=== PATIENT | male | born 1950 | race Caucasian/White ===

== ENCOUNTER 2020-07-22 22:24 | Inpatient (IN) | payer MEDICARE ==
[~2020-07-22] VITALS: Ht 121.9 cm; Wt 82.6 kg
[~2020-07-22 22:24] MED LIST: AMIT100TA PO; ASPI1TAB6 PO; BENA25TA4 PO; CARV25TA PO; FERR325T3 PO; HUMA100I3 SC; LANTINJ4 SC; LIPI80TA PO; LISI20TA33 PO; LYRI75CA PO; MORP30TASA PO; OXYC1SOL3 PO; TETR15DR16 OU; VANC10005 IV; [UNRECOGNIZED DRUG - SUPPLY] IV
[2020-07-23] VITALS (29 sets, daily range): BP systolic 121–170; BP diastolic 55–76; PULSE 75
[2020-07-23 02:53] LABS: BASO % 0.3 % (0.0-1.0); EOS % 0.3 % (0.0-3.0); HEMATOCRIT 28.8 % (42.0-52.0); HEMOGLOBIN 8.7 g/dl (13.5-17.5); LYMPH # 1.1 10^3/uL (1.5-5.0); LYMPH % 15.8 % (24.0-44.0); MEAN CORPUSCULAR HEMOGLOBIN 28.7 pg (27.0-33.0); MEAN CORPUSCULAR HGB CONC 30.2 g/dl (32.0-36.5); MONO # 0.9 10^3/uL (0.0-0.8); MONO % 12.5 % (2.0-8.0); NEUTROPHILS # 5.1 10^3/uL (1.5-8.5); NEUTROPHILS % 70.7 % (36.0-66.0); PLATELET COUNT, AUTOMATED 279 10^3/uL (150-450); RED BLOOD COUNT 3.03 10^6/uL (4.30-6.10); WHITE BLOOD COUNT 7.2 10^3/uL (4.0-10.0)
[2020-07-23 03:31] LABS: ALBUMIN 2.6 GM/DL (3.2-5.2); BILIRUBIN,TOTAL 0.5 MG/DL (0.2-1.0); CREATININE FOR GFR 3.45 MG/DL (0.70-1.30); MAGNESIUM LEVEL 1.8 MG/DL (1.8-2.4); TOTAL PROTEIN 6.3 GM/DL (6.4-8.2)
--- NOTE | 2020-07-23 03:56 | HPEPDOC ---
[facility] Medical History & Physical Date of Admission Jul 23, 2020 Date of Service: Jul 23, 2020 Attending Physician: GRACIELA ARELLANO MD History and Physical CHIEF COMPLAINT: shortness of breath, abdominal pain HISTORY OF PRESENT ILLNESS: 69 year old male with PMHx detailed below who initially presented to [facility] for acute onset shortness of breath and chest tightness. He states that his symptoms began on Monday morning about 10 minutes after waking up, while he was still laying comfortably in bed. He states he has never had symptoms like this before. He describes shortness of breath which is worse upon sitting up and improve while laying flat. He also notes a chest tightness in the middle of his chest. He states this is worse when he is feeling short of breath. He denies radiation of the pain. He reports lightheadedness as well during the episodes of shortness of breath. Additionally the patient has had abdominal pain which he states has been present since Monday as well. He notes he has been vomiting 4-6 times per day and unable to keep down sold food at times. He states he has had decreased appetite for the past 6 weeks as he has been in and out of the hospital. He notes he has lost about 15lbs over the past 6 weeks. He denies bloody vomitus. He states he is incontinent of stool and has not been made aware of any blood in his stool or black, tarry stools. While the patient was admitted to [facility], he was transfused with 2 units PRBCS due to Hg level of 6.7. He was also evaluated with CT of the abdomen and pelvis for his abdominal pain, discussed below. Additionally a CT chest was ordered. PAST MEDICAL HISTORY: Diabetes Mellitus PVD s/p bilateral BKA ESRD on HD Hx of PE, on Eliquis Anemia of chronic disease CHF with diastolic dysfunction Depression Seizure disorder Hypothyroidism PAST SURGICAL HISTORY: Tonsillectomy and adenoidectomy Posttraumatic rhinoplasty Carpal tunnel release Appendectomy Cholecystectomy Two surgeries for bowel obstructions including bowel resection Bilateral BKA Possible additional procedures related to trauma which the patient cannot elaborate on SOCIAL HISTORY: Never smoker. No alcohol use. No history IV drug or illicit substance use. Lives at home with family. Two dogs at home. 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 Mother from leukemia. ALLERGIES: Please see below. REVIEW OF SYSTEMS: CONSTITUTIONAL: Endorses occasional chills and 15lb weight loss. Denies fevers, night sweats, fatigue. HEENT: Denies change in vision, change in hearing. CARDIOVASCULAR: Positive per HPI RESPIRATORY: Denies cough, wheezing. GASTROINTESTINAL: Positive per HPI. Denies diarrhea, constipation, blood in stool. GENITOURINARY: Pt makes little urine, states it has been somewhat less frequent recently. SKIN: Denies rash, lesions. MUSCULOSKELETAL: Endorses chronic back pain which is currently exacerbated. NEUROLOGICAL: Denies headache, dizziness. PSYCHIATRIC: Denies change in mood. HOME MEDICATIONS: Please see below. PHYSICAL EXAMINATION: VITAL SIGNS: See below GENERAL: Alert, comfortable, in no acute distress HEENT: Normocephalic, atraumatic, sclera anicteric, moist mucous membranes NECK: Supple, trachea midline CARDIOVASCULAR: Regular rate and rhythm, normal S1 and S2. No murmurs, rubs, or gallops RESPIRATORY: Breath sounds diminished at the bases bilaterally. Clear in the upper lung gresham bilaterally. No wheezing, rhonchi, or rales. ABDOMEN: Tender to light palpation over the entire right side of the abdomen and somewhat over the LUQ as well. otherwise soft, nondistended, bowel sounds present. EXTREMITIES: No edema. Bilateral BKA. SKIN: Hematoma present over the upper right abdomen NEUROLOGIC: Alert and oriented x3 to person, place and time. No focal deficits appreciated PSYCHIATRIC: Mood and affect appropriate LABORATORY DATA: See below. IMAGING: Reports from [facility] reviewed for CT abdomen/pelvis without contrast and CT chest without contrast MICROBIOLOGY: Please see below. ASSESSMENT: 69 year old male with PMHx including --- who presented with acute onset shortness of breath and abdominal pain with vomiting was transferred from [facility] for evaluation and treatment of pericardial effusion along with further evaluation of abdominal pain PLAN: 1. Shortness of breath likely secondary to pericardial effusion and bilateral pleural effusions vs ACS vs PE - Dr. Palomo consulted of cardiothoracic surgery, appreciate his input and recommendations - CT reported "hemorrhagic pericardial effusion", but review by Dr. 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 TSH, Rh factor and KIM pending for other causes of pericardial effusion - Stat echocardiogram ordered. Trend troponin level. CTA to rule out PE 2. Abdominal pain possibly secondary to infectious duodenitis vs PUD vs cystitis - CT report from [facility] show possible duodenitis and peptic ulcer disease as well as small amount of ascites and hazy mucosal thickening around the bladder. - Lipase pending. Lactic acid pending. - Will repeat the CT abdomen/pelvis in the AM with contrast - Clear liquid diet for now, would consider advancing if tolerated 3. ESRD on hemodialysis - Nephrology consulted for management of hemodialysis while inpatient - Trend BMP daily 4. Acute on chronic anemia - s/p 2 units PRBC transfusion at [facility] on 07/21 - trend CBC daily 5. Hx pulmonary embolism - Eliquis on hold due to question of hemorrhagic effusion 6. Poor peripheral access - PICC line placement ordered 7. Hypothyroidism - continue home levothyroxine 8. Seizure disorder - continue home Keppra DVT prophylaxis: hold on medical prophylaxis due to question of hemorrhagic effusion Disposition: admitted inpatient to ICU expect greater than two midnights stay Laboratory Data Labs 24H Laboratory Tests 2 07/23/20 02:48: Immature Granulocyte % (Auto) 0.4, Neutrophils (%) (Auto) 70.7H, Lymphocytes (%) (Auto) 15.8L, Monocytes (%) (Auto) 12.5H, Eosinophils (%) (Auto) 0.3, Basophils (%) (Auto) 0.3, Neutrophils # (Auto) 5.1, Lymphocytes # (Auto) 1.1L, Monocytes # (Auto) 0.9H, Eosinophils # (Auto) 0.0, Basophils # (Auto) 0.0, Nucleated Red Blood Cells % (auto) 0.0 CBC/BMP Laboratory Tests 07/23/20 02:48 Home Medications Scheduled Apixaban (Eliquis) 5 Mg Tablet, 5 MG PO BID Atorvastatin Calcium (Atorvastatin Calcium) 80 Mg Tablet, 80 MG PO QHS Carvedilol (Carvedilol) 6.25 Mg Tablet, 6.25 MG PO BID Cholecalciferol (Vitamin D3) (Vitamin D3) 1,000 Unit Tablet, 2,000 UNITS PO DAILY Donepezil HCl (Donepezil HCl) 5 Mg Tablet, 5 MG PO QHS Folic Acid/Vit B Complex and C (Rhina-Aubree Tablet) 0.8 Mg Tablet, 1 TAB PO DAILY Furosemide (Lasix) 80 Mg Tablet, 80 MG PO BID Insulin Glargine (Lantus) 100 Unit/1 Ml Vial, 10 UNITS SC QHS Insulin Human Lispro (Humalog) 100 Unit/1 Ml Vial, 15 UNITS SC AC GIVE UP TO 5 ADDITIONAL UNITS IF GLUCOSE > 250 Levetiracetam (Keppra) 500 Mg Tablet, 500 MG PO BID Levothyroxine Sodium (Synthroid) 50 Mcg Tablet, 25 MCG PO DAILY Lidocaine (Lidocaine) 5% Adh..patch, 1 PATCH TOP 3XW APPLY TO LOWER BACK BEFORE DIALYSIS Oxycodone HCl (Oxycodone HCl) 10 Mg Tablet, 10 MG PO QHS Oxycodone HCl (Oxycodone HCl) 10 Mg Tablet, 10 MG PO 4XWK ON NON-DIALYSIS DAYS Oxycodone HCl (Oxycodone HCl) 10 Mg Tablet, 15 MG PO 3XW BEFORE DIALYSIS ON DIALYSIS DAYS ONLY Pantoprazole Sodium (Pantoprazole Sodium) 40 Mg Tablet.dr, 40 MG PO DAILY Polyethylene Glycol 3350 (Miralax) 17 Gm Powd.pack, 17 GM PO Q2D Sertraline HCl (Sertraline HCl) 50 Mg Tablet, 50 MG PO DAILY Silver Sulfadiazine (Ssd) 50 Gm Cream..g., 1 DOSE TOP ASDIRECTED APPLY TO BUTTOCKS AFTER BATHROOM Tamsulosin HCl (Flomax) 0.4 Mg Capsule, 0.4 MG PO DAILY Trazodone HCl (Trazodone HCl) 50 Mg Tablet, 50 MG PO QHS Scheduled PRN Albuterol Sulfate (Ventolin Hfa) 18 Gm Hfa.aer.ad, 2 PUFFS INH BID PRN for SHORTNESS OF BREATH Diphenhydramine HCl (Diphenhydramine HCl) 25 Mg Capsule, 25 MG PO BID PRN for ITCHING Ondansetron HCl (Zofran) 4 Mg Tablet, 4 MG PO Q8H PRN for NAUSEA Oxycodone HCl (Oxycodone HCl) 10 Mg Tablet, 10 MG PO BID PRN for PAIN 4-6 HOURS BETWEEN DOSES Allergies Coded Allergies: Penicillins (Verified Allergy, Unknown, 07/23/20) cephalexin (Verified Allergy, Unknown, 07/23/20) chocolate flavor (Verified Allergy, Unknown, 07/23/20) ketorolac (Verified Allergy, Unknown, 07/23/20) metformin (Verified Allergy, Unknown, 07/23/20) methadone (Verified Allergy, Unknown, 07/23/20) nalbuphine (Verified Allergy, Unknown, 07/23/20) tetracycline (Verified Allergy, Unknown, 07/23/20) GME ATTESTATION GME ATTESTATION My faculty preceptor for this patient encounter was physically present during the encounter and was fully available. All aspects of the patient interview, examination, medical decision making process, and medical care plan development were reviewed and approved by the faculty preceptor. The faculty preceptor is aware and concurs with the plan as stated in the body of this note and will attest to such by his/her cosignature. ATTENDING NOTE ISim, have independently examined this patient and performed my own physical exam, as well as reviewed the documentation and edited where necessary. I have discussed in detail with the resident / student the findings and plan of treatment as documented by the resident / student and edited their note. I agree with their findings and treatment plan and have edited their documentation. I will continue to follow the patient during this hospital stay. CELINA SLADE D.O. Jul 23, 2020 03:56 GRACIELA ARELLANO MD Jul 23, 2020 20:38
[2020-07-23] MEDS ORDERED: DEXTROSE 50% 50 ML SYRINGE IV PRN (04:20)
[2020-07-23] MEDS ORDERED: GLUCAGON INJ 1MG VIAL SC PRN (04:20)
[2020-07-23] MEDS ORDERED: GLUCOSE 4GM CHEW TABLET PO PRN (04:20)
[2020-07-23] MEDS ORDERED: LEVALBUTEROL 1.25 MG/0.5 ML CONCENTRATE NEB NEB PRN (04:25)
[2020-07-23] MEDS ORDERED: TRAZ-252 PO (05:08)
[2020-07-23] MEDS ORDERED: ZOFR4TAB16 PO (05:08)
[2020-07-23] MEDS ORDERED: INSULANT SC (05:08)
[2020-07-23] MEDS ORDERED: PANT40TA29 PO (05:08)
[2020-07-23] MEDS ORDERED: RENATAB5 PO (05:08)
[2020-07-23] MEDS ORDERED: SENN1TAB41 PO (05:08)
[2020-07-23] MEDS ORDERED: SYNT50TA PO (05:08)
[2020-07-23] MEDS ORDERED: ATOR40TA75 PO (05:08)
[2020-07-23] MEDS ORDERED: KEPP1TAB PO (05:08)
[2020-07-23] MEDS ORDERED: OXYC-517 PO (05:08)
[2020-07-23] MEDS ORDERED: D31000TA2 PO (05:08)
[2020-07-23] MEDS ORDERED: INSUHUMDS SC (05:08)
[2020-07-23] MEDS ORDERED: SERT50TA29 PO (05:08)
[2020-07-23] MEDS ORDERED: CARV6.25 PO (05:08)
[2020-07-23] MEDS ORDERED: MIRA1POW3 PO (05:08)
[2020-07-23] MEDS ORDERED: DIPH25CA32 PO (05:08)
[2020-07-23] MEDS ORDERED: TUMS500C PO ×2 (05:08)
[2020-07-23] MEDS ORDERED: PATIENT COMMENT (05:15)
[2020-07-23 06:48] LABS: CK-MB VALUE MASS 1.4 NG/ML (<3.6); MB/CK RELATIVE INDEX 6.09 (< OR =4); THYROID STIMULATING HORMONE 0.578 uIU/ML (0.358-3.740); TROPONIN I 0.02 NG/ML (< 0.10)
[2020-07-23] MEDS: HumaLOG INSULIN (NovoLOG) PER UNIT SC SCH ×4 (07:52→21:00)
[2020-07-23] MEDS: ONDANSETRON 4MG/2ML VIAL IV PRN ×2 (07:52→18:08)
[2020-07-23] MEDS ORDERED: LIDOCAINE 1% MDV 20ML VIAL As Ordered ONE (07:58)
[2020-07-23] MEDS ORDERED: LEVALBUTEROL 1.25 MG/0.5 ML CONCENTRATE NEB NEB SCH (08:00)
--- NOTE | 2020-07-23 08:14 | REP ---
INDICATION: pericardial effusion COMPARISON: None. TECHNIQUE: Portable AP view of the chest FINDINGS: The cardiac silhouette is significantly enlarged and somewhat bulbous. Underlying pericardial effusion is suspected. Pleural effusions and basilar atelectasis noted. No pneumothorax. Skeletal structures intact. IMPRESSION: Cardiomegaly consistent with pericardial effusion. Bilateral pleural effusions and bibasilar atelectasis. <Electronically signed by Paolo Farmer > 07/23/20 0826
--- NOTE | 2020-07-23 08:34 | ECGEPIP ---
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 Order Number: [id number] Reading MD: Aditi Blue Measurements Intervals [place] Rate: 76 P: -25 AR: 198 QRS: 21 QRSD: 80 T: 138 QT: 376 QTc: 423 Interpretive Statements Normal sinus rhythm STT wave abnormality, consider lateral ischemia NoPrior Electronically Signed on 07-23-2020 8:34:40 EST by Aditi Blue
[2020-07-23] MEDS ORDERED: OXYC10TA12 PO ×4 (08:57)
[2020-07-23] MEDS ORDERED: ATOR80TA59 PO (08:57)
[2020-07-23] MEDS ORDERED: FLOM0.4C39 PO (08:57)
[2020-07-23] MEDS ORDERED: VENTAER INH (08:57)
[2020-07-23] MEDS ORDERED: ELIQ5TAB PO (08:57)
[2020-07-23] MEDS ORDERED: SILV50CR TOP (08:57)
[2020-07-23] MEDS ORDERED: LIDO1PAD TOP (08:57)
[2020-07-23] MEDS ORDERED: DONE5TAB82 PO (08:57)
[2020-07-23] MEDS ORDERED: LASI80TA3 PO (08:57)
[2020-07-23] MEDS ORDERED: ISOVUE-370 76% 100ML VIAL As Ordered ONE (09:28)
[2020-07-23] MEDS ORDERED: LIDOCAINE 5% (LIDODERM) PATCH TD ONE (09:55)
--- NOTE | 2020-07-23 10:05 | REP ---
INDICATION: possible PE COMPARISON: None. TECHNIQUE: Axial contrast enhanced images from the thoracic inlet to the upper abdomen using pulmonary embolus technique with multiplanar re-formations. 75 ml Isovue 370 intravenous contrast material administered without complication. This CT examination was performed using the following dose reduction techniques: Automated exposure control, adjustment of mA and/or kv according to the patient's size, and use of iterative reconstruction technique. FINDINGS: Satisfactory enhancement of the pulmonary vasculature is achieved and no filling defects are identified to suggest pulmonary embolus. Thoracic aorta is normal and without aneurysm or dissection. There is a moderate to large pericardial effusion measuring roughly approximately 16 mm in average width suggesting a volume between 250-500 mL. The pericardial fluid is greater than 40 Hounsfield units suggesting complex proteinaceous or hemorrhagic fluid. No underlying cardiomegaly is appreciated. The lung gresham demonstrate poor inspiratory effort along with near complete collapse of the left lower lobe and bilateral atelectasis with small right and moderate left pleural effusions. No pneumothorax. The tracheobronchial tree is relatively patent. Surrounding musculoskeletal structures demonstrate age-related degenerative changes. Limited upper abdomen demonstrates normal bilateral adrenal glands. IMPRESSION: 1. No evidence for pulmonary embolus. Normal appearance of the thoracic aorta. 2. Moderate to large pericardial effusion. No underlying cardiomegaly. 3. Pleural effusions, bibasilar atelectasis, and partial collapse to the left lower lobe. <Electronically signed by Paolo Farmer > 07/23/20 [id number]
--- NOTE | 2020-07-23 10:09 | REP ---
INDICATION: rectus hematoma. COMPARISON: None. TECHNIQUE: Axial contrast-enhanced images of the abdomen using 100 cc Isovue 370 intravenous contrast material with coronal and sagittal reformations. . This CT examination was performed using the following dose reduction techniques: Automated exposure control, adjustment of mA and/or kv according to the patient's size, and use of iterative reconstruction technique. FINDINGS: A small amount of ascites is appreciated primarily along the right pericolic gutter along with a edematous stranding through the mesentery. Liver, spleen, and bilateral adrenal glands are grossly within normal limits. The kidneys appear symmetric lead atrophic and without acute perinephric stranding or hydronephrosis. The pancreas is atrophic and calcifications are identified through the parenchyma and primarily at the level of the pancreatic head and uncinate process measuring up to approximately 13 mm. Patient appears to be status post cholecystectomy and bowel surgery in the right upper abdomen. The visualized enteric system including stomach, and portions of the small and large bowel are without obvious acute process. No obstruction. No free air to suggest perforation. Scattered colonic diverticula noted. Atherosclerotic changes to the aorta and vasculature without aneurysm or dissection. Musculoskeletal structures demonstrate degenerative changes. IMPRESSION: 1. Small amount of ascites and mild edematous infiltration through the visualized mesentery nonspecific and without obvious cause or etiology. 2. Chronic changes including atrophic appearance to the kidneys and atrophic appearance to the pancreas with findings to suggest chronic pancreatitis. 3. Scattered colonic diverticula. <Electronically signed by Paolo Farmer > 07/23/20 1001
--- NOTE | 2020-07-23 11:04 | ECHO ---
DATE OF PROCEDURE: 07/23/2020 Age: 69 Gender: Male Height: 48 inches Weight: 171 pounds Body surface area: 1.46 m2 PATIENT LOCATION: Inpatient ICU, Room 3202. REFERRING PHYSICIAN: Og Jain MD and Felipe Palomo MD. INDICATION: Pericardial effusion. MEASUREMENTS: 2D Measurements: RV 3.0 cm LV 4.7 cm Septum 1.2 cm Posterior wall 1.2 cm Aortic Root 4.0 cm Ascending aorta 4.4 cm LA 3.8 cm LVEF 65% Doppler Measurements: AV 1.28 m/s LVOT 0.93 m/s MV-E 76, A 57, E/A ratio 1.3 Early mitral deceleration time 253 msec E prime medial 5.6, A prime medial 7.3, E prime lateral 5 Average E/E prime ratio 14.3/PCWP 19.7 mmHg PV 0.85 m/s Pulmonary artery acceleration time 98 msec PASP 37 mmHg IVC 2.6 cm COMMENTS: Normal sinus rhythm without intraventricular conduction disturbance. M-mode and two-dimensional echocardiography was performed with pulse, continuous wave, color flow, and tissue Doppler studies. Borderline concentric left ventricular hypertrophy with normal wall motion. Borderline left atrial enlargement with grade 2 LV diastolic dysfunction and mildly elevated estimated mean left atrial pressure. Normal right heart chamber sizes with no more than subtle right ventricular compression with normal right ventricular wall motion otherwise and Doppler evidence of no more than mild pulmonary hypertension. Normal right atrial size, but prominently dilated inferior vena cava with absent respiratory collapse in keeping with elevated central venous pressure. Mildly dilated aortic root and [id number] dilated ascending aorta. Three equal size aortic cusps with slightly thickened cusp edges, but adequate cusp separation and no more than trace to very mild aortic insufficiency. Subtle degenerative changes of his mitral valve apparatus with normal leaflet excursion and no more than trace insufficiency. Normal appearing tricuspid valve with very mild insufficiency. Large pericardial effusion measuring 2.8 cm anteriorly, 2.0 cm inferiorly and 0.8 cm laterally. Associated coagulum adherent to the right ventricular free wall. Pulse Doppler signals did have significant respiratory variation with respiration. This combined with his dilated IVC would be in keeping with a hemodynamically significant pericardial effusion. A preliminary report of this study was relayed to Dr. Palomo at 0810 a.m. 07/23/2020. [facility]
[2020-07-23] MEDS: oxyCODONE 5MG TAB PO PRN (11:17)
[2020-07-23] MEDS ORDERED: oxyCODONE 5MG TAB PO ONE (11:20)
[2020-07-23] MEDS ORDERED: ERTAPENEM SODIUM 1 GM in NS MINI-BAG PLUS 50 ML IV SCH (11:40)
[2020-07-23 12:54] LABS: CK-MB VALUE MASS < 1.0 NG/ML (<3.6); CPK CREATINE PHOSPHOKINASE 20 U/L (39-308); TROPONIN I 0.02 NG/ML (< 0.10)
[2020-07-23 13:20] LABS: HEMATOCRIT 27.1 % (42.0-52.0); HEMOGLOBIN 8.5 g/dl (13.5-17.5); MEAN CORPUSCULAR HEMOGLOBIN 28.9 pg (27.0-33.0); MEAN CORPUSCULAR HGB CONC 31.4 g/dl (32.0-36.5); MEAN CORPUSCULAR VOLUME 92.2 fl (80.0-96.0); PLATELET COUNT, AUTOMATED 273 10^3/uL (150-450); RED BLOOD COUNT 2.94 10^6/uL (4.30-6.10); WHITE BLOOD COUNT 6.3 10^3/uL (4.0-10.0)
[2020-07-23] MEDS ORDERED: LEVALBUTEROL HFA 45MCG/ACT 15 GM INHALER INH PRN (13:30)
[2020-07-23] MEDS: LEVALBUTEROL HFA 45MCG/ACT 15 GM INHALER INH SCH ×2 (14:05→20:08)
[2020-07-23 16:06] LABS: HEPATITIS B CORE ANTIBODY IGM NEGATIVE (NEGATIVE); HEPATITIS B SURFACE ANTIBODY NEGATIVE (POSITIVE); HEPATITIS B SURFACE ANTIGEN NEGATIVE (NEGATIVE); HEPATITIS C VIRUS ABY INDEX < 0.0 INDEX (<0.8)
--- NOTE | 2020-07-23 17:00 | REP ---
INDICATION: poor access, double lumen please. COMPARISON: None. TECHNIQUE: The procedure was performed under the direct supervision of Dr. Varghese. The risks and benefits of the procedure were explained to the patient and informed consent was obtained. The procedure was performed in the ICU at the bedside. The left basilic vein was localized using ultrasound guidance. The skin was prepped and draped in a sterile fashion. 2% lidocaine was used as a local anesthetic. Using ultrasound guidance the basilic vein was cannulated and a 0.018 guidewire was inserted. The needle was removed and a 5.5 Cameroonian dilator and peel-away sheath was inserted over the guide wire. A 5.5 Cameroonian dual lumen catheter was cut to length of 42 cm. The dilator was removed and the catheter was inserted over the guide wire. A portable chest x-ray was performed and the image demonstrates the tip of the catheter to be in the SVC. The peel-away sheath was removed and the catheter was flushed with heparinized saline as per Hospital protocol. The catheter was affixed to the skin and a sterile dressing was applied. The patient tolerated the procedure well and there were no immediate complications. FINDINGS: None IMPRESSION: PICC line insertion with Site-Rityamila. The tip of the catheter is in the SVC. <Electronically signed by Finn Lisa > 07/23/20 1555 <Electronically signed by Mario Varghese > 07/23/20 [id number]
[2020-07-23] MEDS: ERTAPENEM SODIUM 0.5 GM in NS 50 ML IV SCH (18:30)
--- NOTE | 2020-07-23 18:47 | IPNPDOC ---
Subjective Date Seen The patient was seen on 07/23/20. Subjective Chief Complaint/HPI Mr Andrade is a 69-year-old male with end-stage renal disease on dialysis MWF and diabetes mellitus who was transferred here from [facility] who presents with dyspnea and chest tightness and found to have pericardial effusion, pleural effusion, and acute anemia. This morning, is complaining of severe back and abdominal pain. He tells me that it started on Monday. Denies any trauma, but he did have his COVID vaccination on Monday. Otherwise, he was tested for COVID here in anticipation for OR tomorrow. His COVID test was positive. He had COVID pneumonia in April 2020. Symptomatic with a cough. Retested him with the antigen and it was negative. He does not actively have COVID and isolation has been removed Objective Physical Examination General Exam: Positive: Alert, Cooperative Eye Exam: Positive: EOMI; Negative: Sclera icteric ENT Exam: Positive: Atraumatic Neck Exam: Positive: Supple Chest Exam: Positive: Diminished Heart Exam: Positive: Rate Normal, Regular Rhythm Abdomen Exam: Positive: Normal bowel sounds, Soft, Tenderness (extremely tender on the right side) Neuro Exam: Positive: Normal Speech, Cranial Nerves 3-12 NL Psych Exam: Positive: Mental status NL Assessment /Plan Assessment Mr Andrade is a 69-year-old male with end-stage renal disease on dialysis MWF and diabetes mellitus who was transferred here from [facility] who presents with dyspnea and chest tightness and found to have pericardial effusion, pleural effusion, and acute anemia. He is on Eliquis for history of PE. Dr. Palomo was consulted for the pericardial effusion and pleural effusion. Plan to go to OR tomorrow. Otherwise, nephrology consulted for dialysis. Gen. surgery was consulted for right-sided abdominal tenderness. Patient was started on ertapenem for possible infectious duodenitis/colitis. Plan/VTE VTE Prophylaxis Ordered?: Yes Plan 1. Bilateral pleural effusion Dr. Palomo consulted, recommendations appreciated Possibly will be going to the OR tomorrow morning 2. Pericardial effusion Dr. Palomo consulted, recommendations appreciated Echocardiogram demonstrates large pericardial effusion measuring 2.8 cm anteriorly, 2 cm inferiorly, and 0.8 cm laterally 3. Severe right abdominal pain and tenderness CT abdomen and pelvis does not demonstrate hemoperitoneum Light pressure causes severe pain out of proportion Lactic acid 1.3 Consulted general surgery, Dr. Alba, who will see the patient 4. End-stage renal disease on dialysis Normally receives dialysis MWF Missed dialysis on Monday, receiving dialysis today Nephrology following recommendations appreciated 5. Acute on chronic anemia Received 2 units of packed RBCs at [facility] heparin on 07/21/2020 Trend CBC Hold Eliquis 6. History of pulmonary embolism Hold Eliquis 7. Hypothyroidism Continue levothyroxine 8. Seizure disorder Continue Keppra 9. DVT prophylaxis SCDs and teds VS, I&O, 24H, Fishbone Vital Signs/I&O Vital Signs Date Time Temp Pulse Resp B/P (MAP) Pulse Ox O2 Delivery O2 Flow Rate FiO2 07/23/20 18:00 72 121/59 (79) 100 Nasal Cannula 4.0 07/23/20 16:01 97.4 20 I&O- Last 24 Hours up to 6 AM 07/23/20 06:00 Intake Total 0 ml Output Total 0 ml Balance 0 ml Laboratory Data 24H LABS Laboratory Tests 2 07/23/20 02:48: Immature Granulocyte % (Auto) 0.4, Neutrophils (%) (Auto) 70.7H, Lymphocytes (%) (Auto) 15.8L, Monocytes (%) (Auto) 12.5H, Eosinophils (%) (Auto) 0.3, Basophils (%) (Auto) 0.3, Neutrophils # (Auto) 5.1, Lymphocytes # (Auto) 1.1L, Monocytes # (Auto) 0.9H, Eosinophils # (Auto) 0.0, Basophils # (Auto) 0.0, Nucleated Red Blood Cells % (auto) 0.0, Anion Gap 8, Glomerular Filtration Rate 19.0L, Calcium Level 8.0L, Magnesium Level 1.8, Total Bilirubin 0.5, Aspartate Amino Transf (AST/SGOT) 24, Alanine Aminotransferase (ALT/SGPT) 37, Alkaline Phosphatase 102, Total Protein 6.3L, Albumin 2.6L, Albumin/Globulin Ratio 0.7 07/23/20 04:07: Lactic Acid Level 1.3, Lipase 74 07/23/20 04:40: Total Creatine Kinase 23L, Creatine Kinase MB 1.4, Creatine Kinase MB Relative Index 6.09H, Troponin I 0.02, Thyroid Stimulating Hormone (TSH) 0.578, Rheuma toid Factor < 10.0 07/23/20 12:06: Nucleated Red Blood Cells % (auto) 0.0, Coronavirus (COVID-19)(PCR) POSITIVEA 07/23/20 12:23: Total Creatine Kinase 20L, Creatine Kinase MB < 1.0, Creatine Kinase MB Relative Index 5.00H, Troponin I 0.02 07/23/20 12:39: Hepatitis B Surface Antigen NEGATIVE, Hepatitis B Surface Antibody NEGATIVE, Hepatitis B Core IgM Antibody NEGATIVE, Hepatitis C Antibody Index < 0.0 CBC/BMP Laboratory Tests 07/23/20 02:48 07/23/20 12:06 Microbiology Microbiology 07/23/20 Blood Culture, Received Pending ROOPA AMBROSIO 11, 2021 18:47
[2020-07-23] MEDS: **NOTE PATIENT COMMENT** MISC XX SCH (21:00)
[2020-07-23 21:03] LABS: CK-MB VALUE MASS 1.4 NG/ML (<3.6); CPK CREATINE PHOSPHOKINASE 19 U/L (39-308); MB/CK RELATIVE INDEX 7.37 (< OR =4); TROPONIN I < 0.02 NG/ML (< 0.10)
[2020-07-23] MEDS: DONEPEZIL 5 MG TAB PO SCH (22:02)
[2020-07-23] MEDS: CARVedilol 6.25 MG TAB PO SCH (22:03)
[2020-07-23] MEDS: traZODone 50 MG TAB PO SCH (22:03)
[2020-07-23] MEDS: levETIRAcetam 250MG TABLET (KEPPRA) PO SCH (22:04)
[2020-07-23] MEDS: ATORVASTATIN 20 MG TAB PO SCH (22:05)
[2020-07-23] MEDS: oxyCODONE 5MG TAB PO SCH (22:09)
[2020-07-24] VITALS (16 sets, daily range): BP systolic 85–151; BP diastolic 50–77
[2020-07-24] MEDS: D5W/0.9% SODIUM CHLORIDE 1,000 ML IV SCH ×2 (00:12→13:20)
[2020-07-24] MEDS: LEVALBUTEROL HFA 45MCG/ACT 15 GM INHALER INH SCH ×4 (02:38→20:11)
[2020-07-24] MEDS: LEVOTHYROXINE 25MCG TABLET (0.025MG) PO SCH (05:12)
[2020-07-24] MEDS: ONDANSETRON 4MG/2ML VIAL IV PRN (05:23)
[2020-07-24] MEDS: oxyCODONE 5MG TAB PO PRN (05:24)
[2020-07-24 05:45] LABS: BASO % 0.4 % (0.0-1.0); EOS % 0.6 % (0.0-3.0); HEMATOCRIT 26.2 % (42.0-52.0); HEMOGLOBIN 7.9 g/dl (13.5-17.5); LYMPH # 0.8 10^3/uL (1.5-5.0); LYMPH % 15.2 % (24.0-44.0); MEAN CORPUSCULAR HEMOGLOBIN 28.6 pg (27.0-33.0); MEAN CORPUSCULAR HGB CONC 30.2 g/dl (32.0-36.5); MEAN CORPUSCULAR VOLUME 94.9 fl (80.0-96.0); MONO # 0.7 10^3/uL (0.0-0.8); MONO % 12.2 % (2.0-8.0); NEUTROPHILS # 3.9 10^3/uL (1.5-8.5); PLATELET COUNT, AUTOMATED 244 10^3/uL (150-450); RED BLOOD COUNT 2.76 10^6/uL (4.30-6.10); WHITE BLOOD COUNT 5.4 10^3/uL (4.0-10.0)
--- NOTE | 2020-07-24 05:52 | CR.PDOC ---
General Surgery Consultation Date of Consultation 07/23/20 History and Physical CONSULT REPORT FOR: Dr. Johnson (hospitalist service) REASON FOR CONSULTATION: abdominal pain HISTORY OF PRESENT ILLNESS: I was asked to help evaluate the patient's cause for his abdominal pain. He is currently admitted in the ICU for pericardial effusion and pleural effusion. He was transferred from [facility] where he had been admitted since last Monday for shortness of breath, nausea and vomiting. He initially presented about [facility] later transferred to [facility]. He had a prior history of Covid pneumonia. At [facility] he tested positive for Covid. He unfortunately is a poor historian. He tells me he didn't have any abdominal pain prior to last Monday. He points to the right side of the abdomen where his pain is most intense. This is accompanied nausea, retching and vomiting. He denies bloody vomitus. Review of history is from the outside hospital was documenting a chronic abdominal pain though. Also there are reports of a history of GI bleeding where he was admitted at [facility], had an EGD and clipping of the bleed. PAST MEDICAL HISTORY: 1. Diabetes 2. Peripheral vascular disease status post bilateral BKA 3. End-stage renal disease dialysis 4. History of PE on Eliquis 5. Anemia 6. CHF with diastolic dysfunction 7. Seizure disorder PAST SURGICAL HISTORY: INCLUDES: 1. Bilateral below-knee amputation 2. Appendectomy 3. Cholecystectomy 4. Exploratory laparotomy for bowel obstructions with all resection 5. Carpal tunnel release ALLERGIES: Please see below. FAMILY HISTORY: Noncontributory HOME MEDICATIONS: Please see below. REVIEW OF SYSTEMS: GENERAL: Reports fevers, nausea, vomiting, shortness of breath. NECK: Denies any neck pain CARDIOVASCULAR: Reports midsternal chest pain. MUSCULOSKELETAL: Reports chronic back pain. SKIN: Denies rash. NEUROLOGIC: Has seizure disorder. PSYCHIATRIC: Reports depression. HEMATOLOGY/ONCOLOGY: Has prior history of PE maintained on Elliquis. PULMONARY: Reports shortness of breath. GASTROINTESTINAL: Reports associated nausea, vomiting. Reports prior history of gastric ulcer or duodenal ulcer that needed clipping as he was having upper GI bleed back in April. This was done in [facility]. GENITOURINARY: Denies dysuria, frequency, hematuria and nocturia. ENDOCRINE: Denies polydipsia, polyphagia, polyuria, heat or cold intolerance. NUTRITION: Reports poor appetite. PHYSICAL EXAMINATION: VITALS SIGNS: Please see below. GENERAL APPEARANCE:Patient seen, laying in bed, awake, alert, and oriented. Patient complains of right-sided lower abdominal pain, looks moderately uncomfortable during examination SKIN: Warm and dry NECK: Supple, no thyromegaly. No obvious jugular venous distention. LUNGS: Clear to auscultation bilaterally. No wheezing appreciated. HEART: No chest wall abnormalities. Regular rate and rhythm with no murmurs appreciated. ABDOMEN: Abdomen appears mildly distended. He has a long midline incision slightly widened scar from his prior surgeries. No obvious incisional midline hernia. He is exquisitely tender just on light tactile palpation over the right lower paramedian area less so over the left side. He had moderate guarding. When palpating on the right side. EXTREMITIES: Extremities have no deformities. No edema identified ANCILLARIES: . LABORATORY DATA: Please see below. IMAGING STUDIES: He had a CT abdomen and pelvis to [facility] dated 07/22/2020. I do not have the images available. Reading of those said study shows possibility of thickening around the duodenum, possible duodenitis. He had a CT abdomen and pelvis done here dated 07/23/2020 and a small amount of fluid along the right gutter, some mesenteric thickening which is nonspecific. No free air, abscess. Both scan demonstrates some calcification around the pancreas showing possibility of chronic pancreatitis. No acute inflammation on the pancreas. No pseudocysts. IMPRESSION AND PLAN: Right-sided abdominal pain Unclear etiology though he is quite tender over the right paramedian area especially over the right lower abdominal area. His scan shows possibility of chronic pancreatitis so he might have a component of chronic abdominal pain from this. He has a history of possibly a gastric or duodenal ulcer and initial CT from [facility] shows mild thickening at that area so some sort of an ulcer but there is no evidence for any perforation. He is also more tender than I would anticipate for an ulcer type inflammation and this tenderness is mostly on the right lower abdominal wall area away from what I would expect to be for gastric or duodenal ulcer. On the CT in our Hospital there is some suggestion of some mild mesenteric thickening and small amount of fluid along the right gutter. Given that he has pleural and pericardial effusions to fluid is nonspecific and too small to sample. The mesenteric thickening could be some sort of mesenteric panniculitis or just general anasarca for him. Also given history of retching and vomiting could be just abdominal wall straining. He s eems to have some small ecchymosis on the left side so possibility of rectal sheath hematoma given that he is also on anticoagulation is a possibility of there is no big collection that I could see on CT. As of now, no indication for any surgical intervention. Would follow his course for now. Treat the main problem to start with and consider doing endoscopy later on if they source of the pain isn't clear. Continue with PPI treatment for possibility of an ulcer. Vital Signs Vital Signs Date Time Temp Pulse Resp B/P (MAP) Pulse Ox O2 Delivery O2 Flow Rate FiO2 07/24/20 04:00 4.0 07/24/20 04:00 97.6 65 16 112/55 (74) 100 Nasal Cannula I&Os I&O- Last 24 Hours up to 6 AM 07/24/20 06:00 Intake Total 580 ml Output Total 3000 ml Balance -2420 ml Laboratory Data Labs 24H Laboratory Tests 2 07/23/20 12:06: Nucleated Red Blood Cells % (auto) 0.0, Coronavirus (COVID-19)(PCR) POSITIVEA 07/23/20 12:23: Total Creatine Kinase 20L, Creatine Kinase MB < 1.0, Creatine Kinase MB Relative Index 5.00H, Troponin I 0.02 07/23/20 12:39: Hepatitis B Surface Antigen NEGATIVE, Hepatitis B Surface Antibody NEGATIVE, Hepatitis B Core IgM Antibody NEGATIVE, Hepatitis C Antibody Index < 0.0 07/23/20 20:00: Total Creatine Kinase 19L, Creatine Kinase MB 1.4, Creatine Kinase MB Relative Index 7.37H, Troponin I < 0.02 07/23/20 22:15: CBC/BMP Laboratory Tests 07/23/20 12:06 Microbiology Microbiology 07/23/20 Blood Culture, Received Pending Home Medications Scheduled Atorvastatin Calcium (Atorvastatin Calcium) 80 Mg Tablet, 80 MG PO QHS, (Reported) Carvedilol (Carvedilol) 6.25 Mg Tablet, 3.125 MG PO BID Cholecalciferol (Vitamin D3) (Vitamin D3) 1,000 Unit Tablet, 2,000 UNITS PO DAILY, (Reported) Donepezil HCl (Donepezil HCl) 5 Mg Tablet, 5 MG PO QHS, (Reported) Folic Acid/Vit B Complex and C (Rhina-Aubree Tablet) 0.8 Mg Tablet, 1 TAB PO DAILY, (Reported) Furosemide (Lasix) 80 Mg Tablet, 80 MG PO BID, (Reported) Insulin Glargine (Lantus) 100 Unit/1 Ml Vial, 10 UNITS SC QHS, (Reported) Insulin Human Lispro (Humalog) 100 Unit/1 Ml Vial, 15 UNITS SC AC, (Reported) GIVE UP TO 5 ADDITIONAL UNITS IF GLUCOSE > 250 Levetiracetam (Keppra) 500 Mg Tablet, 500 MG PO BID, (Reported) Levofloxacin (Levofloxacin) 250 Mg Tablet, 250 MG PO Q48H Levothyroxine Sodium (Synthroid) 50 Mcg Tablet, 25 MCG PO DAILY, (Reported) Lidocaine (Lidocaine) 5% Adh..patch, 1 PATCH TOP 3XW, (Reported) APPLY TO LOWER BACK BEFORE DIALYSIS Olanzapine (Olanzapine) 5 Mg Tablet, 5 MG PO BID Oxycodone HCl (Oxycodone HCl) 10 Mg Tablet, 10 MG PO QHS, (Reported) Oxycodone HCl (Oxycodone HCl) 10 Mg Tablet, 10 MG PO 4XWK, (Reported) ON NON-DIALYSIS DAYS Oxycodone HCl (Oxycodone HCl) 10 Mg Tablet, 15 MG PO 3XW, (Reported) BEFORE DIALYSIS ON DIALYSIS DAYS ONLY Pantoprazole Sodium (Pantoprazole Sodium) 40 Mg Tablet.dr, 40 MG PO DAILY, (Reported) Polyethylene Glycol 3350 (Miralax) 17 Gm Powd.pack, 17 GM PO Q2D, (Reported) Sertraline HCl (Sertraline HCl) 50 Mg Tablet, 50 MG PO DAILY, (Reported) Silver Sulfadiazine (Ssd) 50 Gm Cream..g., 1 DOSE TOP ASDIRECTED, (Reported) APPLY TO BUTTOCKS AFTER BATHROOM Sucralfate (Sucralfate) 1 Gm Tablet, 1 GM PO ACHS Tamsulosin HCl (Flomax) 0.4 Mg Capsule, 0.4 MG PO DAILY, (Reported) Trazodone HCl (Trazodone HCl) 50 Mg Tablet, 50 MG PO QHS, (Reported) Scheduled PRN Albuterol Sulfate (Ventolin Hfa) 18 Gm Hfa.aer.ad, 2 PUFFS INH BID PRN for SHORTNESS OF BREATH, (Reported) Diphenhydramine HCl (Diphenhydramine HCl) 25 Mg Capsule, 25 MG PO BID PRN for ITCHING, (Reported) Ondansetron HCl (Zofran) 4 Mg Tablet, 4 MG PO Q8H PRN for NAUSEA, (Reported) Oxycodone HCl (Oxycodone HCl) 10 Mg Tablet, 10 MG PO BID PRN for PAIN, (Reported) 4-6 HOURS BETWEEN DOSES Allergies Coded Allergies: Penicillins (Verified Allergy, Unknown, 07/23/20) cephalexin (Verified Allergy, Unknown, 07/23/20) chocolate flavor (Verified Allergy, Unknown, 07/23/20) ketorolac (Verified Allergy, Unknown, 07/23/20) metformin (Verified Allergy, Unknown, 07/23/20) methadone (Verified Allergy, Unknown, 07/23/20) nalbuphine (Verified Allergy, Unknown, 07/23/20) tetracycline (Verified Allergy, Unknown, 07/23/20) MILA CROFT MD Jul 24, 2020 05:52
[2020-07-24 05:55] LABS: INR 1.35
[2020-07-24 05:56] LABS: PARTIAL THROMBOPLASTIN TIME 34.3 SECONDS (24.2-38.5)
[2020-07-24 06:06] LABS: CALCIUM LEVEL 8.1 MG/DL (8.8-10.2); CREATININE FOR GFR 2.78 MG/DL (0.70-1.30); GLOMERULAR FILTRATION RATE 24.4 (>49)
[2020-07-24 06:15] LABS: ABG BASE EXCESS -2.1 (-2.0-2.0); ABG HCO3 23.2 MEQ/L (22.0-26.0); ABG O2 SATURATION 98.9 % (95.0-99.0); ABG PARTIAL PRESSURE O2 174.9 mmHg (75.0-100.0); ABG STANDARD HCO3 22.8 MEQ/L (22.0-26.0); ABG TOTAL CO2 24.5 MEQ/L (23.0-31.0); ABG pH (ARTERIAL) 7.361 UNITS (7.350-7.450)
[2020-07-24] MEDS: HumaLOG INSULIN (NovoLOG) PER UNIT SC SCH ×4 (07:30→20:25)
--- NOTE | 2020-07-24 07:58 | REP ---
INDICATION: pericardial effusion COMPARISON: 07/23/2020 TECHNIQUE: Portable AP view of the chest FINDINGS: Left PICC line with tip in the SVC. Small left axillary arterial stent graft. Cardiac silhouette is again enlarged and consistent with the known pericardial effusion. Lung gresham are essentially unchanged and again suggest pleural effusions and left lower lobe opacity. No pneumothorax. Skeletal structures stable. IMPRESSION: No significant change from prior examination. <Electronically signed by Paolo Farmer > 07/24/20 [id number]
[2020-07-24] MEDS: NEPHRO-VIT TAB (NEPHROCAPS) PO SCH (07:59)
[2020-07-24] MEDS: CARVedilol 6.25 MG TAB PO SCH ×2 (08:00→20:24)
[2020-07-24] MEDS: SERTRALINE HCL 50 MG TAB PO SCH (08:00)
[2020-07-24] MEDS: oxyCODONE 5MG TAB PO SCH ×3 (08:01→20:54)
[2020-07-24] MEDS: TAMSULOSIN 0.4 MG CAP PO SCH (08:01)
[2020-07-24] MEDS: MIRALAX *UNIT DOSE* 17GM PACKET PO SCH (08:01)
[2020-07-24] MEDS: PANTOPRAZOLE 40MG TAB (PROTONIX) PO SCH (08:01)
[2020-07-24] MEDS: levETIRAcetam 250MG TABLET (KEPPRA) PO SCH ×3 (08:01→20:53)
--- NOTE | 2020-07-24 08:10 | CR ---
CONSULTATION DATE: 07/23/2020 REASON FOR CONSULTATION: The patient is seen at the request of the hospitalist service, Dr. Jain, as well as an outside irrigation supervisor at [facility] for a pericardial effusion. HISTORY OF PRESENT ILLNESS: The patient is a 69-year-old white male whose acute story starts this past Monday, when he states he woke up short of breath. Along with the shortness of breath, he had a cough for which he was brining up yellow sputum. He also complains of chills, but not rigor. He denies having a fever. Accompanying this shortness of breath and cough was also chest tightness in the middle of his chest and abdominal pain on his right side. In the last 48 hours, he has had nausea and vomiting and has not been able to eat. He was definitely admitted to [facility] or [facility] where a chest CT was undertaken, which showed a pericardial effusion. The shortness of breath has continued since Monday along with the nausea. The patient has a significant past medical history of diabetes, hypertension, end-stage renal failure requiring dialysis, and is status post bilateral amputations. PAST MEDICAL HISTORY: See HPI. 1. Diabetes. 2. Hypertension. 3. Renal failure requiring dialysis. 4. Positive COVID in April requiring an 11 day hospital stay without the need for mechanical ventilation. 5. Pulmonary embolism on Eliquis. PAST SURGICAL HISTORY: 1. Numerous orthopedic procedures for fractured bones including his knees, elbows, and femur all secondary to trauma and accidents. 2. Two exploratory laparotomies and lysis of adhesions. 3. Four back surgeries. HOME MEDICATIONS: 1. Amitriptyline 100 mg q. h.s. 2. Aspirin 325 mg q. day 3. Lipitor 80 mg q. h.s. 4. Benadryl 50 mg q. h.s. 5. Ferrous sulfate 325 mg b.i.d. 6. Lantus glargine 40 units subcutaneous q. h.s. 7. Lispro 15 units a.c. 8. Lisinopril 20 mg q. day. 9. Morphine sulfate 120 mg p.o. b.i.d. 10. Oxycodone 5 mg p.o. p.r.n. pain. 11. Pregabalin 75 mg b.i.d. 12. Vancomycin 1 gram IV q. day from the [facility]. 13. Eliquis. HABITS: Does not smoke. Does not drink. No illicit drug exposures. He has two dogs a miniature Doxin and a white Labrador mix. No cats or birds. No exposure to tuberculosis. TRAVEL HISTORY: He has been in the [place]. [place]. [place] been to [place]. No travel to the [facility]. 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 There is no asbestos exposure. There is no overt tuberculosis exposure. During his job, which was working for the [employer], his TB tests were all negative. REVIEW OF SYSTEMS: Eyes: Wears glasses without diplopia and without transient monocular blindness. Without prior jaundice. Nose with very occasional nosebleeds. Mouth is edentulous. Respiratory: See HPI. Cardiac: See HPI. No shortness of breath lying down. No paroxysmal nocturnal dyspnea per se. GI: See HPI. With nausea, vomiting, and constipation. Without diarrhea. Without melena, hematochezia, or hematemesis. He does complain of abdominal pain since Monday. : In complete renal failure. Urinates every four days. No blood in his urine. Endocrine: With diabetes. Without thyroid disease. Neurologic: Without paresthesias or paralysis. In the medical record, there is a question of having prior seizures. Psychiatric: Denies anxieties, depressions, or psychoses. FAMILY HISTORY: Not pertinent to the acute situation. PHYSICAL EXAMINATION: GENERAL APPEARANCE: Obese white male with bilateral lower leg amputations complaining of shortness of breath and abdominal pain. VITAL SIGNS: Temperature is 97.2. Heart rate of 76 in a sinus rhythm. Respiratory rate of 16 without the use of accessory muscles who is 100% saturated on 6 liters nasal cannula and whose blood pressure is 154/71. HEENT: Head is normocephalic. Eyes with pupils equal, round, and reactive to light. Extraocular muscles intact. Sclerae nonicteric. Nose without deformity. Mouth shows the mucous membranes to be pink and moist. Lips and commisures without lesions. There is no thrush. He is completely edentulous. NECK: Supple. There is no jugular venous distention, although he is obese and I really do not see veins at all. There are no carotid bruits. He has 2+ carotid upstrokes. No thyromegaly. No lymphadenopathy. Trachea is midline. There is no subcutaneous emphysema. LUNGS: Show bronchophony in the right and left lower hemithoraces with E:A egophony pronounced in the left hemithorax and some E:A egophony in the right lower hemithorax. He said he has difficulty sitting up and I could not percuss him. CARDIAC: Shows a regular rate and rhythm. I hear no murmurs, clicks, gallops, or rubs. I could hear his heart sounds clearly. I cannot feel his PMI. ABDOMEN: Very tender in the right upper quadrant and mid abdomen. It is quite firm. The left side is nontender and soft. There are no peritoneal signs. Bowel sounds are positive. He has ecchymosis on the right side from the midline to about the midclavicular line. I suspect this is a rectus hematoma. EXTREMITIES: Show bilateral amputations. NEUROLOGIC: Shows II through XII grossly intact. Gross motor and sensation intact. PSYCHIATRIC: Shows him to be awake and alert, oriented x3 with appropriate mood and affect and conversational with appropriate anxiety from shortness of breath. INVESTIGATIONS: His white count is 7.2 with hemoglobin and hematocrit of 8.7 and 28.8 respectively. He was found to be anemic in late June and received two transfusions. Platelet count is 279,000 and his differential shows 7% neutrophils, 15% lymphocytes, and 12% monocytes. There are no immature forms and no toxic granulations. His chemistries show normal electrolytes with BUN and creatinine of 46 and 3.45 after dialysis the day before. Glucose is 156 with calcium 8.0 with an albumin of 2.6 and total protein of 6.3. AST and ALT are normal. His total bilirubin is 0.5. His chest CT done at [facility] and viewed on the only disc we were able to find in the emergency room shows a concentric pericardial effusion of about 2 cm. There are no sagittal reconstructions. He has bilateral effusions. I did not look for a rectus hematoma on the CT scan at that time, as I had not examined him at that point in time. I will reexamine the outside CT and also obtain yet another CT. There is no chest x-ray available. Echocardiogram shows again a concentric pericardial effusion, but I do not see any diastolic collapse of the right ventricle or atrium. He does have a vena cava that measures 2.6 cm and does not collapse. There is some respiratory variation in the aortic outflow. IMPRESSION: 1. Concentric pericardial effusion minimally compressive. 2. End-stage renal disease. 3. 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 4. Abdominal pain of unknown origin; possible rectus hematoma. 5. Hypertension. 6. Diabetes. 7. Narcotic dependence for chronic back pain. PLAN AND DISCUSSION: I do not think I need to drain him tonight. I will follow him carefully over the next few days. He evidently tolerated dialysis well yesterday and I do not think that he is in pericardial tamponade. I think continued dialysis would be in order. This may come to elective drainage at some point in time in the near future. I am not at all convinced that I can do this percutaneously. Because of his obesity, subcostally there is an approximate 7-8 cm distance between the skin and the pericardium. I think we need to ferret out his abdominal pain. Because of waking suddenly short of breath on Monday and a history of pulmonary embolism, I think we need to repeat his CT scan with angiographic protocol. Because he is in complete renal failure, that should not be contraindicated. Also, obtain thyroid studies.
--- NOTE | 2020-07-24 08:11 | IPN ---
PROGRESS NOTE DATE: 07/23/2020 Since I last saw him early this morning, Mr. Andrade is status quo. He is still somewhat short of breath, but more significantly his abdominal pain has increased. He is not coughing. I have just been told by the nursing staff that he has tested COVID positive. He had a bout of COVID in April, where he was in the hospital for 11 days, and I suspect this was just residual antigen. His vital signs show a maximum temperature of 97.4 with a heart rate that ranges between 74-79 in sinus rhythm, respiratory rate of 14-20 without the use of accessory muscles, who is 98%-100% saturated on 4 liters nasal cannula, and whose blood pressure is ranging between 170/76 to 141/67. He is more comfortable lying down at about a 15-degree angle. His intake and output since admission has only been 30 in and nothing out. He was last dialyzed 2 days ago. His weight is 78.7 kg. PHYSICAL EXAMINATION: He has decreased breath sounds at each base with E-to-A egophony at the right base. As he cannot sit up, I cannot percussion. Cardiac exam is without murmurs, clicks, gallops, or rubs. I cannot feel his point of maximal impulse (PMI). S1 and S2 are normal. Abdomen is tender, particularly on the right side from the right lower quadrant to the right upper quadrant. Right lower quadrant seems more tender today. There is some guarding now. Left side of his abdomen is soft. Bowel sounds are positive but hypoactive. I cannot appreciate hepatomegaly, as he is tender in the right upper quadrant. There is no edema on his below-knee amputations just below the knee. There is no edema on his thighs. There is no differential swelling of the upper extremities. Skin is warm, dry, and perfused without cyanosis or mottling, including that of the nailbeds and knees. Neck is supple. I do not appreciate jugular venous distention. Trachea is midline. There is no subcutaneous emphysema. Mouth shows the mucous membranes to be pink and moist. Lips and commissures without lesions. There is no thrush. Eyes show his pupils to be equal and reactive. Extraocular motion intact. Sclerae anicteric. Neurologic shows II-XII intact. Normal gross motor, gross sensation intact. Gait is not tested. Psychiatric shows him to be awake, alert, and conversational and able to understand and answer questions. His white count today is 6.3 with a hemoglobin and hematocrit of 8.5 and 27.1, essentially unchanged from earlier this morning with a platelet count of 273. There is no differential. Chemistries today show his troponin to be less than 0.02. His electrolytes were normal early this morning with a BUN and creatinine of 46 and 3.45. His TSH is 578. His rheumatoid factor is less than 10. His KIM is pending. Chest x-ray shows a very large cardiac silhouette. It is done portably. Costophrenic angles are sharp. He has cephalization of vessels. Film was slightly rotated and done portably. Because of his clinical presentation and shortness of breath this past Monday, I did ask for a CT angiogram of his chest. There are no pulmonary emboli noted. I do note that his pericardial effusion looks to be slightly larger than yesterday's CT at [facility]. He has small bilateral pleural effusions with bilateral lower lobe lung compression, greater on the left than the right. Pericardial effusion is concentric. Adrenals have a normal configuration. Kidneys are not visualized on the CT. His abdominal CT does not show a rectus hematoma. IMPRESSION: 1. Pericardial effusion. 2. Renal failure requiring dialysis. 3. Hypertension. 4. Abdominal pain, increasing. 5. Peripheral vascular disease, status post bilateral below-knee amputations. 6. Diabetes. 7. History of pulmonary embolism, formerly on Eliquis, now discontinued. PLAN AND DISCUSSION: His echocardiogram to my reading did not show any chamber compression, although did show a dilated noncompressive inferior vena cava, which I noted last night. His pericardial effusion looks to have gotten larger since the CT scan at [facility] yesterday. I think that my hand is going to be forced to drain this effusion, and whether I will do it by percutaneous techniques or by an open pericardial window, I have still not made up my mind. I will wait until tomorrow until the Jillian goes away, as he is not in clinical tamponade, and obtain an echo tomorrow morning, at which time I will make a decision upon the availability of target to place a pericardiostomy tube. If note, I will take him to the operating room. He has a normal TSH, and I do not think that his pericardial effusion to be a sign to hypothyroidism. I would still maintain that I think that this is going to be uremic pericarditis and not hemorrhagic, although Dr. Macias thinks that he sees a coagulum in the pericardium. Given his physiognomy, neither the percutaneous approach nor an open approach is going to be easy. I have asked the hospitalist service to get general surgery involved because of his abdominal pain. While there is a history of lysis of adhesions for bowel obstructions in the past, I see no history of an appendectomy. I am seriously wondering whether this is appendicitis with right lower quadrant pain increasing to the right upper quadrant with his nausea and vomiting. His white count is not elevated, but that is often the case in appendicitis. I highly doubt that the abdominal pain is secondary to his pericardial effusion and referred. The abdominal pain wound not extend down the right lower quadrant from the pericardium, although I could imagine that the right upper quadrant could be affected. He does not look to be infected, and this does not look to be a bacterial pericarditis. PARUL
--- NOTE | 2020-07-24 08:12 | CR ---
NEPHROLOGY CONSULTATION DATE: 07/23/2020 REQUESTING PHYSICIAN: Og Jain M.D. REASON FOR CONSULTATION: To assist in the management of end-stage renal disease in this gentleman with a large pericardial effusion. HISTORY OF PRESENT ILLNESS: Mr. Andrade is a 69-year-old male with a known history of longstanding diabetes mellitus, hypertension, peripheral vascular disease with prior bilateral below the knee amputations, history of diastolic congestive heart failure, seizure disorder and hypothyroidism. He presented to [facility] for acute shortness of breath and chest tightness. He was found to have a large pericardial effusion due to which he was transferred to [facility] for cardiothoracic surgery intervention. The patient is admitted to the Intensive Care Unit and a Nephrology consultation was requested. He did have a drop in his hemoglobin at the other hospital and hemoglobin was down to 6.7 due to which 2 units of packed RBCs were transfused prior to transfer. There was a suspicion for a hemorrhagic pericarditis. He has been seen by Dr. Palomo and had a repeat CAT scan of his chest done this morning. The patient reports that he was last dialyzed on Monday and his regular dialysis days have been Monday, Monday and Monday as an outpatient. PAST MEDICAL HISTORY: The patient's past medical history is significant for: 1. Longstanding type 2 diabetes. 2. Hypertension. 3. Peripheral vascular disease, status post bilateral below the knee amputations. 4. History of end-stage renal disease requiring maintenance hemodialysis. 5. Prior history of pulmonary embolus, on anticoagulation. 6. Anemia of chronic kidney disease. 7. History of diastolic congestive heart failure. 8. History of seizure disorder. 9. Depression. 10. Hypothyroidism. PAST SURGICAL HISTORY: The patient's past surgical history is significant for: 1. Tonsillectomy and adenoidectomy. 2. Post traumatic rhinoplasty. 3. Carpal tunnel release. 4. Appendectomy. 5. Cholecystectomy. 6. Two surgeries for bowel obstruction. 7. Bilateral below the knee amputations. 8. Right arm AV graft placement. FAMILY HISTORY: The patient's family history is negative for end-stage renal disease. Father with lung cancer and heavy smoking. Mother from leukemia. PERSONAL AND SOCIAL HISTORY: The patient denies any history of smoking, tobacco or alcohol use. MEDICATIONS: The patient's home medications include: 1. Atorvastatin 40 mg daily. 2. Calcium Carbonate 500 mg in a.m. and 1,000 mg at bedtime. 3. Carvedilol 6.25 mg twice daily. 4. Vitamin D 1,000 units 2 tablets daily. 5. Multivitamin one tablet daily. 6. Lantus insulin 10 units daily. 7. Humalog insulin per sliding scale. 8. Keppra 500 mg twice daily. 9. Levothyroxine 50 mcg daily. 10. Pantoprazole 40 mg daily. 11. Miralax as needed for constipation. 12. Senokot one tablet twice daily. 13. Zoloft 50 mg at bedtime. 14. Trazodone 50 mg at bedtime. 15. He also takes Zofran as needed for nausea. 16. Oxycodone as needed for pain. ALLERGIES: The patient has multiple drug allergies includin. Penicillin. 2. Cephalosporins. 3. Metformin. 4. Methadone. 5. Tetracycline 6. Ketorolac. 7. Nalbuphine. REVIEW OF SYSTEMS: The patient continues to have tightness and pain in his chest particularly when he sits up. He feels better when he lays down. He denies any fever or chills. Ears, nose and throat are unremarkable. Respiratory system is negative for hemoptysis or pleuritic type of chest pain. Cardiovascular system is significant for a large pericardial effusion by CAT scan and echocardiogram. GI system is negative for vomiting or diarrhea. Genitourinary system is negative for dysuria or hematuria. Musculoskeletal system is significant for bilateral below the knee amputations. Skin is negative for rash or ulcers. Neurological system is significant for a history of seizure disorder. Hematological system is significant for severe anemia and anticoagulation. He was transfused just 2 units yesterday. Psychosocial system is significant for depression and insomnia. PHYSICAL EXAMINATION: GENERAL APPEARANCE: Elderly male who looks older than his stated age, laying in the bed without any acute distress. VITAL SIGNS: Temperature is 98 degrees Fahrenheit, heart rate 72 per minute, respiratory rate 18 per minute, blood pressure 125/72 mm of mercury and oxygen saturation is 100% on 4 liters oxygen. HEENT: His head is atraumatic. Pupils are equal and reactive to light and sclerae anicteric. NECK: Veins are moderately distended. HEART: Regular, and I do not hear a pericardiac friction rub. LUNGS: Slightly diminished breath sounds bilaterally. ABDOMEN: Soft and significantly tender in the right lower quadrant. Bowel sounds are hypoactive. EXTREMITIES: Without any cyanosis or clubbing. Right upper arm AV graft is patent and without any signs of infection. He has prior bilateral below the knee amputations. LABORATORY DATA: BUN is 46 and creatinine 3.45, glucose 156. Sodium 140, potassium 4.0, CO2 31, calcium 8.0, and lactic 1.3. Total protein 6.3 and albumin 2.6. White blood cell count 7.2, hemoglobin 8.7 and hematocrit 28.8. Troponin is 0.02. PROBLEMS: 1. End-stage renal disease - The patient is regularly dialyzed on a Monday, Monday and Monday schedule as an outpatient, however in the hospital he was last dialyzed on Monday. We will dialyze him today without any Heparin in view of large pericardial effusion and try frequent dialysis to see if that would help. 2. Large pericardial effusion there was a concern about the possibility of hemorrhagic pericardial effusion. The patient has been seen by Dr. Palomo, who did not feel that an urgent surgical intervention was needed. We are going to dialyze him today and would try to dialyze frequently to see if his pericardial effusion would improve. 3. Anemia the patient probably had [id number] anemia. He has end-stage renal disease and may have acute blood loss as he has been anticoagulated. He has already received 2 units of packed RBCs prior to transfer to [facility]. At this point we will monitor closely and transfuse as needed. All other issues are being addressed by Cardiothoracic Surgery, Critical Care and Primary Care Team. Thank you for involving me in the care of Mr. Andrade. Nephrology Service will follow him along with you.
[2020-07-24] MEDS ORDERED: BUPIVACAINE LIPOSOME/PF 1.3% 20ML VIAL (13.3MG/ML)(EXPAREL)(C9290 PER1MG) As Ordered ONE (09:58)
[2020-07-24] MEDS ORDERED: BUPIVACAINE HCL 0.5% 10ML VIAL As Ordered ONE (09:58)
[2020-07-24] MEDS ORDERED: SUGAMMADEX SODIUM 500 MG/5 ML VIAL (BRIDION) As Ordered ONE (10:23)
[2020-07-24] MEDS ORDERED: LIDOCAINE 2% 100MG/5ML SDV (FOR ANES.) As Ordered ONE (10:23)
[2020-07-24] MEDS ORDERED: ROCURONIUM BROMIDE 50 MG/5 ML VIAL As Ordered ONE (10:23)
[2020-07-24] MEDS ORDERED: propofoL 200 MG/20 ML VIAL As Ordered ONE (10:23)
[2020-07-24] MEDS ORDERED: dexameTHASONE 4 MG/ML 1ML VIAL (J1100 PER 1MG) As Ordered ONE (10:24)
[2020-07-24] MEDS ORDERED: KETOROLAC 60MG 2ML VIAL As Ordered ONE (10:24)
[2020-07-24] MEDS ORDERED: ACETAMINOPHEN 1000MG 100ML IV BTL (OFIRMEV) (J0131 PER 10MG) As Ordered ONE (10:24)
[2020-07-24] MEDS ORDERED: ONDANSETRON 4MG/2ML VIAL As Ordered ONE (10:24)
[2020-07-24] MEDS ORDERED: fentaNYL 100 MCG/2 ML INJECTION (J3010) As Ordered ONE (10:24)
[2020-07-24] MEDS ORDERED: MIDAZOLAM INJ 2MG/2ML VIAL (J2250 PER 1MG) As Ordered ONE ×5 (10:24→12:25)
[2020-07-24] MEDS ORDERED: LIDOCAINE 1% MDV 20ML VIAL As Ordered ONE ×2 (11:10→12:25)
[2020-07-24] MEDS ORDERED: LIDOCAINE 1% MDV 20ML VIAL SC ONE (12:00)
[2020-07-24] MEDS ORDERED: MIDAZOLAM INJ 2MG/2ML VIAL (J2250 PER 1MG) IV ONE (12:00)
--- NOTE | 2020-07-24 12:25 | REP ---
INDICATION: check pericardial catheter placement COMPARISON: 07/23/2020 TECHNIQUE: Axial noncontrast images from the thoracic inlet to the upper abdomen with coronal and sagittal reformations. This CT examination was performed using the following dose reduction techniques: Automated exposure control, adjustment of mA and/or kv according to the patient's size, and use of iterative reconstruction technique. FINDINGS: The pericardial drainage catheter via anterior approach appears to be below the level of diaphragm and a small amount of associated pneumoperitoneum is appreciated likely secondary to placement and much less likely related to bowel injury. Mediastinum again demonstrates a moderate pericardial effusion with density suggesting complex proteinaceous material or hemorrhage. The heart itself is without cardiomegaly and moderate atherosclerotic changes to the coronary arteries are identified. Thoracic aorta is relatively normal in appearance. Pulmonary vasculature is relatively normal. Lung gresham demonstrate small to moderate pleural effusions (left greater than right) along with primarily lower lobe atelectasis and left lower lobe consolidation essentially unchanged from prior examination. No pneumothorax. Tracheobronchial tree is relatively patent. Skeletal structures intact. IMPRESSION: 1. Pericardial drainage catheter below the diaphragm with presumed iatrogenic pneumoperitoneum less likely related to bowel injury. 2. Mediastinal and pleuroparenchymal findings including moderate pericardial effusion, bilateral pleural effusions, and lower lobe atelectasis/consolidations essentially unchanged compared to 07/23/2020. <Electronically signed by Paolo Farmer > 07/24/20 [id number]
[2020-07-24] MEDS ORDERED: VANCOMYCIN 1000MG/20ML VIAL As Ordered ONE (12:32)
[2020-07-24] MEDS ORDERED: MUPIROCIN 2% OINT 22 GM TUBE TOP ONE (13:00)
[2020-07-24] MEDS ORDERED: VANCOMYCIN HCL 1,000 MG, VIAL MATE ADAPTER 1 EACH in NS 250 ML IV ONE (13:00)
[2020-07-24] MEDS ORDERED: LIDOCAINE 1% SDV 5ML VIAL SQ ONE (13:10)
--- NOTE | 2020-07-24 13:10 | IPNPDOC ---
Subjective Date Seen The patient was seen on 07/24/20. Subjective Chief Complaint/HPI Mr Andrade is a 69-year-old male with end-stage renal disease on dialysis MWF and diabetes mellitus who was transferred here from [facility] who presents with dyspnea and chest tightness and found to have pericardial effusion, pleural effusion, and acute anemia. He was seen this morning prior to going down to the OR. This morning, he was still having dyspnea and abdominal pain. Pain is still operator. Patient tells me he has been coughing since his COVID diagnosis in April, but worse in the past week. Objective Physical Examination General Exam: Positive: Alert, Cooperative Eye Exam: Positive: EOMI; Negative: Sclera icteric ENT Exam: Positive: Atraumatic Neck Exam: Positive: Supple Chest Exam: Positive: Diminished Heart Exam: Positive: Rate Normal, Regular Rhythm Abdomen Exam: Positive: Normal bowel sounds, Soft, Tenderness (extremely tender on the right side) Neuro Exam: Positive: Normal Speech, Cranial Nerves 3-12 NL Psych Exam: Positive: Mental status NL Assessment /Plan Assessment Mr Andrade is a 69-year-old male with end-stage renal disease on dialysis MWF and diabetes mellitus who was transferred here from [facility] who presents with dyspnea and chest tightness and found to have pericardial effusion, pleural effusion, and acute anemia. He is on Eliquis for history of PE. Dr. Palomo was consulted for the pericardial effusion and pleural effusion. Plan to go to the OR today. Otherwise, spoke with general surgery about right lower abdominal pain and tenderness. Unclear etiology. With his coughing and retching, he may have strained his abdominal wall. He does have ecchymosis along rectal sheath. Imaging did not demonstrate any large collection of fluid, but he may have a small bleed into rectal sheath as he is on blood thinner. Continue with current management. Nephrology also following. Continue with dialysis to see if it would help with the effusions. Plan/VTE VTE Prophylaxis Ordered?: Yes Plan 1. Bilateral pleural effusion Dr. Palomo consulted, recommendations appreciated Possibly will be going to the OR tomorrow morning -Continue dialysis 2. Pericardial effusion Dr. Palomo consulted, recommendations appreciated Echocardiogram demonstrates large pericardial effusion measuring 2.8 cm anteriorly, 2 cm inferiorly, and 0.8 cm laterally -Continue dialysis 3. Severe right abdominal pain and tenderness CT abdomen and pelvis does not demonstrate hemoperitoneum Light pressure causes severe pain out of proportion Lactic acid 1.3 Consulted general surgery, Dr. Alba -Unclear etiology -Maybe small bleed into rectal sheath since there is ecchymosis -Maybe strain abdominal wall muscle 4. End-stage renal disease on dialysis Normally receives dialysis MWF Missed dialysis on Monday, receiving dialysis today Nephrology following recommendations appreciated -May need frequent dialysis to help with the effusions 5. Acute on chronic anemia Received 2 units of packed RBCs at [place] heparin on 07/21/2020 -Additional 3 units of blood ordered here Trend CBC Hold Eliquis 6. History of pulmonary embolism Hold Eliquis 7. Hypothyroidism Continue levothyroxine 8. Seizure disorder Continue Keppra 9. DVT prophylaxis SCDs and teds Disposition: Pending clinical improvement and stabilization of H&H VS, I&O, 24H, Fishbone Vital Signs/I&O Vital Signs Date Time Temp Pulse Resp B/P (MAP) Pulse Ox O2 Delivery O2 Flow Rate FiO2 07/24/20 11:15 97.7 58 112/58 Nasal Cannula 4.0 100 07/24/20 11:00 14 07/24/20 08:00 98 I&O- Last 24 Hours up to 6 AM 07/24/20 06:00 Intake Total 730 ml Output Total 3000 ml Balance -2270 ml Laboratory Data 24H LABS Laboratory Tests 2 07/23/20 20:00: Total Creatine Kinase 19L, Creatine Kinase MB 1.4, Creatine Kinase MB Relative Index 7.37H, Troponin I < 0.02 07/23/20 22:15: 07/24/20 05:00: Immature Granulocyte % (Auto) 0.6, Neutrophils (%) (Auto) 71.0H, Lymphocytes (%) (Auto) 15.2L, Monocytes (%) (Auto) 12.2H, Eosinophils (%) (Auto) 0.6, Basophils (%) (Auto) 0.4, Neutrophils # (Auto) 3.9, Lymphocytes # (Auto) 0.8L, Monocytes # (Auto) 0.7, Eosinophils # (Auto) 0.0, Basophils # (Auto) 0.0, Nucleated Red Blood Cells % (auto) 0.0, Prothrombin Time 17.0H, Prothromb Time International Ratio 1.35, Activated Partial Thromboplast Time 34.3, Anion Gap 7L, Glomerular Filtration Rate 24.4L, Calcium Level 8.1L 07/24/20 06:02: Blood Gas Bicarbonate Standard 22.8, Arterial Blood pH 7.361, Arterial Blood Partial Pressure CO2 42.0, Arterial Blood Partial Pressure O2 174.9H, Arterial Blood Total CO2 24.5, Arterial Blood HCO3 23.2, Arterial Blood Base Excess - 2.1L, Arterial Blood Oxygen Saturation 98.9 07/24/20 07:56: Bedside Glucose (Misc Panel) 150H CBC/BMP Laboratory Tests 07/24/20 05:00 Microbiology Microbiology 07/23/20 Blood Culture, Received Pending ROOPA AMBROSIO 12, 2021 13:10
--- NOTE | 2020-07-24 13:55 | IPN ---
PROGRESS NOTE DATE: 07/24/2020 SUBJECTIVE: Mr. Andrade is seen this morning on his bedside. We decided to dialyze him again today due to pericardial effusion and the possibility that frequent dialysis will help with creating the effusion. Dr. Palomo has seen him and there is likelihood that patient will be going for pericardial window later today. He also has right lower quadrant abdominal pain and reports no changes since yesterday. PHYSICAL EXAMINATION: VITALS: Temperature 97.7 degrees Fahrenheit, heart rate 60 per minute, respiratory rate 17 per minute, blood pressure 106/52 mmHg, oxygen saturation 100% on 4 liter oxygen. GENERAL: Patient is pale looking, but not in any acute distress. He is lying in his bed flat. HEENT: Head atraumatic. Neck supple and JVD not abnormally elevated. He has no oral thrush or ulcers. LUNGS: Slightly diminished breaths sounds at dependent parts. HEART: Sounds are regular and without a pericardial friction rub audible. ABDOMEN: Mildly tender on the right side. Bowel sounds are hyperactive. EXTREMITIES: Without any cyanosis or clubbing. Right arm AV graft is currently being used for dialysis. He has bilateral below the knee amputation. LABORATORY DATA: Today's labs show WBC 5.4, hemoglobin 7.9, hematocrit 26.2, platelets 244,000. Sodium 138, potassium 4.0, CO2 28, BUN 31, creatinine 2.78, glucose 145 and calcium 8.1. PROBLEMS: 1. End-stage renal disease: Patient was dialyzed yesterday and we are dialyzing him again today due to large pericardial effusion. He is tolerating dialysis well. 2. Congestive heart failure: His volume status seems clinically well compensated. We are trying to remove about 2 liters of fluid as tolerated. 3. Anemia: Patient does have significant anemia, though he was transfused prior to transfer from outside hospital. We are going to transfuse him 1 unit of packed RBC's during dialysis. I have explained to patient and he consented for transfusion. 4. Large pericardial effusion: Patient is likely to have pericardial window done today by Dr. Palomo. No Heparin was used during dialysis and patient is being given 1 unit of packed RBC's in order to optimize his condition for possible surgical procedure.
[2020-07-24] MEDS ORDERED: BISACODYL 10 MG SUPP PR PRN (15:00)
[2020-07-24] MEDS ORDERED: PERCOCET 5MG/325MG TAB PO PRN ×2 (15:00)
[2020-07-24] MEDS ORDERED: D5W/0.9% SODIUM CHLORIDE 1,000 ML IV SCH (15:00)
[2020-07-24] MEDS ORDERED: HYDROmorphone HCL 2 MG/ML 1ML VIAL (J1170) As Ordered ONE (15:05)
[2020-07-24] MEDS ORDERED: NS 1,000 ML IV SCH (15:15)
[2020-07-24] MEDS ORDERED: ONDANSETRON 4MG/2ML VIAL IV PRN (15:15)
[2020-07-24] MEDS ORDERED: fentaNYL 100 MCG/2 ML INJECTION (J3010) IV PRN (15:15)
[2020-07-24] MEDS ORDERED: oxyCODONE 5MG TAB PO PRN (15:15)
[2020-07-24] MEDS ORDERED: METOCLOPRAMIDE INJ 10MG/2ML VIAL (J2765 PER 1) IV PRN (15:15)
[2020-07-24] MEDS ORDERED: HYDROMORPHONE HCL 0.5 MG/ 0.5 ML SYRINGE (J1170 PER 1) IV PRN (15:15)
--- NOTE | 2020-07-24 15:30 | REP ---
INDICATION: pericardial effusion COMPARISON: 07/25/2019 at 7 a.m. TECHNIQUE: Portable AP view of the chest FINDINGS: Left PICC line in stable position. New right chest tube overlies the mid lung zone. Pericardial drainage catheter overlies T10-11 disc space. Cardiomegaly is again appreciated. Lung gresham demonstrate chronic changes including left lower lobe consolidation and bibasilar airspace disease along suspected left pleural effusion. Right hemithorax small right apical pneumothorax. IMPRESSION: 1. Enlarged cardiac silhouette similar to prior examination with pericardial drainage catheter. 2. Left lower lobe consolidation and diffuse left-sided airspace disease along with suspected left pleural effusion. Small right apical pneumothorax. <Electronically signed by Paolo Farmer > 07/24/20 [id number]
[2020-07-24 15:38] LABS: SPEC. GRAVITY BODY FLUIDS 1.039 (NOT ESTABLISHED)
[2020-07-24 15:40] LABS: PH BODY FLUID 7.365 UNITS (NOT ESTABLISHED); SOURCE, BODY FLUID pH PERICARDIAL
[2020-07-24 15:43] LABS: SOURCE, BODY FLUID PERICARDIAL
[2020-07-24 15:44] LABS: APPEARANCE, BODY FLUID CLOUDY (CLEAR)
[2020-07-24 16:02] LABS: SOURCE, BODY FLUID ALBUMIN PERICARDIAL
[2020-07-24 16:07] LABS: ANTINUCLEAR ANTIBODIES DIRECT Negative (Negative)
[2020-07-24 16:18] LABS: LDH, BODY FLUID 3444 U/L (NOT ESTABLISHED); SOURCE, BODY FLUID GLUCOSE PERICARDIAL; SOURCE, BODY FLUID LDH PERICARDIAL; SOURCE, BODY FLUID TOT PROTEIN PERICARDIAL; TOTAL PROTEIN, BODY FLUID 6.4 G/DL (NOT ESTABLISHED)
[2020-07-24 16:22] LABS: BASO % 0.2 % (0.0-1.0); EOS % 0.2 % (0.0-3.0); HEMATOCRIT 28.7 % (42.0-52.0); HEMOGLOBIN 8.7 g/dl (13.5-17.5); LYMPH # 0.4 10^3/uL (1.5-5.0); LYMPH % 5.9 % (24.0-44.0); MEAN CORPUSCULAR HEMOGLOBIN 28.6 pg (27.0-33.0); MEAN CORPUSCULAR HGB CONC 30.3 g/dl (32.0-36.5); MEAN CORPUSCULAR VOLUME 94.4 fl (80.0-96.0); MONO # 0.3 10^3/uL (0.0-0.8); MONO % 4.8 % (2.0-8.0); NEUTROPHILS # 5.4 10^3/uL (1.5-8.5); NEUTROPHILS % 88.4 % (36.0-66.0); PLATELET COUNT, AUTOMATED 204 10^3/uL (150-450); RED BLOOD COUNT 3.04 10^6/uL (4.30-6.10); WHITE BLOOD COUNT 6.1 10^3/uL (4.0-10.0)
[2020-07-24 16:50] LABS: CREATININE FOR GFR 1.79 MG/DL (0.70-1.30); GLOMERULAR FILTRATION RATE 40.5 (>49)
[2020-07-24] MEDS: MOM 30ML SUSPENSION UDC PO SCH (17:33)
[2020-07-24] MEDS: ERTAPENEM SODIUM 0.5 GM in NS 50 ML IV SCH (17:34)
[2020-07-24] MEDS: DONEPEZIL 5 MG TAB PO SCH ×2 (20:36→20:53)
[2020-07-24] MEDS: DOCUSATE SODIUM 100MG CAPSULE PO SCH ×2 (20:36→20:53)
[2020-07-24] MEDS: traZODone 50 MG TAB PO SCH ×2 (20:37→20:53)
[2020-07-24] MEDS: ATORVASTATIN 20 MG TAB PO SCH ×2 (20:37→20:53)
[2020-07-24] MEDS: **NOTE PATIENT COMMENT** MISC XX SCH (20:38)
[2020-07-24] MEDS: HEPARIN SOD (PORCINE) 5000UNITS/ML 1ML VIAL/SYRINGE SC SCH (20:39)
[2020-07-25] VITALS (28 sets, daily range): BP systolic 103–148; BP diastolic 49–67
[2020-07-25] MEDS: LEVALBUTEROL HFA 45MCG/ACT 15 GM INHALER INH SCH ×4 (01:18→20:12)
[2020-07-25] MEDS: oxyCODONE 5MG TAB PO PRN ×2 (03:45→16:01)
[2020-07-25] MEDS: LEVOTHYROXINE 25MCG TABLET (0.025MG) PO SCH (05:17)
[2020-07-25 05:39] LABS: HEMATOCRIT 25.2 % (42.0-52.0); HEMOGLOBIN 7.6 g/dl (13.5-17.5); LYMPH # 0.7 10^3/uL (1.5-5.0); LYMPH % 9.4 % (24.0-44.0); MEAN CORPUSCULAR HEMOGLOBIN 28.6 pg (27.0-33.0); MEAN CORPUSCULAR HGB CONC 30.2 g/dl (32.0-36.5); MEAN CORPUSCULAR VOLUME 94.7 fl (80.0-96.0); MONO # 0.8 10^3/uL (0.0-0.8); MONO % 12.1 % (2.0-8.0); NEUTROPHILS # 5.4 10^3/uL (1.5-8.5); NEUTROPHILS % 78.2 % (36.0-66.0); PLATELET COUNT, AUTOMATED 219 10^3/uL (150-450); RED BLOOD COUNT 2.66 10^6/uL (4.30-6.10); WHITE BLOOD COUNT 6.9 10^3/uL (4.0-10.0)
[2020-07-25 05:58] LABS: CALCIUM LEVEL 7.2 MG/DL (8.8-10.2); CREATININE FOR GFR 2.45 MG/DL (0.70-1.30); GLOMERULAR FILTRATION RATE 28.2 (>49); POTASSIUM SERUM 4.2 MEQ/L (3.5-5.1)
[2020-07-25] MEDS ORDERED: VANCOMYCIN HCL 1,000 MG, VIAL MATE ADAPTER 1 EACH in NS 250 ML IV ONE (06:00)
[2020-07-25] MEDS: HumaLOG INSULIN (NovoLOG) PER UNIT SC SCH ×4 (07:30→20:27)
--- NOTE | 2020-07-25 08:49 | REP ---
INDICATION: pericardial effusion COMPARISON: 07/24/2020 TECHNIQUE: AP and lateral. FINDINGS: Evaluation is significantly limited by technique, underpenetration and poor inspiratory effort as well as positioning. Mediastinum again demonstrates enlarged cardiac silhouette with pericardial drainage catheter identified overlying the lower thoracic spine. Left-sided PICC line in stable position with tip in the SVC. Right chest tube is again identified and a very small residual right apical pneumothorax cannot be excluded. Left hemithorax demonstrates lower lobe opacities suggesting areas of consolidation/atelectasis and pleural effusion. IMPRESSION: 1. Lines and tubes in relatively stable satisfactory position. 2. Continued left lower lobe opacities similar to prior examination. <Electronically signed by Paolo Farmer > 07/25/20 0824
[2020-07-25] MEDS: DOCUSATE SODIUM 100MG CAPSULE PO SCH ×2 (09:00→20:28)
[2020-07-25] MEDS: MOM 30ML SUSPENSION UDC PO SCH (09:04)
[2020-07-25] MEDS: oxyCODONE 5MG TAB PO SCH ×2 (09:05→20:31)
[2020-07-25] MEDS: TAMSULOSIN 0.4 MG CAP PO SCH (09:06)
[2020-07-25] MEDS: PANTOPRAZOLE 40MG TAB (PROTONIX) PO SCH (09:06)
[2020-07-25] MEDS: SERTRALINE HCL 50 MG TAB PO SCH (09:06)
[2020-07-25] MEDS: NEPHRO-VIT TAB (NEPHROCAPS) PO SCH (09:06)
[2020-07-25] MEDS: levETIRAcetam 250MG TABLET (KEPPRA) PO SCH ×2 (09:06→20:29)
[2020-07-25] MEDS: HEPARIN SOD (PORCINE) 5000UNITS/ML 1ML VIAL/SYRINGE SC SCH ×2 (09:07→20:30)
[2020-07-25] MEDS: CARVedilol 6.25 MG TAB PO SCH ×2 (09:11→20:29)
--- NOTE | 2020-07-25 12:40 | IPNPDOC ---
Subjective Date Seen The patient was seen on 07/25/20. Subjective Chief Complaint/HPI Mr Andrade is a 69-year-old male with end-stage renal disease on dialysis MWF and diabetes mellitus who was transferred here from [facility] who presents with dyspnea and chest tightness and found to have pericardial effusion, pleural effusion, and acute anemia. Yesterday afternoon, he went to the OR. He had a pericardial window placed and chest tube placed. This morning, his chest tube had serosanguineous fluid and the pericardial drain had dark maroon fluid. Otherwise, he still reports abdominal pain. I spoke with Neph rology about blood transfusion for hemoglobin declining. Will give 1u pRBC today Objective Physical Examination General Exam: Positive: Alert, Cooperative Eye Exam: Positive: EOMI; Negative: Sclera icteric ENT Exam: Positive: Atraumatic Neck Exam: Positive: Supple Chest Exam: Positive: Diminished Heart Exam: Positive: Rate Normal, Regular Rhythm Abdomen Exam: Positive: Normal bowel sounds, Soft, Tenderness (extremely tender on the right side) Neuro Exam: Positive: Normal Speech, Cranial Nerves 3-12 NL Psych Exam: Positive: Mental status NL Assessment /Plan Assessment Mr Andrade is a 69-year-old male with end-stage renal disease on dialysis MWF and diabetes mellitus who was transferred here from [facility] who presents with dyspnea and chest tightness and found to have pericardial effusion, pleural effusion, and acute anemia. He is on Eliquis for history of PE. Dr. Palomo was consulted for the pericardial effusion and pleural effusion. Patient went to the OR on 07/25/2020 and had a pericardial window placed and chest tube placed. Otherwise, spoke with general surgery about right lower abdominal pain and tenderness. Unclear etiology. With his coughing and retching, he may have strained his abdominal wall. He does have ecchymosis along rectal sheath. Imaging did not demonstrate any large collection of fluid, but he may have a small bleed into rectal sheath as he is on blood thinner. Continue with current management. Nephrology also following. Continue with dialysis for ESRD. Plan/VTE VTE Prophylaxis Ordered?: Yes Plan 1. Bilateral pleural effusion Dr. Palomo consulted, recommendations appreciated Went to the OR on 07/24/2020 for chest tube -Continue dialysis 2. Pericardial effusion Dr. Palomo consulted, recommendations appreciated Echocardiogram demonstrates large pericardial effusion measuring 2.8 cm anteriorly, 2 cm inferiorly, and 0.8 cm laterally -Continue dialysis Went to the OR on 07/24/2020 for pericardial window 3. Severe right abdominal pain and tenderness CT abdomen and pelvis does not demonstrate hemoperitoneum Light pressure causes severe pain out of proportion Lactic acid 1.3 Consulted general surgery, Dr. Alba -Unclear etiology -Maybe small bleed into rectal sheath since there is ecchymosis -Maybe strain abdominal wall muscle 4. End-stage renal disease on dialysis Normally receives dialysis MWF Nephrology following recommendations appreciated -May need frequent dialysis to help with the effusions 5. Acute on chronic anemia Received 2 units of packed RBCs at [facility] on 07/21/2020 -A total of 2 units have been given here Trend CBC Hold Eliquis 6. History of pulmonary embolism Hold Eliquis 7. Hypothyroidism Continue levothyroxine 8. Seizure disorder Continue Keppra 9. DVT prophylaxis SCDs and teds Disposition: Pending clinical improvement and stabilization of H&H. Will be transfused with 1 unit of blood today for a total of 2 units during hospitalization at [facility]. He had 2 units prior at [facility], so 4 units in total. VS, I&O, 24H, Fishbone Vital Signs/I&O Vital Signs Date Time Temp Pulse Resp B/P (MAP) Pulse Ox O2 Delivery O2 Flow Rate FiO2 07/25/20 11:21 97.8 69 20 118/54 98 Nasal Cannula 2.0 07/24/20 11:15 100 I&O- Last 24 Hours up to 6 AM 07/25/20 06:00 Intake Total 970 ml Output Total 2740 ml Balance -1770 ml Laboratory Data 24H LABS Laboratory Tests 2 07/24/20 15:04: Bedside Glucose (Misc Panel) 103 07/24/20 15:30: Body Fluid Specific [place] 1.039, Body Fluid pH 7.365, Body Fluid pH Source PERICARDIAL, Body Fluid WBC (Auto) 1353H, Body Fluid RBC (Auto) 2428, Body Fluid Mononuclear Cells % Auto 53.6H, Fluid Polymorphonuclear Cell % Auto 46.4H, Body Fluid Glucose Source PERICARDIAL, Body Fluid Glucose 71, Body Fluid Protein Source PERICARDIAL, Body Fluid Total Protein 6.4, Body Fluid Albumin Source PERICARDIAL, Body Fluid Albumin 1.8, Body Fluid LDH Source PERICARDIAL, Body Fluid Lactate Dehydrogenase 3444, Pericardial Fluid Source PERICARDIAL, Pericardial Fluid Color RED, Pericardial Fluid Appearance CLOUDY 07/24/20 16:09: Immature Granulocyte % (Auto) 0.5, Neutrophils (%) (Auto) 88.4H, Lymphocytes (%) (Auto) 5.9L, Monocytes (%) (Auto) 4.8, Eosinophils (%) (Auto) 0.2, Basophils (%) (Auto) 0.2, Neutrophils # (Auto) 5.4, Lymphocytes # (Auto) 0.4L, Monocytes # (Auto) 0.3, Eosinophils # (Auto) 0.0, Basophils # (Auto) 0.0, Nucleated Red Blood Cells % (auto) 0.0, Anion Gap 8, Glomerular Filtration Rate 40.5L, Calcium Level 8.0L 07/24/20 17:22: Bedside Glucose (Misc Panel) 123H 07/24/20 20:22: Bedside Glucose (Misc Panel) 236H 07/25/20 05:20: Immature Granulocyte % (Auto) 0.3, Neutrophils (%) (Auto) 78.2H, Lymphocytes (%) (Auto) 9.4L, Monocytes (%) (Auto) 12.1H, Eosinophils (%) (Auto) 0.0, Basophils (%) (Auto) 0.0, Neutrophils # (Auto) 5.4, Lymphocytes # (Auto) 0.7L, Monocytes # (Auto) 0.8, Eosinophils # (Auto) 0.0, Basophils # (Auto) 0.0, Nucleated Red Blood Cells % (auto) 0.0, Anion Gap 7L, Glomerular Filtration Rate 28.2L, Calcium Level 7.2L 07/25/20 07:47: Bedside Glucose (Misc Panel) 113 07/25/20 12:13: Bedside Glucose (Misc Panel) 221H CBC/BMP Laboratory Tests 07/24/20 16:09 07/25/20 05:20 Microbiology Microbiology 07/24/20 Acid Fast Stain, Received Pending 07/24/20 Mycobacterial Culture, Received Pending 07/24/20 Fungal Smear, Received Pending 07/24/20 Fungal Culture, Received Pending 07/24/20 Gram Stain - Final, Resulted 07/24/20 Body Fluid Culture, Resulted Pending 07/24/20 Anaerobic Culture, Resulted Pending 07/23/20 Blood Culture - Preliminary, Resulted No growth after 24 hours . All specim... ROOPA AMBROSIO DO Jul 25, 2020 12:40
[2020-07-25] MEDS: ERTAPENEM SODIUM 0.5 GM in NS 50 ML IV SCH (16:01)
[2020-07-25 16:24] LABS: HEMATOCRIT 26.9 % (42.0-52.0); HEMOGLOBIN 8.4 g/dl (13.5-17.5); MEAN CORPUSCULAR HGB CONC 31.2 g/dl (32.0-36.5); MEAN CORPUSCULAR VOLUME 92.8 fl (80.0-96.0); PLATELET COUNT, AUTOMATED 197 10^3/uL (150-450); WHITE BLOOD COUNT 6.7 10^3/uL (4.0-10.0)
[2020-07-25] MEDS: SODIUM CHLORIDE 0.9% INJ 10 ML SYR IV SCH (17:18)
[2020-07-25] MEDS: ATORVASTATIN 20 MG TAB PO SCH (20:28)
[2020-07-25] MEDS: traZODone 50 MG TAB PO SCH (20:28)
[2020-07-25] MEDS: DONEPEZIL 5 MG TAB PO SCH (20:29)
[2020-07-25] MEDS ORDERED: CEPACOL LOZENGE PO PRN (20:35)
[2020-07-25] MEDS: **NOTE PATIENT COMMENT** MISC XX SCH (20:37)
[2020-07-26] VITALS (26 sets, daily range): BP systolic 104–177; BP diastolic 51–80
[2020-07-26] MEDS: LEVALBUTEROL HFA 45MCG/ACT 15 GM INHALER INH SCH ×4 (00:26→20:12)
[2020-07-26] MEDS: LEVOTHYROXINE 25MCG TABLET (0.025MG) PO SCH (05:34)
[2020-07-26] MEDS: SODIUM CHLORIDE 0.9% INJ 10 ML SYR IV SCH ×2 (05:34→17:06)
[2020-07-26 06:11] LABS: EOS % 0.3 % (0.0-3.0); HEMATOCRIT 27.1 % (42.0-52.0); HEMOGLOBIN 8.2 g/dl (13.5-17.5); LYMPH % 15.5 % (24.0-44.0); MEAN CORPUSCULAR HEMOGLOBIN 28.1 pg (27.0-33.0); MEAN CORPUSCULAR HGB CONC 30.3 g/dl (32.0-36.5); MEAN CORPUSCULAR VOLUME 92.8 fl (80.0-96.0); MONO # 0.7 10^3/uL (0.0-0.8); NEUTROPHILS # 4.6 10^3/uL (1.5-8.5); NEUTROPHILS % 72.7 % (36.0-66.0); PLATELET COUNT, AUTOMATED 192 10^3/uL (150-450); RED BLOOD COUNT 2.92 10^6/uL (4.30-6.10); WHITE BLOOD COUNT 6.3 10^3/uL (4.0-10.0)
[2020-07-26 06:23] LABS: CALCIUM LEVEL 7.1 MG/DL (8.8-10.2); CREATININE FOR GFR 3.64 MG/DL (0.70-1.30); GLOMERULAR FILTRATION RATE 17.9 (>49); POTASSIUM SERUM 4.3 MEQ/L (3.5-5.1)
[2020-07-26] MEDS: HumaLOG INSULIN (NovoLOG) PER UNIT SC SCH ×5 (07:30→20:36)
[2020-07-26] MEDS: MIRALAX *UNIT DOSE* 17GM PACKET PO SCH (08:24)
[2020-07-26] MEDS: DOCUSATE SODIUM 100MG CAPSULE PO SCH ×2 (08:24→20:32)
[2020-07-26] MEDS: MOM 30ML SUSPENSION UDC PO SCH (08:24)
[2020-07-26] MEDS: NEPHRO-VIT TAB (NEPHROCAPS) PO SCH (08:25)
[2020-07-26] MEDS: oxyCODONE 5MG TAB PO SCH ×2 (08:25→20:32)
[2020-07-26] MEDS: SERTRALINE HCL 50 MG TAB PO SCH (08:26)
[2020-07-26] MEDS: CARVedilol 6.25 MG TAB PO SCH ×2 (08:26→20:32)
[2020-07-26] MEDS: levETIRAcetam 250MG TABLET (KEPPRA) PO SCH ×2 (08:26→20:32)
[2020-07-26] MEDS: PANTOPRAZOLE 40MG TAB (PROTONIX) PO SCH (08:26)
[2020-07-26] MEDS: TAMSULOSIN 0.4 MG CAP PO SCH (08:26)
--- NOTE | 2020-07-26 08:44 | REP ---
INDICATION: pericardial effusion COMPARISON: 07/25/2020 TECHNIQUE: PA and lateral. FINDINGS: Right-sided chest tube is in stable position. Pericardial drainage catheter in stable position. No obvious right pneumothorax. Left lower lobe/retrocardiac opacity appears more dense than prior examination and suggestive of increasing consolidation/left lower lobe collapse with adjacent airspace disease and possible left pleural fluid. Free air below the right hemidiaphragm is identified on current examination and may be continued as noted on prior CT dated 07/24/2020. However, correlation with physical examination is recommended to exclude possibility of new pneumoperitoneum. IMPRESSION: 1. Right chest tube and pericardial drainage catheter in stable position. 2. Increasing left lower lobe consolidation. 3. Free air below the right hemidiaphragm as described above may be consistent with prior air identified on chest CT dated 07/24/2020 although physical examination correlation is recommended to exclude the possibility of new cause. <Electronically signed by Paolo Farmer > 07/26/20 [id number]
--- NOTE | 2020-07-26 09:10 | IPN ---
PROGRESS NOTE DATE: 07/25/2020 SUBJECTIVE: The patient was seen and examined at the bedside today morning in the ICU. Last 24 hour events were noted. The patient was dialyzed yesterday. He tolerated the hemodialysis procedure well. He was taken to the OR yesterday. He has pleural and pericardial tubes now. He is having hemorrhagic output from both the tubes. He is also complaining of pain in the abdomen at this time. OBJECTIVE: Vital signs: Temperature is 99.1 degrees Fahrenheit, blood pressure 121/57, pulse is 66, respiratory rate of 18, saturating 98% on nasal cannula at 2 liters. Intake and output: There is no urine output recorded. Chest tube drainage is 325 ml so far total, which includes the mediastinal drainage and the right pleural drainage. Ultrafiltration with hemodialysis was 1 liter yesterday. Weight in the bed scale is 76.4 kg. PHYSICAL EXAMINATION: General: The patient is awake, alert and oriented x3, mild painful discharge lying in bed. Head and neck examination: Extraocular muscles intact. Pupils equally round and reactive to light. Mucous membranes are moist. Neck is supple. There is no significant jugular venous distention (JVD). Cardiovascular: S1, S2. He has a pericardial drain. Respiratory: Mildly decreased breath sounds at the bases. Right pleural chest tube was also noted. Abdomen: Soft, nontender. Old surgical scar in the midline was noted, which is healing. Right lower quadrant tenderness was also noted. Musculoskeletal: Bilateral below-knee amputation. No significant edema of the stumps. CONCRETE BLOCK LAYER: No focal deficit. Power is 5/5 in bilateral upper extremities. LABORATORY REVIEW: Complete blood count (CBC) showed a WBC 6.7, hemoglobin was 7.6, platelets are 219. Basic metabolic panel (BMP) today morning showed sodium 139, potassium 4.2, chloride 106, bicarbonate 26, BUN 26, creatinine is 2.4, it was 1.7 yesterday. Microbiology: All the cultures are pending so far. IMAGING: A chest x-ray was done today morning, which showed lines and tubes in stable satisfactory position. Left lower lobe opacity was noted. CURRENT INPATIENT MEDICATIONS: The patient's medications were all reviewed by myself. She continues to be on IV ertapenem and vancomycin. I am going to stop the subcutaneous heparin since the patient has bilateral lower extremity amputations and he is having hemorrhagic drainage from the chest tubes. No other significant change in the medications. ASSESSMENT AND PLAN: 1. End-stage renal disease. The patient is dialysis dependent. He was dialyzed yesterday. He tolerated the hemodialysis procedure well. Next hemodialysis will be on Monday. 2. Pleural and pericardial effusion. The patient had pericardial drain and right pleural drainage placed yesterday, it is hemorrhagic. The patient is getting 1 unit of packed red blood cell transfusion. Heparin subcutaneous has been stopped. 3. Congestive heart failure. Volume status is being optimized with dialysis. He is also having drainage through the chest tube. 4. Anemia secondary to renal failure and blood loss. The patient got one more unit of packed red blood cell (PRBC) transfusion today. He is also being started on Aranesp with dialysis. 5. Right lower quadrant abdominal pain and tenderness. Surgical services on board. CAT scan did not show any intraabdominal pathology.
[2020-07-26] MEDS: ONDANSETRON 4MG/2ML VIAL IV PRN (10:58)
[2020-07-26] MEDS: LIDOCAINE 5% (LIDODERM) PATCH TD SCH (10:58)
[2020-07-26] MEDS: SODIUM CHLORIDE 0.9% INJ 10 ML SYR IV PRN (10:58)
--- NOTE | 2020-07-26 11:33 | IPNPDOC ---
Subjective Date Seen The patient was seen on 07/26/20. Subjective Chief Complaint/HPI Mr Andrade is a 69-year-old male with end-stage renal disease on dialysis MWF and diabetes mellitus who was transferred here from [facility] who presents with dyspnea and chest tightness and found to have pericardial effusion, pleural effusion, and acute anemia. He went to the OR on 07/24/2020 for chest tube and pericardial tube. Pericardial tube removed on 07/26/2020. This morning, he denies any chest pain or dyspnea. Still has abdominal pain. 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 This may be from waking up too early. Otherwise, he has not been sleeping well at all. Objective Physical Examination General Exam: Positive: Alert, Cooperative Eye Exam: Positive: EOMI; Negative: Sclera icteric ENT Exam: Positive: Atraumatic Neck Exam: Positive: Supple Chest Exam: Positive: Diminished Heart Exam: Positive: Rate Normal, Regular Rhythm Abdomen Exam: Positive: Normal bowel sounds, Soft, Tenderness (extremely tender on the right side) Neuro Exam: Positive: Normal Speech, Cranial Nerves 3-12 NL Psych Exam: Positive: Mental status NL, Oriented x 3 Assessment /Plan Assessment Mr Andrade is a 69-year-old male with end-stage renal disease on dialysis MWF and diabetes mellitus who was transferred here from [facility] who presents with dyspnea and chest tightness and found to have pericardial ef fusion, pleural effusion, and acute anemia. He is on Eliquis for history of PE. Dr. Palomo was consulted for the pericardial effusion and pleural effusion. Patient went to the OR on 07/24/2020 and had a pericardial window placed and chest tube placed. The pericardial tube was removed 07/26/2020. Otherwise, spoke with general surgery about right lower abdominal pain and tenderness. Unclear etiology. With his coughing and retching, he may have strained his abdominal wall. He does have ecchymosis along rectal sheath. Imaging did not demonstrate any large collection of fluid, but he may have a sma ll bleed into rectal sheath as he is on blood thinner. Will add on lidocaine patch to see if it would help with the pain. Nephrology also following. Continue with dialysis for ESRD. Plan/VTE VTE Prophylaxis Ordered?: Yes Plan 1. Bilateral pleural effusion Dr. Palomo consulted, recommendations appreciated Went to the OR on 07/24/2020 for chest tube -Continue dialysis 2. Pericardial effusion Dr. Palomo consulted, recommendations appreciated Echocardiogram demonstrates large pericardial effusion measuring 2.8 cm anteriorly, 2 cm inferiorly, and 0.8 cm laterally -Continue dialysis Went to the OR on 07/24/2020 for pericardial window. Pericardia tube removed on 07/26/2020 3. Severe right abdominal pain and tenderness CT abdomen and pelvis does not demonstrate hemoperitoneum Light pressure causes severe pain out of proportion Lactic acid 1.3 Consulted general surgery, Dr. Alba -Unclear etiology -Maybe small bleed into rectal sheath since there is ecchymosis -Maybe strain abdominal wall muscle -Added lidocaine patch to help with the pain 4. End-stage renal disease on dialysis Normally receives dialysis F Nephrology following recommendations appreciated -May need frequent dialysis to help with the effusions 5. Acute on chronic anemia Received 2 units of packed RBCs at [facility] on 07/21/2020 -A total of 2 units have been given here Trend CBC Hold Eliquis 6. History of pulmonary embolism Hold Eliquis 7. Hypothyroidism Continue levothyroxine 8. Seizure disorder Continue Keppra 9. 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 DVT prophylaxis SCDs and teds Disposition: Pending clinical improvement and stabilization of H&H. He has had 2 units of pRBC here and 2 units prior at [facility]. 4 units of blood given in total VS, I&O, 24H, Fishbone Vital Signs/I&O Vital Signs Date Time Temp Pulse Resp B/P (MAP) Pulse Ox O2 Delivery O2 Flow Rate FiO2 07/26/20 09:10 71 173/71 (105) 95 Nasal Cannula 2.0 07/26/20 08:55 22 07/26/20 08:00 98.4 07/24/20 11:15 100 I&O- Last 24 Hours up to 6 AM 07/26/20 06:00 Intake Total 1006 ml Output Total 240 ml Balance 766 ml Laboratory Data 24H LABS Laboratory Tests 2 07/25/20 12:13: Bedside Glucose (Misc Panel) 221H 07/25/20 14:45: Bedside Glucose (Misc Panel) 208H 07/25/20 16:07: Nucleated Red Blood Cells % (auto) 0.0 07/25/20 17:23: Bedside Glucose (Misc Panel) 199H 07/25/20 20:16: Bedside Glucose (Misc Panel) 165H 07/26/20 05:40: Immature Granulocyte % (Auto) 0.5, Neutrophils (%) (Auto) 72.7H, Lymphocytes (%) (Auto) 15.5L, Monocytes (%) (Auto) 11.0H, Eosinophils (%) (Auto) 0.3, Basophils (%) (Auto) 0.0, Neutrophils # (Auto) 4.6, Lymphocytes # (Auto) 1.0L, Monocytes # (Auto) 0.7, Eosinophils # (Auto) 0.0, Basophils # (Auto) 0.0, Nucleated Red Blood Cells % (auto) 0.0, Anion Gap 8, Glomerular Filtration Rate 17.9L, Calcium Level 7.1L CBC/BMP Laboratory Tests 07/25/20 16:07 07/26/20 05:40 Microbiology Microbiology 07/24/20 Acid Fast Stain, Received Pending 07/24/20 Mycobacterial Culture, Received Pending 07/24/20 Fungal Smear, Received Pending 07/24/20 Fungal Culture, Received Pending 07/24/20 Gram Stain - Final, Complete 07/24/20 Body Fluid Culture - Final, Complete 07/24/20 Anaerobic Culture - Final, Complete 07/23/20 Blood Culture - Preliminary, Resulted No Growth after 48 hours. All Specime... ROOPA AMBROSIO 14, 2021 11:33
--- NOTE | 2020-07-26 13:40 | RO ---
OPERATIVE NOTE DATE OF OPERATION: 07/24/2020 PREPROCEDURE DIAGNOSIS: Pericardial effusion. POSTPROCEDURE DIAGNOSIS: Pericardial effusion. SURGEON: Felipe Palomo M.D. PROCEDURE: Percutaneous tube pericardiostomy under echocardiographic control. ANESTHESIA: 4 mg Versed. FINDINGS: The needle of the wire could clearly be seen from the pericardium. I initially got out about 50 mL. Placement of the actual of the actual pericardiostomy tube went without difficulty; however, I was expecting to get more fluid and there was no fluid that was emanating from the pericardial tube. The patient was then therefore taken to CT scan, where the pericardial tube was found to traverse the pericardium into the abdomen below the diaphragm. The patient was then taken to the operating room for pericardial window. DESCRIPTION OF PROCEDURE: Under satisfactory moderate sedation achieved with 4 mg of Versed, the patient was prepped and draped in the usual sterile fashion. The pericardial fluid was located in the subxiphoid. Needle was placed and under echocardiographic control the wire was placed. The tract was dilated and a pericardiostomy tube was then placed after successful dilations. The above findings were noted. One more attempt was made in order to again find the pericardium under echocardiographic control and again passed the tube and resulted in the same result of nothing coming from the tube. The tube was sutured to the skin with 2-0 silk sutures, and the patient was then sent for the CT scan.
--- NOTE | 2020-07-26 14:00 | IPN ---
PROGRESS NOTE DATE: 07/24/2020 SUBJECTIVE: Mr. Andrade states he is not feeling all that well today. My plan is to take him to the operating room today for a pericardial window; however, I will attempt a tube pericardiostomy under echo control. OBJECTIVE: VITAL SIGNS: Show a T-max of 97.8 with a heart rate that ranges between 54 and 70 in sinus rhythm. Respiratory rate of 18 to 26 without the use of accessory muscles who was 98% to 100% saturated on 4 liters nasal cannula and whose blood pressure is ranging between 158/70 to 85/50. He is presently on dialysis. INTAKE AND OUTPUT: Over the past 24 hours has been recorded as 280 in and 3000 out. The 3000 out coming from hemodialysis. His weight today is 77.7 kg compared to 78.7 kg yesterday. RESPIRATORY: His lungs show equal breath sounds on either side. Because of his abdominal pain, I cannot sit him up to percuss him or listen to him. CARDIAC: Without murmurs, clicks, gallops, or rubs. I cannot feel his PMI. S1 and S2 are normal. ABDOMEN: Soft and nontender on the left side, but on the right side he is exquisitely tender on the right side down to the right lower quadrant and the right upper quadrant. Bowel sounds are positive, but hypoactive. EXTREMITIES: He has bilateral ankle amputations, but there is no edema in the thighs. There is no differential swelling of the upper extremities. SKIN: Warm, dry, and perfused without cyanosis or mottling, including that of the nail beds and knees. NECK: Supple. There is no jugular venous distention. No subcutaneous emphysema. Trachea is midline that I can detect through his obesity. MOUTH: Shows the mucous membranes to be pink and moist. Lips and commisures are without lesions and no thrush. EYES: Show his pupils equal and reactive. Extraocular movements are intact. Sclerae nonicteric. NEUROLOGIC: Shows II through XII intact. Normal gross motor, gross sensation intact. Gait is not tested. PSYCHIATRIC: Shows him to be awake, alert, and oriented x3 with appropriate mood and affect and conversational. LABORATORY DATA: His white count today is 5.4 with hemoglobin and hematocrit of 7.9 and 26.2 respectively. He is getting one unit of blood on dialysis. Platelet count is 244,000 and differential shows 71% neutrophils, 15% lymphocytes, and 12% monocytes. There are no immature forms and no toxic granulations. His electrolytes are normal with a BUN and creatinine of 31 and 2.78 with a glucose of 145 and a calcium of 8.1. IMAGING DATA: His chest x-ray shows an enlarged cardiac silhouette. IMPRESSION: 1. Pericardial effusion. 2. Possible uremic pericarditis versus hemorrhagic pericarditis. 3. Renal failure requiring dialysis. 4. Hypertension. 5. Abdominal pain increasing. 6. Peripheral vascular disease status post bilateral below-knee amputations. 7. Diabetes. 8. History of pulmonary embolism formerly on Eliquis now discontinued. PLAN AND DISCUSSION: I am going to attempt to do a percutaneous tube pericardiostomy under echo control. If that is no successful, we will take him to the operating room to undertake a pericardial window. The patient understands the risks and benefits and is willing to proceed.
[2020-07-26] MEDS: OLANZapine 5 MG TAB PO SCH ×2 (14:01→20:32)
[2020-07-26] MEDS: ERTAPENEM SODIUM 0.5 GM in NS 50 ML IV SCH (17:06)
--- NOTE | 2020-07-26 17:14 | IPN ---
PROGRESS NOTE DATE: 07/25/2020 SUBJECTIVE: This is now the first postoperative day for Mr. Andrade. His pain is being fairly well-controlled at the incision site. He is still complaining of right lower abdominal pain. I am having great difficulty interpreting the Is and Os. There are four entries for two chest tubes and I do not know what refers to what, it is entirely confusing. OBJECTIVE: VITAL SIGNS: Show a T-max of 98.2 with a heart rate that ranges between 64 and 81 in sinus rhythm. Respiratory rate of 16 to 22 without the use of accessory muscles who is 97% to 100% saturated on 2 liters nasal cannula and whose blood pressure is ranging between 132/53 to 111/55. INTAKE AND OUTPUT: Shows 1420 in and 2560 out. The chest tubes are uninterpretable. RESPIRATORY: I cannot sit him up because of his abdominal pain. He has coarse rhonchi throughout both lungs, however, supine. CARDIAC: Shows more distant heart sounds without murmurs, clicks, gallops, or rubs. I cannot feel his PMI. S1 and S2 are normal. ABDOMEN: Tender in the right upper and lower quadrants, but particularly in the right lower quadrant. His left side is soft and bowel sounds are positive, but hypoactive. There is no differential swelling of his upper extremities. NECK: Supple. There is no jugular venous distention. No subcutaneous emphysema. His trachea is midline. His obesity may be hiding jugular venous distention. MOUTH: Shows his mucous membranes to be pink and moist. Lips and commisures without lesions. No thrush. EYES: Show his pupils equal and reactive. Extraocular movements are intact. Sclerae nonicteric. NEUROLOGIC: Shows II through XII intact. Normal gross motor, gross sensation intact. Gait is not tested. PSYCHIATRIC: Shows him to be awake and alert. LABORATORY DATA: His white count is 6.9 with hemoglobin and hematocrit of 7.6 and 25.2 respectively with a platelet count of 219,000. Differential shows 78% neutrophils, 9% lymphocytes, and 12% monocytes. There are no immature forms and no toxic granulations. Electrolytes are normal with a BUN and creatinine of 26 and 2.45. He was dialyzed yesterday. Glucose is 139 with a calcium of 7.2. Medical service is going to transfuse him one unit for his hemoglobin of 7.6. I have milked his chest tube and I think that his pericardial tube is now clotted off. IMPRESSION: 1. Pericardial effusion hemorrhagic. 2. Renal failure requiring dialysis. 3. Hypertension. 4. Abdominal pain status quo. 5. Peripheral vascular disease status post bilateral below-knee amputations. 6. Diabetes. 7. History of pulmonary embolism formerly on Eliquis now discontinued. PLAN AND DISCUSSION: I will obtain an echocardiogram on Monday to look at his pericardium once again. I am absolutely in the dark about how much has come out of his pericardial tube over the past 24 hours. He now has a pericardial window and so he theoretically should not reaccumulate pericardial fluid. General surgery is involved in his abdominal management.
--- NOTE | 2020-07-26 17:45 | IPN ---
PROGRESS NOTE DATE: 07/26/2020 SUBJECTIVE: Mr. Andrade is still complaining of lower abdominal pain particularly on the right side. This is his main complaint. Echo done yesterday showed no pericardial effusion present and looks as though the pericardial tube is clotted off and I will therefore remove it. OBJECTIVE: VITAL SIGNS: Show a T-max of 98.7 with a heart rate that ranges between 66 and 71 in sinus rhythm. Respiratory rate of 16 to 22 without the use of accessory muscles who is 94 % to 97% saturated on 2 liters nasal cannula and whose blood pressure is ranging between 177/80 to 123/59. INTAKE AND OUTPUT: Over the past 24 hours has been recorded as 1006 in and 390 out for a positivity of 600 mL. He has put out 375 mL from the pleural tube and 15 from the pericardial tube. There is no air leak. RESPIRATORY: I still cannot sit him up as he hurts so much in his abdomen. His lungs show equal breath sounds on either side with some coarse rhonchi on either side posterolaterally. CARDIAC: Shows a pericardial friction rub without murmurs, clicks, or gallops. I cannot feel his PMI. S1 and S2 are normal. ABDOMEN: bull ladle tender in the right lower and right upper quadrant, more on the right lower quadrant. His left side is soft and nontender and has active bowel sounds. EXTREMITIES: His thighs show no edema, although the stumps of his below-knee amputations are slightly edematous. There is no differential swelling of the upper extremities. SKIN: Warm, dry, and perfused without cyanosis or mottling, including that of the nail beds and knees. NECK: Supple. There is no jugular venous distention. No subcutaneous emphysema. Trachea is midline. MOUTH: Shows the mucous membranes to be pink and moist. Lips and commisures are without lesions and no thrush. EYES: Show his pupils equal and reactive. Extraocular movements are intact. Sclerae nonicteric. NEUROLOGIC: Shows II through XII intact. Normal gross motor, gross sensation intact. Gait is not tested. PSYCHIATRIC: Shows him to be awake and alert with appropriate mood and affect and conversational. LABORATORY DATA: His white count today is 6.3 with a hemoglobin and hematocrit of 8.2 and 27.1. He was transfused two units of packed cells today and yesterday. His platelet count is 192,000 and stable and differential shows 72% neutrophils, 15% lymphocytes, and 11% monocytes. There are no immature forms and no toxic granulations. Electrolytes are normal with a BUN and creatinine of 40 and 3.64. Glucose is 161 with a calcium of 7.1. His KIM screen is negative as is his rheumatoid factor. Pathology is pending on the pericardium. IMAGING DATA: His chest x-ray done AP shows his lungs fully expand to the chest wall with an enlarged heart silhouette. It is AP, however. There looks to be some air under the right diaphragm and I suspect that is secondary to my initial pericardial tube, which went below the diaphragm. There is no pattern of obstruction in that part of the bowel that is seen on chest x-ray. IMPRESSION: 1. Pericardial effusion resolved with a pericardial window and tube pericardiostomy. 2. Renal failure requiring dialysis. 3. Hypertension. 4. Abdominal pain status quo. 5. Peripheral vascular disease status post bilateral below-knee amputations. 6. Diabetes. 7. History of pulmonary embolism formerly on Eliquis now discontinued. PLAN AND DISCUSSION: I will remove his pericardial tube today. His echo done yesterday did not show any pericardial effusion and he has a good ejection fraction. The origin of his abdominal pain is still obscure. It does not, however, look life threatening. I am not totally convinced that this is a muscle strain, although it could be a rectus hematoma, which we just cannot see on the CT.
--- NOTE | 2020-07-26 17:55 | RO ---
OPERATIVE NOTE DATE OF OPERATION: 07/24/2020 PREPROCEDURE DIAGNOSIS: Pericardial effusion. POSTPROCEDURE DIAGNOSIS: Pericardial effusion with fluid seen to be hemorrhagic. PROCEDURES: 1. Tube pericardiostomy. 2. Pericardial window. 3. Xiphoidectomy. 4. Distal sternectomy. SURGEON: Felipe Palomo M.D. CAFETERIA TEAM LEADER: None. ANESTHESIA: General. FINDINGS: The fluid within the pericardial sac was hemorrhagic. There was an exudate over the heart consistent with old clotted blood. Initially, 300 mL was obtained from the pericardium. There were numerous adhesions and I suspect there is going to be more over the next few hours after loculations coalesce. Pericardial window was then undertaken by removing a portion of the pericardium and pleura. DESCRIPTION OF PROCEDURE: Under satisfactory general anesthesia, the patient was prepped and draped in usual sterile fashion and a xiphoid and subxiphoid incision was made in the upper abdomen. The incision was carried down to the linea alba, which was divided. The xiphoid and distal sternum had to be removed as the patient is quite obese. Copious amounts of pericardial fat had to be removed from the pericardium until I could see the pericardium. The sternum was elevated by use of a Rultract retractor. The sternum was incised with a #15 blade and the specimens were collected for the requisite studies, including chemistries, cytologies, hematologies, and bacteriologies. Gently, the loculations were broken up. My finger could be swept down to the well of the pericardium and over the anterior surface of the heart and the right ventricle. After removing the fluid, a portion of the pericardium was removed, as was pleura, to create a pericardial window. A pleural tube was placed through a separate stab wound incision in the anterior chest and a #24 curved pericardial tube was placed into the pericardial well. After achieving adequate hemostasis, the linea alba was closed with running 0-Vicryl suture. The subcutaneous tissue was closed with 3-0 Vicryl suture. The skin was closed with running 3-0 Monocryl subcuticular suture. The patient tolerated the procedure well and left the operating room in satisfactory condition to the recovery room.
[2020-07-26] MEDS: ATORVASTATIN 20 MG TAB PO SCH (20:32)
[2020-07-26] MEDS: traZODone 50 MG TAB PO SCH (20:32)
[2020-07-26] MEDS: DONEPEZIL 5 MG TAB PO SCH (20:32)
[2020-07-26] MEDS: **NOTE PATIENT COMMENT** MISC XX SCH (20:45)
[2020-07-26] MEDS ORDERED: QUEtiapine FUMARATE 25 MG TAB PO SCH (21:00)
[2020-07-26] MEDS ORDERED: DARBEPOETIN 200MCG/0.4ML *DIALYSIS* SYRINGE (J0882 PER 1MCG) IV SCH (22:15)
--- NOTE | 2020-07-26 22:49 | IPN ---
PROGRESS NOTE DATE: 07/26/2020 SUBJECTIVE: Patient was seen and examined at the bedside today morning in the intensive care unit (ICU). He continues to have right-sided chest tube. He is still complaining of right lower quadrant abdominal pain. He otherwise denies any other active complaints. OBJECTIVE: Vital signs: Temperature is 98.2 degrees Fahrenheit, blood pressure 104/51, pulse is 62, respiratory rate of 16, saturating 98% on nasal cannula at 2 liters. Intake and output: There is no urine output recorded, chest tube drainage is 260 mL since overnight. Weight in the bed scale is 77.9 kg. PHYSICAL EXAMINATION: General: Patient is awake, alert, oriented times three, laying in bed, mild painful distress. Head and neck exam: Extraocular muscles intact. Pupils equally round and reactive to light. Mucous membranes are moist. Neck is supple. No significant jugular venous distension (JVD). Cardiovascular: S1, S2, regular rate. No edema of the bilateral lower extremities. Respiratory: Mildly decreased breath sounds at the bases. He has a right-sided pleural drain. Abdomen: Severely tender to deep palpation in the right lower quadrant. He has a healing midline abdominal surgical scar. Musculoskeletal: He has bilateral below-knee amputations. 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 Power is 5/5 in bilateral upper extremities. LABORATORY REVIEW: CBC showed a WBC of 6.3, hemoglobin 8.2, platelets are 192. BMP showed sodium 137, potassium 4.3, chloride 104, bicarbonate 25, BUN 40, creatinine is 3.6. Microbiology: All the cultures are negative so far. CURRENT INPATIENT MEDICATIONS: Patient's medications were all reviewed by myself. He is currently on IV ertapenem. No other significant change in the medications today. ASSESSMENT AND PLAN: 1. End-stage renal disease. Patient will be dialyzed tomorrow morning at the bedside. 2. Pleural and pericardial effusion. Patient's pericardial drain has been removed by cardiothoracic (CT) surgery. He still has right-sided chest tube. 3. Persistent right lower quadrant abdominal pain. Patient has air under the right diaphragm as well. Surgical service is on board. We have to make sure that patient does not have any viscus perforation. 4. Anemia in end-stage renal disease. Hemoglobin level is 8.2. Patient is status post 2 units of packed red blood cells (PRBC) transfusion. He is also being started on Aranesp with dialysis.
[2020-07-27] VITALS (17 sets, daily range): BP systolic 132–165; BP diastolic 62–98
[2020-07-27] MEDS: LEVALBUTEROL HFA 45MCG/ACT 15 GM INHALER INH SCH ×4 (01:07→19:56)
[2020-07-27] MEDS: LEVOTHYROXINE 25MCG TABLET (0.025MG) PO SCH (05:49)
[2020-07-27] MEDS: SODIUM CHLORIDE 0.9% INJ 10 ML SYR IV SCH ×2 (05:50→17:27)
[2020-07-27] MEDS: TAMSULOSIN 0.4 MG CAP PO SCH (05:51)
[2020-07-27] MEDS: DOCUSATE SODIUM 100MG CAPSULE PO SCH ×2 (05:51→21:00)
[2020-07-27] MEDS: NEPHRO-VIT TAB (NEPHROCAPS) PO SCH (05:52)
[2020-07-27] MEDS: levETIRAcetam 250MG TABLET (KEPPRA) PO SCH ×2 (05:52→21:00)
[2020-07-27] MEDS: MOM 30ML SUSPENSION UDC PO SCH (05:52)
[2020-07-27] MEDS: PANTOPRAZOLE 40MG TAB (PROTONIX) PO SCH (05:53)
[2020-07-27] MEDS: SERTRALINE HCL 50 MG TAB PO SCH (05:53)
[2020-07-27 06:24] LABS: BASO % 0.2 % (0.0-1.0); EOS # 0.1 10^3/uL (0.0-0.5); EOS % 1.9 % (0.0-3.0); HEMATOCRIT 27.8 % (42.0-52.0); HEMOGLOBIN 8.5 g/dl (13.5-17.5); LYMPH % 17.2 % (24.0-44.0); MEAN CORPUSCULAR HEMOGLOBIN 28.6 pg (27.0-33.0); MEAN CORPUSCULAR HGB CONC 30.6 g/dl (32.0-36.5); MEAN CORPUSCULAR VOLUME 93.6 fl (80.0-96.0); MONO # 0.6 10^3/uL (0.0-0.8); MONO % 10.1 % (2.0-8.0); NEUTROPHILS % 70.1 % (36.0-66.0); PLATELET COUNT, AUTOMATED 201 10^3/uL (150-450); RED BLOOD COUNT 2.97 10^6/uL (4.30-6.10); WHITE BLOOD COUNT 5.8 10^3/uL (4.0-10.0)
[2020-07-27 06:46] LABS: CREATININE FOR GFR 3.71 MG/DL (0.70-1.30); GLOMERULAR FILTRATION RATE 17.5 (>49); POTASSIUM SERUM 3.9 MEQ/L (3.5-5.1)
[2020-07-27] MEDS ORDERED: LIDOCAINE 1% SDV 5ML VIAL SC PRN (07:20)
[2020-07-27] MEDS: HumaLOG INSULIN (NovoLOG) PER UNIT SC SCH ×4 (07:28→21:00)
[2020-07-27] MEDS: LIDOCAINE 5% (LIDODERM) PATCH TD SCH (07:52)
[2020-07-27] MEDS: CARVedilol 6.25 MG TAB PO SCH ×2 (07:52→21:00)
--- NOTE | 2020-07-27 08:12 | REP ---
INDICATION: pericardial effusion COMPARISON: 07/26/2020 TECHNIQUE: Portable AP view of the chest FINDINGS: Examination is significantly limited by portable technique. Left PICC line with tip in the SVC. Right chest tube in stable position without significant change to the appearance of the right hemithorax. Cardiac silhouette remains prominent and the previously noted pericardial drain is not visible and may have been removed. Increasing generalized opacity involving the left hemithorax suggesting airspace disease and pleural effusion. IMPRESSION: Increased generalized opacity to the left hemithorax concerning for increasing airspace disease and pleural fluid. Previously noted pericardial catheter appears to have been removed. <Electronically signed by Paolo Farmer > 07/27/20 0809
[2020-07-27] MEDS: oxyCODONE 5MG TAB PO SCH ×2 (09:00→21:00)
[2020-07-27] MEDS: OLANZapine 5 MG TAB PO SCH ×2 (09:00→21:00)
--- NOTE | 2020-07-27 09:06 | REP ---
INDICATION: ? left pleural effusion. COMPARISON: None. Chest CT dated 07/24/2020. TECHNIQUE: The study is performed without IV contrast. FINDINGS: The previous pericardial catheter has been removed. The volume of iatrogenic intraperitoneal air has significantly decreased. The volume of pericardial fluid has significantly decreased. There has been interval placement of a right thoracotomy tube. The right pleural effusion has decreased in size a and is almost entirely resolved. There is a small volume of atelectasis in the superior segment of the right lower lobe and posteriorly in the right upper lobe.. There is a moderate left pleural effusion, not significantly changed. With the patient supine on the scanning table this pleural effusion tracks posteriorly in the pleural space to the apex of the left hemithorax. Cardiac size is enlarged. This is unchanged. There is a left upper extremity PICC line with tip in the superior vena cava in satisfactory location. There is no pneumothorax. The unenhanced thoracic aorta is unremarkable. The unenhanced pulmonary arteries are unremarkable. There is no pneumomediastinum. IMPRESSION: The pericardial catheter has been removed. The volume of pericardial effusion has decreased. The volume of iatrogenic intraperitoneal air has significantly decreased. Interval placement of a right thoracotomy tube. The right pleural effusion is decreased in size. There is a moderate left pleural effusion as described, not significantly changed. Right lower lobe atelectasis. Cardiomegaly, unchanged. . <Electronically signed by Mario Nazario > 07/27/20 0902
[2020-07-27] MEDS ORDERED: LIDOCAINE 1% MDV 20ML VIAL IM ONE (09:50)
[2020-07-27] MEDS ORDERED: BUPIVACAINE HCL 0.25% 10ML VIAL SC ONE (10:00)
--- NOTE | 2020-07-27 11:24 | IPNPDOC ---
Text Note Date of Service The patient was seen on 07/27/20. NOTE I followed up on the patient today. Still complaining of right-sided abdominal pain, some mild nausea though he was able to tolerate some food intake yesterday. He reported he threw up his breakfast today. He has been afebrile. He had a pericardial window done last Monday. He still has his right side chest tube. Still reports some chest heaviness, shortness breath but reports this is better. He reports he has moved his bowels twice over the weekend. Vital signs Stable, afebrile Tmax 90 91D current 97.9 BP 132/62 pulse rate 66 respiratory rate 18 pulse oximetry reading 96% at 2 L nasal cannula Exam Patient was sleeping looks comfortable in the room when I entered. On waking up he was complaining that his abdominal pain is just the same as it was when I saw him last Monday morning. Skin is warm and dry, pale in appearance He has a right-sided chest tube His abdomen looks less distended. He has a dry dressing from the pericardiostomy tube that was removed at the epigastric area. He has a long midline incision likewise a transverse right lower quadrant scar from his appendectomy. He is tender over the right side of the abdomen more at the paramedian area at the right lower quadrant. Nontender on the left side of the midline. There is some faint bruising on the abdominal wall and both sites no gross swelling that I could see. Tenderness seems to be even with light tactile palpation and percussion. Bilateral BKA Impression and plan Right-sided abdominal pain Still not clear etiology to seems to be more abdominal wall related than peritonitis. He claims that all of this is new and he does not have any chronic abdominal pain. Some evidence of pancreatic calcification which may point to chronic pancreatitis but his pain pattern is nor near the epigastric area, not really at the midline. He had a new CT of the chest was done early this morning. He has a small amount of pneumoperitoneum on that CT which was from the pericardiostomy last Monday. This is actually improved from the CT of the chest last Monday. He has a history of an upper GI bleed in April so possibly duodenal ulcer though the pain pattern is certainly not typical of duodenal ulcer. I performed an ultrasound-guided transverses abdominis pain block using a combination of 1/4% Marcaine and 1% lidocaine for diagnostic purposes. I was actually able to block at the level of the umbilicus. He had relief of his discomfort. He still has some discomfort around what looks like the i liohypogastric distribution so below the level of the tap block. Plan to perform an upper GI endoscopy on Monday and if there is consistent relief of the pain lasts anesthesia to do another tap block this time using Exparel for longer pain relief. If this is abdominal wall related most likely re lated to straining versus extension of nerve involvement from the back. VS,Fishbone, I+O VS, Fishbone, I+O Laboratory Tests 07/27/20 05:55 Vital Signs Date Time Temp Pulse Resp B/P (MAP) Pulse Ox O2 Delivery O2 Flow Rate FiO2 07/27/20 11:00 66 132/62 (85) 96 Nasal Cannula 2.0 07/27/20 08:00 97.9 18 07/24/20 11:15 100 I&O- Last 24 Hours up to 6 AM 07/27/20 05:59 Intake Total 440 ml Output Total 275 ml Balance 165 ml MILA CROFT MD Jul 27, 2020 11:24
--- NOTE | 2020-07-27 11:33 | ROOPDOC ---
[facility] Report Of Operation Report of Operation DATE OF PROCEDURE: 07/27/20 PREPROCEDURE DIAGNOSES: Right-sided abdominal wall pain. POSTPROCEDURE DIAGNOSES: Right-sided abdominal pain. PROCEDURE: Ultrasound guided transversus abdominis plane block using 1% lidocaine and 1/4% Marcaine. SURGEON: Kin Alba MD HOTEL CONTROLLER: ANESTHESIA: 1/4% Marcaine, 1% lidocaine. ESTIMATED BLOOD LOSS: Approximately 2 mL. COMPLICATIONS: none REMARKS: Patient reports relief of discomfort at the level of the umbilicus but less so below this area. PROCEDURE NOTE: Patient is admitted for her cardiovascular infusion HAS been noted to be nauseated and having right-sided abdominal pain though not showing signs of generalized peritonitis nor severe inflammatory response associated with the pain. Imaging does not elucidate the cause of the pain. DESCRIPTION OF PROCEDURE: Patient remained in the room. He was positioned slightly left tilt to expose the right side of the abdominal wall. I used the SonoSite ultrasound to visualize the layers of the abdominal wall. The area was prepped with chlorhexidine. A sterile drape placed on the ultrasound probe. I used a Stimuplex needle connected to a syringe with a mixture of 1% lidocaine and 1/4% Marcaine totaling 40 mLs. Using the ultrasound, the needle was advanced in between the internal oblique and transversus abdominis muscle. A 2 mL test dose was placed to make sure we are in the adequate space. After locating the right space of the whole of the mixture was infiltrated. After doing the block, the abdomen was examined. He has good relief of the discomfort along the level of the umbilicus and above it but below the level of the umbilicus at about the level of the iliohypogastric nerve distribution patient continues to have discomfort Patient tolerated procedure well.. KIN ALBA MD Jul 27, 2020 11:33
--- NOTE | 2020-07-27 13:09 | ECHO ---
DATE OF PROCEDURE: 07/25/2020 Age: 69 Gender: Male Height: 120 cm Weight: 73 kg REFERRING PHYSICIAN: Felipe Palomo M.D. INDICATION: Pericardial effusion. MEASUREMENTS: IVS 1.4 cm LV 4.2 cm LVPW 1.5 cm LA 4.1 cm Aorta 4.3 cm Mitral E wave velocity 104 Mitral A wave 54 E prime septal 4.7 E prime lateral 5.8 FINDINGS: This study is of good technical quality. The patient is in sinus rhythm. Left ventricle is normal size. There is moderate left ventricular hypertrophy and overall preserved LV systolic function with estimated LVEF 60% to 65%. I do not appreciate any segmental wall motion abnormality. The right-sided heart chambers were poorly visualized, but both appear grossly normal. Left atrium also appears normal size or possibly minimally enlarged. The aortic, mitral, and pulmonic valves appear normal. Tricuspid valve was poorly visualized. No pericardial effusion is present. Inferior vena cava was not seen. The aortic root is mildly dilated at 4.3 cm. The aortic arch and abdominal aorta were not visualized. Doppler interrogation reveals competent aortic, mitral, and pulmonic valves. Evaluation of tricuspid valve was limited. Mitral inflow pattern and tissue Doppler imaging of the mitral annulus revealed grade 2 diastolic dysfunction indicative of elevated left ventricle end- diastolic pressure. CONCLUSIONS: 1. Study is of acceptable technical quality, but for absence of subcostal views. The patient is in sinus rhythm. 2. Normal LV size with moderate LVH and preserved LV systolic function. Grade 2 diastolic dysfunction. 3. No significant valvular disease. 4. No pericardial effusion. 5. Left pleural effusion. 6. Unable to estimate central venous pressure and pulmonary artery pressure. 7. Dilated aortic root (4.3 cm). MTDD
[2020-07-27] MEDS ORDERED: DARBEPOETIN 100 MCG/0.5 ML *DIALYSIS* SYRINGE (J0882) IV SCH ×2 (15:05→15:15)
[2020-07-27] MEDS: ONDANSETRON 4MG/2ML VIAL IV PRN (17:17)
[2020-07-27] MEDS: ERTAPENEM SODIUM 0.5 GM in NS 50 ML IV SCH (17:17)
[2020-07-27] MEDS: oxyCODONE 5MG TAB PO PRN (17:28)
--- NOTE | 2020-07-27 17:33 | IPNPDOC ---
Subjective Date Seen The patient was seen on 07/27/20. Subjective Chief Complaint/HPI Mr Andrade is a 69-year-old male with end-stage renal disease on dialysis MWF and diabetes mellitus who was transferred here from [facility] who presents with dyspnea and chest tightness and found to have pericardial effusion, pleural effusion, and acute anemia. He went to the OR on 07/24/2020 for chest tube and pericardial tube. Pericardial tube removed on 07/26/2020. He was seen in bed this morning. He still has abdominal pain. General surgery following and is aware of the pneumoperitoneum. Planning for EGD on Monday. Otherwise, patient has dialysis today. Objective Physical Examination General Exam: Positive: Alert, Cooperative Eye Exam: Positive: EOMI; Negative: Sclera icteric ENT Exam: Positive: Atraumatic Neck Exam: Positive: Supple Chest Exam: Positive: Diminished Heart Exam: Positive: Rate Normal, Regular Rhythm Abdomen Exam: Positive: Normal bowel sounds, Soft, Tenderness (extremely tender on the right side) Neuro Exam: Positive: Normal Speech, Cranial Nerves 3-12 NL Psych Exam: Positive: Mental status NL, Oriented x 3 Assessment /Plan Assessment Mr Andrade is a 69-year-old male with end-stage renal disease on dialysis MWF and diabetes mellitus who was transferred here from [facility] who presents with dyspnea and chest tightness and found to have pericardial effusion, pleural effusion, and acute anemia. He is on Eliquis for history of PE. Dr. Palomo was consulted for the pericardial effusion and pleural effusion. Patient went to the OR on 07/24/2020 and had a pericardial window placed and chest tube placed. The pericardial tube was removed 07/26/2020. Otherwise, consulted general surgery about right lower abdominal pain and tenderness. Unclear etiology. With his coughing and retching, he may have strained his abdominal wall. He does have ecchymosis along rectal sheath. Imaging did not demonstrate any large collection of fluid, but he may have a small bleed into rectal sheath as he is on blood thinner. Will add on lidocaine patch to see if it would help with the pain. General surgery saw patient again on 07/27/2020. Aware of pneumoperitoneum and plan for EGD on Monday. Otherwise, general surgery performed a nerve block and was successful in providing relief. On Monday, anesthesia may be able to do another block as well. Nephrology also following. Continue with dialysis for ESRD. Plan/VTE VTE Prophylaxis Ordered?: Yes Plan 1. Bilateral pleural effusion Dr. Palomo consulted, recommendations appreciated Went to the OR on 07/24/2020 for chest tube -Continue dialysis 2. Pericardial effusion Dr. Palomo consulted, recommendations appreciated Echocardiogram demonstrates large pericardial effusion measuring 2.8 cm anteriorly, 2 cm inferiorly, and 0.8 cm laterally -Continue dialysis Went to the OR on 07/24/2020 for pericardial window. Pericardia tube removed on 07/26/2020 3. Severe right abdominal pain and tenderness CT abdomen and pelvis on admission does not demonstrate hemoperitoneum Consulted general surgery, Dr. Alba -Unclear etiology -Maybe small bleed into rectal sheath since there is ecchymosis -Maybe strain abdominal wall muscle -Added lidocaine patch to help with the pain -Dr. Alba did nerve block which did help 4. Pneumoperitoneum -CT chest after placement of pericardial catheter did demonstrate p neumoperitoneum, thought to be secondary to procedure -General surgery following. Planning for EGD on Monday 5. End-stage renal disease on dialysis Normally receives dialysis [facility] Nephrology following recommendations appreciated -May need frequent dialysis to help with the effusions 6. Acute on chronic anemia Received 2 units of packed RBCs at [facility] on 07/21/2020 -A total of 2 units have been given here Trend CBC Hold Eliquis 7. History of pulmonary embolism Hold Eliquis 8. Hypothyroidism Continue levothyroxine 9. Seizure disorder Continue Keppra 10. 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 DVT prophylaxis SCDs and teds Disposition: General surgery planning for EGD on Monday VS, I&O, 24H, Fishbone Vital Signs/I&O Vital Signs Date Time Temp Pulse Resp B/P (MAP) Pulse Ox O2 Delivery O2 Flow Rate FiO2 07/27/20 11:00 66 132/62 (85) 96 Nasal Cannula 2.0 07/27/20 09:00 18 07/27/20 08:00 97.9 07/24/20 11:15 100 I&O- Last 24 Hours up to 6 AM0 07/27/20 06:00 Intake Total 440 ml Output Total 370 ml Balance 70 ml Laboratory Data 24H LABS Laboratory Tests 2 07/26/20 20:35: Bedside Glucose (Misc Panel) 152H 07/27/20 05:55: Immature Granulocyte % (Auto) 0.5, Neutrophils (%) (Auto) 70.1H, Lymphocytes (%) (Auto) 17.2L, Monocytes (%) (Auto) 10.1H, Eosinophils (%) (Auto) 1.9, Basophils (%) (Auto) 0.2, Neutrophils # (Auto) 4.0, Lymphocytes # (Auto) 1.0L, Monocytes # (Auto) 0.6, Eosinophils # (Auto) 0.1, Basophils # (Auto) 0.0, Nucleated Red Bloo d Cells % (auto) 0.0, Anion Gap 9, Glomerular Filtration Rate 17.5L, Calcium Level 6.0#L 07/27/20 12:15: Bedside Glucose (Misc Panel) 198H 07/27/20 16:59: Bedside Glucose (Misc Panel) 145H CBC/BMP Laboratory Tests 07/27/20 05:55 Microbiology Microbiology 07/24/20 Acid Fast Stain, Received Pending 07/24/20 Mycobacterial Culture, Received Pending 07/24/20 Fungal Smear, Received Pending 07/24/20 Fungal Culture, Received Pending 07/24/20 Gram Stain - Final, Complete 07/24/20 Body Fluid Culture - Final, Complete 07/24/20 Anaerobic Culture - Final, Complete 07/23/20 Blood Culture - Preliminary, Resulted No Growth after 72 hours. All specime... ROOPA AMBROSIO 15, 2021 17:33
[2020-07-27] MEDS: ATORVASTATIN 20 MG TAB PO SCH (21:00)
[2020-07-27] MEDS: traZODone 50 MG TAB PO SCH (21:00)
[2020-07-27] MEDS: DONEPEZIL 5 MG TAB PO SCH (21:00)
[2020-07-27] MEDS: **NOTE PATIENT COMMENT** MISC XX SCH (21:41)
--- NOTE | 2020-07-27 23:40 | IPN ---
NEPHROLOGY PROGRESS NOTE DATE: 07/27/2020 SUBJECTIVE: Patient was seen and examined today morning at the bedside in the ICU. Patient constantly complains of pain in the right lower quadrant of the abdomen. Today is patient's regular day of dialysis. He still has a right-sided chest tube. OBJECTIVE: VITAL SIGNS: Temperature 97.9 degrees Fahrenheit, blood pressure 160/72, pulse 63, respiratory rate 20, sating 97% on nasal cannula at 2 liters. INTAKE/OUTPUT: There is no urine output recorded. Right-sided chest tube drainage is 285 mL so far. Weight in the bed scale is 76.6 kg. PHYSICAL EXAMINATION: GENERAL: Patient is awake, alert and oriented x3, lying in bed, in moderate painful distress. HEAD AND NECK: Extraocular muscles intact. Pupils equally round and reactive to light. Mucous membranes are moist. Neck is supple. No significant JVD. RESPIRATORY: Chest is clear to auscultation bilaterally. Bilateral equal air entry. No rales or rhonchi. CARDIOVASCULAR: S1, S2, regular rate. No edema of the bilateral lower extremities. ABDOMEN: Tender to mild palpation in the right lower quadrant, healing midline abdominal surgical scar. GENITOURINARY: Bladder is not palpable. MUSCULOSKELETAL: Bilateral below knee amputation sites were noted. CLINICAL TRAINER: No focal deficit. Power is 5/5 in bilateral upper extremities. LAB REVIEW: CBC showed WBC 5.8, hemoglobin 8.5, platelets 201,000. BMP showed sodium 143, potassium 3.9, chloride 112, bicarb 22, BUN 39, creatinine 3.7. IMAGING: A CT of the chest was done today, it showed pericardial catheter has been removed, pericardial effusion has decreased. Intraperitoneal air has significantly decreased. There is a right thoracotomy tube. Right pleural effusion is decreased in size, moderate sized left-sided pleural effusion is not significantly changed. CURRENT INPATIENT MEDICATIONS: Patient's medications were all reviewed by myself. Patient continues to be on Aranesp 200 mcg with hemodialysis. He continues to be on I.V. Ertapenem. No other significant change in the medications today as compared with last time. ASSESSMENT AND PLAN: 1. End-stage renal disease: Patient will be dialyzed today. Ultrafiltration goal will be around 1.5 to 2 liters as tolerated by blood pressure. 2. Pleural and pericardial effusions; status post removal of the pericardial drain: CT scan of the chest shows significant improvement in the right-sided pleural effusion. 3. Persistent right lower quadrant abdominal pain: Surgical service is on board. 4. Anemia and end-stage renal disease: Patient is status post 2 units of blood. He is also on Aranesp. Hemoglobin level is stable. If it stays low, he will be given 1 more unit of PRBC transfusion.
[2020-07-28] VITALS (40 sets, daily range): BP systolic 85–192; BP diastolic 47–80
[2020-07-28] MEDS: traZODone 50 MG TAB PO SCH (00:07)
[2020-07-28] MEDS: oxyCODONE 5MG TAB PO PRN (00:08)
[2020-07-28] MEDS: DOCUSATE SODIUM 100MG CAPSULE PO SCH ×3 (00:14→21:27)
[2020-07-28] MEDS: CARVedilol 6.25 MG TAB PO SCH ×3 (00:14→21:26)
[2020-07-28] MEDS: DONEPEZIL 5 MG TAB PO SCH ×2 (00:14→21:28)
[2020-07-28] MEDS: ATORVASTATIN 20 MG TAB PO SCH ×2 (00:15→21:28)
[2020-07-28] MEDS: levETIRAcetam 250MG TABLET (KEPPRA) PO SCH ×3 (00:15→21:27)
[2020-07-28] MEDS: LEVALBUTEROL HFA 45MCG/ACT 15 GM INHALER INH SCH ×4 (01:09→19:52)
[2020-07-28 05:14] LABS: BASO % 0.4 % (0.0-1.0); EOS # 0.1 10^3/uL (0.0-0.5); EOS % 2.8 % (0.0-3.0); HEMATOCRIT 28.1 % (42.0-52.0); HEMOGLOBIN 8.5 g/dl (13.5-17.5); LYMPH # 0.9 10^3/uL (1.5-5.0); LYMPH % 17.7 % (24.0-44.0); MEAN CORPUSCULAR HEMOGLOBIN 28.2 pg (27.0-33.0); MEAN CORPUSCULAR HGB CONC 30.2 g/dl (32.0-36.5); MEAN CORPUSCULAR VOLUME 93.4 fl (80.0-96.0); MONO # 0.6 10^3/uL (0.0-0.8); MONO % 11.6 % (2.0-8.0); NEUTROPHILS # 3.4 10^3/uL (1.5-8.5); NEUTROPHILS % 67.1 % (36.0-66.0); PLATELET COUNT, AUTOMATED 189 10^3/uL (150-450); RED BLOOD COUNT 3.01 10^6/uL (4.30-6.10); WHITE BLOOD COUNT 5.1 10^3/uL (4.0-10.0)
[2020-07-28 05:36] LABS: CALCIUM LEVEL 7.3 MG/DL (8.8-10.2); CREATININE FOR GFR 3.28 MG/DL (0.70-1.30); GLOMERULAR FILTRATION RATE 20.1 (>49); POTASSIUM SERUM 4.2 MEQ/L (3.5-5.1)
[2020-07-28] MEDS: SODIUM CHLORIDE 0.9% INJ 10 ML SYR IV SCH ×2 (06:16→17:26)
[2020-07-28] MEDS: LEVOTHYROXINE 25MCG TABLET (0.025MG) PO SCH (06:16)
[2020-07-28] MEDS: ACETAMINOPHEN TAB 650MG DOSE (2X325MG) PO PRN ×2 (06:24→21:39)
[2020-07-28] MEDS: ONDANSETRON 4MG/2ML VIAL IV PRN (06:24)
--- NOTE | 2020-07-28 07:21 | IPNPDOC ---
Date Seen The patient was seen on 07/28/20. Progress Note HOSPITALIST PROGRESS NOTE DICTATED If note is needed urgently, pls have equal employment opportunity officer call hypertype to stat transcribe progress note by Dr. Finley 07/28/20 job # [id number] VS, I&O, 24H, Fishbone Vital Signs/I&O Vital Signs Date Time Temp Pulse Resp B/P (MAP) Pulse Ox O2 Delivery O2 Flow Rate FiO2 07/28/20 06:00 67 22 125/58 97 Nasal Cannula 2.0 07/28/20 04:00 97.5 07/24/20 11:15 100 I&O- Last 24 Hours up to 6 AM 07/28/20 05:59 Intake Total 760 ml Output Total 2435 ml Balance -1675 ml Laboratory Data 24H LABS Laboratory Tests 2 07/27/20 12:15: Bedside Glucose (Misc Panel) 198H 07/27/20 16:59: Bedside Glucose (Misc Panel) 145H 07/27/20 21:27: Bedside Glucose (Misc Panel) 187H 07/28/20 05:04: Immature Granulocyte % (Auto) 0.4, Neutrophils (%) (Auto) 67.1H, Lymphocytes (%) (Auto) 17.7L, Monocytes (%) (Auto) 11.6H, Eosinophils (%) (Auto) 2.8, Basophils (%) (Auto) 0.4, Neutrophils # (Auto) 3.4, Lymphocytes # (Auto) 0.9L, Monocytes # (Auto) 0.6, Eosinophils # (Auto) 0.1, Basophils # (Auto) 0.0, Nucleated Red Blood Cells % (auto) 0.0, Anion Gap 6L, Glomerular Filtration Rate 20.1L, Calcium Level 7.3#L CBC/BMP Laboratory Tests 07/28/20 05:04 Microbiology Microbiology 07/24/20 Acid Fast Stain, Received Pending 07/24/20 Mycobacterial Culture, Received Pending 07/24/20 Fungal Smear, Received Pending 07/24/20 Fungal Culture, Received Pending 07/24/20 Gram Stain - Final, Complete 07/24/20 Body Fluid Culture - Final, Complete 07/24/20 Anaerobic Culture - Final, Complete 07/23/20 Blood Culture - Preliminary, Resulted No Growth after 72 hours. All specime... JEFF FINLEY MD Jul 28, 2020 07:20
[2020-07-28] MEDS: HumaLOG INSULIN (NovoLOG) PER UNIT SC SCH ×4 (07:30→20:43)
--- NOTE | 2020-07-28 08:12 | REP ---
INDICATION: pericardial effusion. COMPARISON: Portable chest dated 07/27/2020 at 6:56. TECHNIQUE: Portable AP view of the chest with the patient semi. FINDINGS: There is diffuse increased density throughout the left hemithorax, unchanged, compatible pleural effusion a and/or airspace disease. There is widening of the left pleural stripe compatible with pleural effusion, also unchanged. The right thoracotomy tube is unchanged. Left subclavian central venous catheter is unchanged. Cardiac size is enlarged, unchanged. IMPRESSION: There is no significant interval change. <Electronically signed by Mario Nazario > 07/28/20 0808
--- NOTE | 2020-07-28 08:26 | IPNPDOC ---
Text Note Date of Service The patient was seen on 07/28/20. NOTE Patient reports a mildly better but still there. She reports vomiting though was not able to confirm this with his nurse. Not recorded in EMR. Reports poor appetite. VS reviewed afebrile On exam Looks comfortable when I entered the room doesn't seem to be grimacing as much a nymore though still reports the same amount/intensity of abdominal pain Abdomen is nondistended, hypoactive bowel sounds. Tenderness to palpation over the right side of the abdomen most prominent on the lower abdomen even with light tactile palpation not present on the left side or epigastric area Impression and plan Abdominal pain unclear etiology I suspect abdominal wall related given degree a nd intensity. Initial relief from the transversus abdominis plane block no longer present. Plan to do an EGD tomorrow. Would ask anesthesia to do a tap block with Exparel. VS,Stuart, I+O VS, Stuart, I+O Laboratory Tests 07/28/20 05:04 Vital Signs Date Time Temp Pulse Resp B/P (MAP) Pulse Ox O2 Delivery O2 Flow Rate FiO2 07/28/20 08:00 96.7 66 18 138/62 (87) 97 Nasal Cannula 2.0 07/24/20 11:15 100 I&O- Last 24 Hours up to 6 AM 07/28/20 06:00 Intake Total 800 ml Output Total 2360 ml Balance -1560 ml MILA CROFT MD Jul 28, 2020 08:26
[2020-07-28] MEDS: SERTRALINE HCL 50 MG TAB PO SCH (08:57)
[2020-07-28] MEDS: TAMSULOSIN 0.4 MG CAP PO SCH (08:57)
[2020-07-28] MEDS: OLANZapine 5 MG TAB PO SCH ×2 (08:57→21:28)
[2020-07-28] MEDS: NEPHRO-VIT TAB (NEPHROCAPS) PO SCH (08:57)
[2020-07-28] MEDS: oxyCODONE 5MG TAB PO SCH ×2 (08:58→21:00)
[2020-07-28] MEDS: LIDOCAINE 5% (LIDODERM) PATCH TD SCH (08:58)
[2020-07-28] MEDS: PANTOPRAZOLE 40MG TAB (PROTONIX) PO SCH (08:58)
[2020-07-28] MEDS: MIRALAX *UNIT DOSE* 17GM PACKET PO SCH (09:00)
[2020-07-28] MEDS: MOM 30ML SUSPENSION UDC PO SCH (09:00)
--- NOTE | 2020-07-28 09:43 | IPN ---
PROGRESS NOTE DATE: 07/28/2020 SUBJECTIVE: The patient is seen and examined at the bedside. Chart has been reviewed. Patient complains of fatigue this morning and pleuritic chest pain when he takes a deep breath. No fever or chills overnight. No other issues per nursing. OBJECTIVE: VITAL SIGNS: Temperature is 97.5, pulse is 67 and regular, sinus rhythm respiratory rate 18 to 22. Blood pressure 100/59 to 149/65, pulse oximetry 97% 2 liters nasal cannula. GENERAL: The patient is awake, alert and oriented x3, answering questions appropriately, slight pallor, no icterus or jaundice. Patient has no respiratory distress. He is able to answer questions appropriately. He has no use of accessory respiratory muscles. He currently has 2 liters nasal cannula. HEAD AND NECK: No JVD. No thyromegaly. No cervical lymphadenopathy. Moist mucous membranes. LUNGS: Clear to auscultation. No wheezes, rales or rhonchi. Air entry is equal bilaterally. No accessory respiratory muscle use. HEART: S1 and S2, sinus rhythm. No murmurs, rubs or gallops. EXTREMITIES: No cyanosis, clubbing or pitting edema. ABDOMEN: Soft, slightly tender in the right lower quadrant with midline abdominal surgical scar. Bladder is not distended. EXTREMITIES: Bilateral BKA. LABORATORY DATA: White count 5.1, hemoglobin is 8.5, previous hemoglobin 8.5, hematocrit 28.1, previous hematocrit 27.8, platelet count of 189,000, sodium of 140, potassium 4.2, chloride 104, bicarbonate 30, BUN 30, creatinine 3.28, previous creatinine 3.71, glucose of 148. Pericardial fluid, acid fast and mycobacterium and fungal are all pending. Pericardial fluid: No growth aerobically, no growth anaerobically. Chest CT on 07/27/2020: Previous pericardial catheter has been removed, volume of iatrogenic intraperitoneal air has significantly decreased, volume of pericardial fluid has decreased. Right thoracotomy tube. Right pleural effusion has decreased in size, almost entirely resolved. There is a small volume of atelectasis of superior segment of right lower lobe, posterior in the right upper lobe. Moderate left sided pleural effusion not changed. Patient supine on scanning table with pleural effusion tracking posteriorly into the pleural space to the apex of the left hemithorax. Cardiac size is enlarged. This is unchanged. Left upper extremity PICC line with tip in the superior vena cava, no pneumothorax. No pneumomediastinum. ASSESSMENT AND PLAN: This is a 69-year-old with bilateral BKA, endstage renal disease on dialysis admitted on 07/23/2020 with complaint of shortness of breath and abdominal pain, was transferred from [facility] where he was found to be anemic with a hemoglobin of 6.7, given 2 units of RBC transfusion, CT of abdomen and pelvis showed a pericardial effusion, bilateral pleural effusions. Patient was transferred to [facility] for further management. An echocardiogram on 07/25/20 showed no pericardial effusion. CURRENT ISSUES: 1. Pericardial effusion, large effusion found 2.8 cm anteriorly x 2 cm inferiorly, 0.8 laterally. Went to the OR on 07/24 for a pericardial window with pericardial tube removed on 07/26/2020. Repeat echo showed resolution of pericardial effusion. 2. Pneumoperitoneum status post pericardial catheter felt to be secondary to the procedure. EGD planned for Monday by General Surgery. 3. Persistent right sided abdominal pain and tenderness, unclear etiology, possible rectal sheath bleed due to some ecchymosis or strain from abdominal wall muscle, currently with Lidocaine Patch for pain control status post nerve block. 4. Endstage renal disease on maintenance dialysis on Monday, Monday and Monday per Nephrology. 5. Anemia of chronic disease status post 2 units of RBC transfusion, holding patient's Eliquis. History of pulmonary embolism. Eliquis has been held due to severe anemia and recent pericardial window. 6. History of seizure disorder on chronic Keppra. 7. Hypothyroidism on Synthroid. 8. Acute delirium. Avoid sedative and hypnotics. 9. DVT prophylaxis with SCDs and ASHOK stockings. 10.Disposition: Awaiting EGD on Monday. MTDD
--- NOTE | 2020-07-28 09:55 | IPN ---
PROGRESS NOTE DATE: 07/27/2020 SUBJECTIVE: Mr. Andrade has a little bit less abdominal pain today. He underwent a transversus abdominis block by Dr. Alba today. He still, however, is tender in the right lower quadrant. He does not perceive any difficulty breathing although he is just laying sessile in bed. He is undergoing dialysis at the time of my examination. His vital signs show a T-max of 99.1 with a heart rate that ranged between 63 and 71 in sinus rhythm. Respiratory rate 16 to 18 without the use of accessory muscles. He is 98-99% saturated on 2 liters nasal cannula. His blood pressure is ranging between 165/70 to 132/62. His intake and output for the past 24 hours has been recorded as 440 in and 275 out for a positivity of 165 mL. He is undergoing dialysis now with a goal of removing between 1 and 2 liters. He has put out 275 mL from his right pleural chest tube. OBJECTIVE: His lungs show decreased breath sounds on the left side. Right side shows normal vesicular sounds as far as I can tell with him being supine. Cardiac exam today does show a pericardial friction rub. I cannot feel his PMI. S1, S2 are normal. There are no murmurs. Abdomen shows slight tenderness in the right upper quadrant and more acute tenderness in the right lower quadrant. Left side is nontender and his bowel sounds are positive. His thighs show 1+ edema. There is no differential swelling of the upper extremities. Skin is warm and dry and perfused without cyanosis or mottling including that of nailbeds and knees. Neck is supple. There is no jugular venous distention, no subcutaneous emphysema. Trachea is midline. Mouth shows the mucous membranes to be pink and moist. Lips and gums show no lesions, no thrush. Eyes show the pupils to be equal and reactive. Extraocular movements are intact. Sclerae are nonicteric. Neuro shows II-XII intact with normal gross motor, gross sensation intact. Gait is not tested. Psychiatric shows him to be a bit somnolent but arousable and can answer questions. His white count today is 5.8 with a hemoglobin and hematocrit of 8.5 and 27.8 respectively. Platelet count is 201. Differential shows 70% neutrophils, 17% lymphocytes, 10% monocytes. There were no immature forms or toxic granulations. His electrolytes are normal with a BUN and creatinine of 39 and 17.71 prior to his dialysis today. Glucose is 110 with a calcium of 6.0. His chest x-ray today shows a diffuse haze over the left side. This is done portably. The cardiac silhouette is still fairly enlarged. He is rotated, however. I did obtain a chest CT of him today to investigate the diffuse haze which I suspect was going to be accumulated fluid. CT confirms that he has a large pleural effusion. The pericardial effusion is all but gone with a little bit of pericardial thickening. There was compression in the left lower lobe secondary to the pleural effusion. ASSESSMENT: 1. Pericardial effusion, resolved with pericardial window and two pericardiostomies. 2. Renal failure requiring dialysis. 3. Hypertension. 4. Abdominal pain, slightly better his transversus block. 5. Peripheral vascular disease status post bilateral below knee amputations. 6. Diabetes. 7. Pulmonary embolism, formerly on Eliquis, now discontinued. 8. Hemorrhagic pericarditis secondary to Eliquis. 9. New left pleural effusion. PLAN/DISCUSSION: I am hoping that continued dialysis will address the pleural effusion on the left side. He may need to come to a chest tube. I have spoken with the dialysis nurse and have asked her to take off 2 liters of fluid rather than the planned 1.5 liters. He has plenty of blood pressure to do so.
[2020-07-28] MEDS ORDERED: NALOXONE INJ 0.4MG/1ML VIAL (J2310 PER 1MG) IV STA (12:00)
--- NOTE | 2020-07-28 12:03 | IPNPDOC ---
Date Seen The patient was seen on 07/28/20. Progress Note RN called re: somnolent s/p pain meds. A/P: Opioid-induced acute encephalopathy/delirium -holding parameters for ams, rr<12 for pain meds -narcan x 1 -check abg to rule out respiratory acidosis -check ammonia level -dc trazodone qhs. VS, I&O, 24H, Fishbone Vital Signs/I&O Vital Signs Date Time Temp Pulse Resp B/P (MAP) Pulse Ox O2 Delivery O2 Flow Rate FiO2 07/28/20 09:28 18 Nasal Cannula 2.0 07/28/20 08:59 64 138/62 07/28/20 08:00 96.7 97 07/24/20 11:15 100 I&O- Last 24 Hours up to 6 AM 07/28/20 06:00 Intake Total 800 ml Output Total 2360 ml Balance -1560 ml Laboratory Data 24H LABS Laboratory Tests 2 07/27/20 12:15: Bedside Glucose (Misc Panel) 198H 07/27/20 16:59: Bedside Glucose (Misc Panel) 145H 07/27/20 21:27: Bedside Glucose (Misc Panel) 187H 07/28/20 05:04: Immature Granulocyte % (Auto) 0.4, Neutrophils (%) (Auto) 67.1H, Lymphocytes (%) (Auto) 17.7L, Monocytes (%) (Auto) 11.6H, Eosinophils (%) (Auto) 2.8, Basophils (%) (Auto) 0.4, Neutrophils # (Auto) 3.4, Lymphocytes # (Auto) 0.9L, Monocytes # (Auto) 0.6, Eosinophils # (Auto) 0.1, Basophils # (Auto) 0.0, Nucleated Red Blood Cells % (auto) 0.0, Anion Gap 6L, Glomerular Filtration Rate 20.1L, Calcium Level 7.3#L 07/28/20 11:24: Bedside Glucose (Misc Panel) 135H CBC/BMP Laboratory Tests 07/28/20 05:04 Microbiology Microbiology 07/24/20 Acid Fast Stain, Received Pending 07/24/20 Mycobacterial Culture, Received Pending 07/24/20 Fungal Smear, Received Pending 07/24/20 Fungal Culture, Received Pending 07/24/20 Gram Stain - Final, Complete 07/24/20 Body Fluid Culture - Final, Complete 07/24/20 Anaerobic Culture - Final, Complete 07/23/20 Blood Culture - Preliminary, Resulted No Growth after 72 hours. All specime... JEFF RENTERIA MD Jul 28, 2020 12:03
[2020-07-28] MEDS ORDERED: NALOXONE INJ 0.4MG/1ML VIAL (J2310 PER 1MG) IV PRN (12:10)
[2020-07-28 12:22] LABS: ABG BASE EXCESS 0.3 (-2.0-2.0); ABG O2 SATURATION 97.3 % (95.0-99.0); ABG PARTIAL PRESSURE CO2 54.4 mmHg (35.0-45.0); ABG PARTIAL PRESSURE O2 102.5 mmHg (75.0-100.0); ABG STANDARD HCO3 24.8 MEQ/L (22.0-26.0); ABG TOTAL CO2 28.6 MEQ/L (23.0-31.0); ABG pH (ARTERIAL) 7.313 UNITS (7.350-7.450)
[2020-07-28] MEDS ORDERED: flumazeniL 0.5 MG/5 ML VIAL As Ordered ONE (12:26)
[2020-07-28] MEDS ORDERED: LIDOCAINE 1% MDV 20ML VIAL As Ordered ONE (12:26)
[2020-07-28] MEDS ORDERED: MIDAZOLAM INJ 2MG/2ML VIAL (J2250 PER 1MG) As Ordered ONE (12:26)
--- NOTE | 2020-07-28 14:02 | REP ---
INDICATION: Chest tube insertion COMPARISON: 07/28/2020 TECHNIQUE: Portable AP view of the chest FINDINGS: Right-sided chest tube in stable position and the right hemithorax appears relatively clear and without obvious focal consolidation, definite effusion or pneumothorax. New left chest tube overlies the lower lung zone and the left hemithorax demonstrates improved aeration with suspected decreased layering effusion. Continued left lower lobe/retrocardiac atelectasis/partial collapse appears improved as well. Mediastinum and cardiac silhouette stable with cardiomegaly and possible continued pericardial effusion again suggested. Left-sided PICC line with tip in the SVC unchanged. Skeletal structures unchanged. IMPRESSION: 1. New left-sided chest tube with improved aeration to the left hemithorax. 2. Right hemithorax relatively stable and without new process. 3. Cardiac silhouette remains enlarged. <Electronically signed by Paolo Farmer > 07/28/20 1586
[2020-07-28] MEDS ORDERED: MIDAZOLAM INJ 2MG/2ML VIAL (J2250 PER 1MG) IV STA (14:12)
[2020-07-28] MEDS ORDERED: LIDOCAINE 1% MDV 20ML VIAL SC ONE (14:15)
--- NOTE | 2020-07-28 14:26 | RO ---
OPERATIVE NOTE DATE OF OPERATION: 07/28/2020 PREPROCEDURE DIAGNOSIS: Left pleural effusion. POSTPROCEDURE DIAGNOSIS: Left pleural effusion. PROCEDURE: Insertion of a left lateral chest tube. SURGEON: Felipe Palomo M.D. STEEL MOLDER: None. ANESTHESIA: Moderate sedation with 2 mg of Versed. FINDINGS: The chest tube eluded 1500 mL of serosanguineous fluid, more serous than sanguineous. This was sent for all the requisite studies to include chemistries, hematologies, cytologies, and bacteriologies. DESCRIPTION OF PROCEDURE: Under satisfactory moderate sedation achieved with 2 mg of Versed, the patient was prepped and draped in the usual sterile fashion. The skin, subcutaneous tissue, and pleura over the approximate 7th rib was infiltrated with 1% Lidocaine. An incision was made and a tunnel was created into the chest via the approximate 6th intercostal space. A #24 chest tube was placed without difficulty. The above findings were noted. This was secured to the chest wall with a #2 Tevdek suture and connected to the Pleur-Evac. The patient tolerated the procedure well and a chest x-ray is pending.
--- NOTE | 2020-07-28 14:32 | IPN ---
PROGRESS NOTE DATE: 07/28/2020 Mr. Andrade is complaining of increasing shortness of breath. He does not feel very well today. His vital signs show a maximum temperature of 97.5 with a heart rate that ranges between 74-58 in a sinus rhythm, respiratory rate of 16-22 without the use of accessory muscles, who is 86%-98% saturated on 3 liters nasal cannula and whose blood pressure is ranging between 192/80 to 100/49. His intake and output for the past 24 hours has been recorded as 760 in and 2350 out, for a negativity of 1600 mL. He has put out 350 mL from the right chest tube, and 2000 mL were taken off yesterday with hemodialysis. His weight today is 65 kg compared to 76.6 kg yesterday. I suspect the 65 kg is spurious. PHYSICAL EXAMINATION: I will cannot sit him up because of his abdominal pain. Nonetheless, breath sounds are markedly decreased on the left side. He has scattered rhonchi on the right side posterolaterally. Cardiac exam is without murmurs, clicks, gallops, or rubs. I cannot feel his point of maximal impulse (PMI). S1 and S2 are normal. Abdomen is soft and nontender on the left, very tender on the right. Nonetheless, there is no rebound, and he has active bowel sounds. I cannot appreciate hepatomegaly because of his underlying pain. Extremities show 1+ thigh edema. There is no differential swelling of the upper extremities. Skin is warm, dry, and perfused without cyanosis or mottling, including that of the nailbeds and knees. Neck is supple. There is no jugular venous distention. No subcutaneous emphysema. Trachea is midline. Mouth shows the mucous membranes to be pink and moist. Lips and commissures without lesions. There is no thrush. Eyes show his pupils to be equal and reactive. Extraocular motion intact. Sclerae anicteric. Neurologic shows II-XII intact. Normal gross motor, gross sensation intact. Gait is not tested. Psychiatric shows him to be somewhat somnolent but awake and answers questions. His white count is 5.1 with a hemoglobin and hematocrit of 8.5 and 28.1, respectively, unchanged from yesterday, with a platelet count of 189 and stable. Differential shows 67% neutrophils, 17% lymphocytes, 11% monocytes. There are no immature forms or toxic granulations. His chemistries today show normal electrolytes with a BUN and creatinine of 30 and 3.28, a glucose of 148, and a calcium of 7.3. His chest x-ray today shows diffuse haze on the left side, which looks to be worse than it was yesterday. This no doubt represents a pleural effusion, as noted on a CT scan yesterday additionally. IMPRESSION: 1. Pericardial effusion, resolved with pericardial window and tube pericardiostomy. 2. Renal failure requiring dialysis. 3. Hypertension. 4. Abdominal pain, slightly better after his transversus block. 5. Peripheral vascular disease, status post bilateral below-knee amputations. 6. Diabetes. 7. Pulmonary embolism, on Eliquis. That is continued. 8. Hemorrhagic pericarditis secondary to Eliquis. 9. Left pleural effusion. PLAN AND DISCUSSION: He is getting more symptomatic and short of breath, and I will therefore place a left chest tube. We will continue the right chest tube, as he has put too much out to remove it. He is continued on renal dialysis.
[2020-07-28 15:08] LABS: SOURCE, BODY FLUID pH PLEURAL
[2020-07-28 15:11] LABS: APPEARANCE, BODY FLUID TURBID (CLEAR); PLEURAL FL COLOR RED (COLORLESS); SOURCE, BODY FLUID PLEURAL
[2020-07-28 15:31] LABS: AMYLASE, BODY FLUID 19 U/L (NOT ESTABLISHED); CHOLESTEROL, BODY FLUID < 50 MG/DL (NOT ESTABLISHED); LDH, BODY FLUID 173 U/L (NOT ESTABLISHED); SOURCE, BODY FLUID ALBUMIN PLEURAL; SOURCE, BODY FLUID AMYLASE PLEURAL; SOURCE, BODY FLUID CHOL PLEURAL; SOURCE, BODY FLUID GLUCOSE PLEURAL; SOURCE, BODY FLUID LDH PLEURAL; SOURCE, BODY FLUID TOT PROTEIN PLEURAL; SOURCE, BODY FLUID TRIG PLEURAL; TOTAL PROTEIN, BODY FLUID 3.3 G/DL (NOT ESTABLISHED); TRIGLYCERIDE, BODY FLUID 35 MG/DL (NOT ESTABLISHED)
[2020-07-28] MEDS: ERTAPENEM SODIUM 0.5 GM in NS 50 ML IV SCH (16:10)
[2020-07-28] MEDS: **NOTE PATIENT COMMENT** MISC XX SCH (21:30)
[2020-07-29] VITALS (10 sets, daily range): BP systolic 96–159; BP diastolic 48–68
--- NOTE | 2020-07-29 00:01 | IPN ---
NEPHROLOGY PROGRESS NOTE DATE: 07/28/2020 SUBJECTIVE: Patient was seen and examined today morning at the bedside in the ICU. Patient was sleeping in the ICU when I saw him in the morning. He still has a chest tube on the right side. I was told by the nursing staff that patient still complained of pain in the right lower quadrant. OBJECTIVE: VITAL SIGNS: Temperature 97.3 degrees Fahrenheit, blood pressure 167/65, pulse 65, respiratory rate 18, sating 94% on nasal cannula at 3 liters. INTAKE/OUTPUT: Urine output is not recorded. Right-sided chest tube drainage is 235 mL. Weight in the bed scale is 65 kg. PHYSICAL EXAMINATION: GENERAL: Patient is lying in bed sleeping. HEAD AND NECK: Eyes are closed. Mucous membranes are moist. Neck is supple. Mildly elevated JVD. RESPIRATORY: Decreased breath sounds at the bases bilaterally. Right-sided chest tube is noted. CARDIOVASCULAR: S1, S2. 2+ edema of the bilateral lower extremities. ABDOMEN: Soft, midline healing surgical scar. Patient is sleeping, so abdomen was not deeply palpated. MUSCULOSKELETAL: Bilateral below knee amputations. DIRECTOR OF INCOME TAX: Patient is sleeping at this time. LAB REVIEW: CBC showed WBC 5.1, hemoglobin 8.5, platelets 189,000. BMP showed sodium 140, potassium 4.2, chloride 104, bicarb 30, BUN 30, creatinine 3.2. CURRENT INPATIENT MEDICATIONS: Patient's medications were all reviewed by myself. He continues to be on I.V. Ertapenem. ASSESSMENT AND PLAN: 1. End-stage renal disease: Patient was dialyzed yesterday. Next hemodialysis will be done tomorrow morning at the bedside. Ultrafiltration goal will be at least 3 to 4 kg as tolerated by his blood pressure. 2. Pleural and pericardial effusions: Patient's pericardial drainage has been removed. He still has a chest tube on the right side. Left-sided chest tube will be placed by CT surgery today. 3. Anemia and end-stage renal disease: Continue current dose of Aranesp. Transfuse p.r.n. for hemoglobin below 8.
[2020-07-29] MEDS: LEVALBUTEROL HFA 45MCG/ACT 15 GM INHALER INH SCH ×4 (02:36→19:37)
[2020-07-29] MEDS: SODIUM CHLORIDE 0.9% INJ 10 ML SYR IV SCH ×2 (05:11→20:48)
[2020-07-29] MEDS: LEVOTHYROXINE 25MCG TABLET (0.025MG) PO SCH (05:11)
[2020-07-29 05:23] LABS: BASO % 0.2 % (0.0-1.0); EOS # 0.1 10^3/uL (0.0-0.5); EOS % 1.4 % (0.0-3.0); HEMATOCRIT 30.9 % (42.0-52.0); HEMOGLOBIN 9.2 g/dl (13.5-17.5); LYMPH # 1.1 10^3/uL (1.5-5.0); LYMPH % 18.5 % (24.0-44.0); MEAN CORPUSCULAR HEMOGLOBIN 28.2 pg (27.0-33.0); MEAN CORPUSCULAR HGB CONC 29.8 g/dl (32.0-36.5); MEAN CORPUSCULAR VOLUME 94.8 fl (80.0-96.0); MONO # 0.6 10^3/uL (0.0-0.8); MONO % 10.2 % (2.0-8.0); NEUTROPHILS % 69.3 % (36.0-66.0); PLATELET COUNT, AUTOMATED 206 10^3/uL (150-450); RED BLOOD COUNT 3.26 10^6/uL (4.30-6.10); WHITE BLOOD COUNT 5.7 10^3/uL (4.0-10.0)
[2020-07-29 05:53] LABS: CALCIUM LEVEL 7.5 MG/DL (8.8-10.2); CREATININE FOR GFR 4.03 MG/DL (0.70-1.30); GLOMERULAR FILTRATION RATE 15.9 (>49); POTASSIUM SERUM 4.8 MEQ/L (3.5-5.1)
[2020-07-29] MEDS: HumaLOG INSULIN (NovoLOG) PER UNIT SC SCH ×4 (07:15→21:00)
[2020-07-29] MEDS ORDERED: LIDOCAINE 1% SDV 5ML VIAL SC PRN (07:25)
--- NOTE | 2020-07-29 07:40 | REP ---
INDICATION: pericardial effusion. COMPARISON: The [id number] TECHNIQUE: Portable AP chest, patient semi upright, two views. FINDINGS: There are bilateral thoracotomy tubes, unchanged. There is no pneumothorax. The increased density noted previously inferiorly in the left hemithorax resolved. Left lung now appears clear. Right lung is clear. Cardiac size appears enlarged, unchanged. There is a left upper extremity PICC line with the tip the superior cava in satisfactory location, unchanged. Is an artifact projected over the visible portion the left upper extremity. IMPRESSION: Lung gresham are clear. There are bilateral thoracotomy tubes, unchanged. Left upper extremity PICC line is unchanged. <Electronically signed by Mario Nazario > 07/29/20 0712
[2020-07-29] MEDS: oxyCODONE 5MG TAB PO SCH ×2 (08:34→20:48)
[2020-07-29] MEDS: MOM 30ML SUSPENSION UDC PO SCH (08:34)
--- NOTE | 2020-07-29 08:45 | IPNPDOC ---
Date Seen The patient was seen on 07/29/20. Progress Note Hospitalist progress note dictated. If urgently needed, pls call hypertype to stat transcribe progress note dictated by Dr. Finley . VS, I&O, 24H, Fishbone Vital Signs/I&O Vital Signs Date Time Temp Pulse Resp B/P (MAP) Pulse Ox O2 Delivery O2 Flow Rate FiO2 07/29/20 08:00 96.7 65 18 139/65 (89) 99 Nasal Cannula 3.0 07/24/20 11:15 100 I&O- Last 24 Hours up to 6 AM 07/29/20 06:00 Intake Total 150 ml Output Total 2190 ml Balance -2040 ml Laboratory Data 24H LABS Laboratory Tests 2 07/28/20 11:24: Bedside Glucose (Misc Panel) 135H 07/28/20 12:04: Blood Gas Bicarbonate Standard 24.8, Arterial Blood pH 7.313L, Arterial Blood Partial Pressure CO2 54.4H, Arterial Blood Partial Pressure O2 102.5H, Arterial Blood Total CO2 28.6, Arterial Blood HCO3 27.0H, Arterial Blood Base Excess 0.3, Arterial Blood Oxygen Saturation 97.3 07/28/20 12:16: Ammonia 25, Prolactin 26.9H 07/28/20 12:52: Coronavirus (COVID-19)(PCR) NEGATIVE 07/28/20 13:58: Body Fluid pH 7.500, Body Fluid pH Source PLEURAL, Body Fluid WBC (Auto) 465H, Body Fluid RBC (Auto) 230, Body Fluid Mononuclear Cells % Auto 89.0H, Fluid Polymorphonuclear Cell % Auto 11.0H, Body Fluid Glucose Source PLEURAL, Body Fluid Glucose 159, Body Fluid Protein Source PLEURAL, Body Fluid Total Protein 3.3, Body Fluid Albumin Source PLEURAL, Body Fluid Albumin 1.6, Body Fluid LDH Source PLEURAL, Body Fluid Lactate Dehydrogenase 173, Body Fluid Amylase Source PLEURAL, Body Fluid Amylase 19, Body Fluid Cholesterol < 50, Body Fluid Cholesterol Source PLEURAL, Body Fluid Triglyceride Source PLEURAL, Body Fluid Triglycerides 35, Pleural Fluid Source PLEURAL, Pleural Fluid Color RED, Pleural Fluid Appearance TURBID 07/28/20 16:51: Bedside Glucose (Misc Panel) 125H 07/28/20 20:27: Bedside Glucose (Misc Panel) 107 07/29/20 05:05: Immature Granulocyte % (Auto) 0.4, Neutrophils (%) (Auto) 69.3H, Lymphocytes (%) (Auto) 18.5L, Monocytes (%) (Auto) 10.2H, Eosinophils (%) (Auto) 1.4, Basophils (%) (Auto) 0.2, Neutrophils # (Auto) 4.0, Lymphocytes # (Auto) 1.1L, Monocytes # (Auto) 0.6, Eosinophils # (Auto) 0.1, Basophils # (Auto) 0.0, Nucleated Red Blood Cells % (auto) 0.0, Anion Gap 6L, Glomerular Filtration Rate 15.9L, Calcium Level 7.5L CBC/BMP Laboratory Tests 07/29/20 05:05 Microbiology Microbiology 07/28/20 Acid Fast Stain, Received Pending 07/28/20 Mycobacterial Culture, Received Pending 07/28/20 Fungal Smear, Received Pending 07/28/20 Fungal Culture, Received Pending 07/28/20 Gram Stain - Final, Resulted 07/28/20 Anaerobic Culture, Resulted Pending 07/28/20 Body Fluid Culture, Received Pending 07/24/20 Acid Fast Stain, Received Pending 07/24/20 Mycobacterial Culture, Received Pending 07/24/20 Fungal Smear, Received Pending 07/24/20 Fungal Culture, Received Pending 07/24/20 Gram Stain - Final, Complete 07/24/20 Body Fluid Culture - Final, Complete 07/24/20 Anaerobic Culture - Final, Complete 07/23/20 Blood Culture - Final, Complete NO GROWTH AFTER 5 DAYS JEFF FINLEY MD Jul 29, 2020 08:45
[2020-07-29] MEDS: NEPHRO-VIT TAB (NEPHROCAPS) PO SCH (09:00)
--- NOTE | 2020-07-29 11:07 | IPN ---
PROGRESS NOTE DATE: 07/29/2020 SUBJECTIVE: Patient seen and examined at bedside. Chart has been reviewed. Yesterday afternoon patient developed acute delirium with increased sedation and lethargy after receiving his pain medications. His trazodone has been discontinued. Patient was placed on Narcan as needed. This morning he complains of pain at the chest tube site, some shortness of breath, a slight cough which is non-productive. No fever or chills overnight. OBJECTIVE: Vital signs: Temperature 96.7, pulse 65, respiratory rate 18, blood pressure 139/65, 99% on 3 liters nasal cannula. General: Patient is easy to awaken. He is able to converse in full sentences. No use of respiratory accessory muscles. HEENT: No pallor, no icterus, jaundice. Neck: No JVD, no thyromegaly. No stridor. No carotid bruits. Lungs: Diminished with fine crackles bilaterally. Heart: S1 and S2, sinus rhythm. Chest: Chest tube in place. Abdomen: Soft, nontender, nondistended, positive bowel sounds. Midline scar is healing well. Extremities: No cyanosis or clubbing. Below-knee amputations. LABORATORY DATA: White count 5.7, hemoglobin 9.2, hematocrit 30, platelet count 206. Sodium 140, potassium 4.8, chloride 105, bicarb 29, BUN 36, creatinine 4.03, glucose 96. 07/28/2020 pleural fluid: Anaerobic culture, no organism seen, few WBCs. HOSPITAL MEDICATIONS: 1. Lidocaine as needed. 2. Narcan as needed. 3. Aranesp 200 mcg I.V. on dialysis days. 4. Zyprexa 5 mg twice a day. 5. Lidocaine patch. 6. Cepacol. 7. Saline heparin flush. 8. Oxycodone. 9. Colace. 10. Protonix. 11. MiraLax. 12. Zoloft. 13. Flomax. 14. Nephro-Aubree. 15. Milk of Magnesia. 16. Synthroid. 17. Insulin sliding scale. 18. Lipitor. 19. Coreg. 20. Keppra. 21. Aricept. 22. Ertapenem. 23. Xopenex. 24. Tylenol. 25. Humalog sliding scale. 26. Zofran. 27. Hypoglycemic protocol. ASSESSMENT AND PLAN: This is a 69-year-old with bilateral BKA, end-stage renal disease on dialysis admitted on 07/23/2020 with shortness of breath, abdominal pain found to have symptomatic anemia with hemoglobin 6.7 status post [address] abdomen and pelvis showed pericardial effusion, bilateral atelectasis, moderate left sided effusion. Patient was transferred to [facility] for the following issues: 1. Pericardial effusion: Large effusion 2.8 cm x 2 cm x 0.8 laterally status post pericardial window on 07/24/2020, pericardial tube removed on 07/26/2020. Repeat echo showed resolution of pericardial effusion. 2. Pneumoperitoneum status post pericardial catheter secondary to procedure: EGD planned for today by general surgery. 3. Musculoskeletal pain right sided with possible rectal sheath bleed of the abdominal muscle: On Lidoderm patch, status post nerve block with improvement. 4. Anemia of chronic disease: Status post 2 units of RBCs infusion, holding Eliquis despite history of pulmonary embolism due to severe symptomatic anemia requiring blood transfusion. 5. End-stage renal disease: On management dialysis Monday, Monday, Monday, managed by nephrology. 6. History of seizure disorder: On chronic Keppra. Keppra level ordered. 7. Acute delirium secondary to opioids: Narcan as needed. Opioids to be judiciously administered. 8. Hypothyroidism: On chronic Synthroid. 9. DVT prophylaxis: With SCD and Ramiro stockings. 10. Disposition: EGD today by general surgery. MTDD
[2020-07-29] MEDS ORDERED: BUPIVACAINE HCL 0.25% 10ML VIAL IM ONE (12:15)
[2020-07-29] MEDS ORDERED: BUPIVACAINE LIPOSOME/PF 1.3% 20ML VIAL (13.3MG/ML)(EXPAREL)(C9290 PER1MG) INFIL ONE (12:15)
[2020-07-29] MEDS ORDERED: BUPIVACAINE LIPOSOME/PF 1.3% 20ML VIAL (13.3MG/ML)(EXPAREL)(C9290 PER1MG) As Ordered ONE (12:20)
[2020-07-29] MEDS ORDERED: BUPIVACAINE HCL 0.25% 30ML VIAL As Ordered ONE (12:20)
--- NOTE | 2020-07-29 12:42 | IPN ---
PROGRESS NOTE DATE: 07/29/2020 Mr. Clancy still is complaining of abdominal pain and is feeling fairly miserable this morning. He is going for an EGD this afternoon. He states that he is breathing well. I took off nearly 1500 mL yesterday from his left chest. His vital signs show a maximum temperature of 97.1 with a heart rate that ranges between 63-68 in a sinus rhythm, respiratory rate of 11-19 without the use of accessory muscles, who is 93% saturated on 3 liters nasal cannula and whose blood pressure is ranging between 149/65 to 104/48. His intake and output for the past 24 hours has been recorded as 170 in and 2045 out, for a negativity of 1875 mL. He is taking in minimal oral intake. His left chest tube put out 1760 mL, and his right chest tube has put out 285 mL. He did not undergo dialysis yesterday. He weighs 74.9 kg today compared to 65 kg yesterday and 76.6 kg the day before. I am not sure which of the weighs are spurious. PHYSICAL EXAMINATION: I again cannot sit him up because of his intense abdominal pain. From what I can hear posterolaterally, he has equal breath sounds on either side with some scattered rhonchi. Cardiac exam shows a pericardial friction rub and some squeaks, consistent with probable air within the pericardium and some residual fluid. I do not appreciate any murmurs. Abdomen is tender on the right side but soft on the left side. He is slightly distended today, and his bowel sounds are hypoactive but present. Thigh does not show edema today. There is no differential swelling of the upper extremities. Skin is warm, dry, and perfused without cyanosis or mottling, including that of the nailbeds and knees. Neck is supple. There is no jugular venous distention. No subcutaneous emphysema. Trachea is midline. Mouth shows the mucous membranes to be pink and moist. Lips and commissures without lesions. No thrush. Eyes show his pupils to be equal and reactive. Extraocular motion intact. Sclerae anicteric. Neurologic shows II-XII intact. Normal gross motor, gross sensation intact. Gait is not tested. Psychiatric shows him to be awake, alert, and oriented times three with appropriate mood and affect and conversational. His white count today is 5.7 with a hemoglobin and hematocrit of 9.2 and 30.9, respectively. Platelet count is 206, and his differential shows 69% neutrophils, 18% lymphocytes, 10% monocytes. There are no immature forms or toxic granulations. Electrolytes are normal with a BUN and creatinine of 36 and 4.03, a glucose of 96, and a calcium of 7.5. His chest x-ray now shows his lungs fully expanded to the chest wall with two chest tubes in place. Costophrenic angles are sharp. Heart size is becoming diminished. He is slightly rotated, however. IMPRESSION: 1. Hemorrhagic pericardial effusion, resolved with pericardial window and tube pericardiostomy, resolved. 2. Renal failure, requiring dialysis. 3. Hypertension. 4. Abdominal pain, continuing. 5. Peripheral vascular disease, status post bilateral below-knee amputations. 6. Diabetes. 7. Pulmonary embolism, previously on Eliquis that is now discontinued. 8. Hemorrhagic pericarditis secondary to Eliquis. 9. Left pleural effusion, resolved with a chest tube. PLAN AND DISCUSSION: I suspect his pleural effusions are secondary to his renal insufficiency. He has good cardiac function. There was no residual pericardial effusion on the echo. I will continue his chest tubes until they decrease in volume. His major holdup right now is his abdominal pain. He is essentially confined to bed, because it hurts so much to move. General surgery is involved and trying to get to the bottom of his abdominal pain, but it is not clear exactly why he has the abdominal pain. He may eventually need a laparoscopy to elucidate if there is anything intra-abdominal to explain his pain. He does have a history of prior bowel obstructions requiring operation. He is going for an esophagogastroduodenoscopy (EGD) today to see if his pain is secondary to gastric pathology.
[2020-07-29] MEDS ORDERED: LIDOCAINE 2% 100MG/5ML SDV (FOR ANES.) As Ordered ONE (13:13)
[2020-07-29] MEDS ORDERED: propofoL 200 MG/20 ML VIAL As Ordered ONE (13:13)
[2020-07-29] MEDS ORDERED: fentaNYL 100 MCG/2 ML INJECTION (J3010) As Ordered ONE (13:14)
--- NOTE | 2020-07-29 14:09 | ROOR ---
Patient Name: Aston Andrade Procedure Date: 07/29/2020 1:14 PM Date of : 1950 Age: 69 Room: [facility] Gender: Male Note Status: Finalized Procedure: Upper GI endoscopy Indications: Abdominal pain in the right upper quadrant, Abdominal pain in the right lower quadrant Providers: Kin Alba MD Referring MD: 2. Inpatient 2. Inpatient, Kin Alba MD Requesting Provider: Medicines: Monitored Anesthesia Care Complications: No immediate complications. Procedure: Pre-Anesthesia Assessment: - Prior to the procedure, a History and Physical was performed, and patient medications and allergies were reviewed. The patient is competent. The risks and benefits of the procedure and the sedation options and risks were discussed with the patient. All questions were answered and informed consent was obtained. Patient identification and proposed procedure were verified by the physician, the nurse and the nuclear medicine medical director in the endoscopy suite. Mental Status Examination: alert and oriented. Airway Examination: normal oropharyngeal airway and neck mobility. Respiratory Examination: clear to auscultation and bilateral chest tubes on suction, no air leak. CV Examination: normal. Prophylactic Antibiotics: The patient does not require prophylactic antibiotics. Prior Anticoagulants: The patient has taken Eliquis (apixaban), last dose was 5 days prior to procedure. ASA Grade Assessment: IV - A patient with severe systemic disease that is a constant threat to life. After reviewing the risks and benefits, the patient was deemed in satisfactory condition to undergo the procedure. The anesthesia plan was to use moderate sedation / analgesia (conscious sedation). Immediately prior to administration of medications, the patient was re-assessed for adequacy to receive sedatives. The heart rate, respiratory rate, oxygen saturations, blood pressure, adequacy of pulmonary ventilation, and response to care were monitored throughout the procedure. The physical status of the patient was re-assessed after the procedure. The Endoscope was introduced through the mouth, and advanced to the second part of duodenum. The upper GI endoscopy was accomplished without difficulty. The patient tolerated the procedure well. Findings: LA Grade B (one or more mucosal breaks greater than 5 mm, not extending between the tops of two mucosal folds) esophagitis with no bleeding was found in upper and mid esophagus, skipped areas, no bleeding. Patchy mild inflammation characterized by congestion (edema) and erythema was found at the incisura and in the gastric antrum. Biopsies were taken with a cold forceps for Helicobacter pylori testing. Estimated blood loss was minimal. There is no endoscopic evidence of bleeding, inflammation or ulceration in the first portion of the duodenum and in the second portion of the duodenum. Localized nodular mucosa was found in the first portion of the duodenum. Biopsies were taken with a cold forceps for histology. Estimated blood loss was minimal. Impression: - LA Grade B chronic esophagitis. - Chronic gastritis. Biopsied. - Nodular mucosa in the first portion of the duodenum. Biopsied. Recommendation: - Admit the patient to ICU for ongoing care. - No findings to explain patients right side abdominal pain, proceeded with TAP block using exparel Procedure Code(s): --- Professional --- 59143, Esophagogastroduodenoscopy, flexible, transoral; with biopsy, single or multiple Diagnosis Code(s): --- Professional --- K20.9, Esophagitis, unspecified K29.50, Unspecified chronic gastritis without bleeding K31.89, Other diseases of stomach and duodenum R10.11, Right upper quadrant pain R10.31, Right lower quadrant pain CPT copyright 2019 [employer]. All rights reserved. The codes documented in this report are preliminary and upon medical coder review may be revised to meet current compliance requirements. Kin Alba MD Kin Alba MD 07/29/2020 2:08:43 PM Electronically signed by Kin Alba MD Number of Addenda: 0 Note Initiated On: 07/29/2020 1:14 PM Estimated Blood Loss: Estimated blood loss was minimal.
[2020-07-29] MEDS: SERTRALINE HCL 50 MG TAB PO SCH (14:34)
[2020-07-29] MEDS: CARVedilol 6.25 MG TAB PO SCH ×2 (14:34→20:47)
[2020-07-29] MEDS: OLANZapine 5 MG TAB PO SCH ×2 (14:34→20:46)
[2020-07-29] MEDS: PANTOPRAZOLE 40MG TAB (PROTONIX) PO SCH (14:34)
[2020-07-29] MEDS: DOCUSATE SODIUM 100MG CAPSULE PO SCH ×2 (14:34→20:47)
[2020-07-29] MEDS: levETIRAcetam 250MG TABLET (KEPPRA) PO SCH ×2 (14:34→20:46)
[2020-07-29] MEDS: DONEPEZIL 5 MG TAB PO SCH (14:35)
[2020-07-29] MEDS: TAMSULOSIN 0.4 MG CAP PO SCH (14:40)
[2020-07-29] MEDS: LIDOCAINE 5% (LIDODERM) PATCH TD SCH (14:41)
[2020-07-29] MEDS: ERTAPENEM SODIUM 0.5 GM in NS 50 ML IV SCH (18:27)
[2020-07-29] MEDS: ATORVASTATIN 20 MG TAB PO SCH (20:47)
[2020-07-29] MEDS: **NOTE PATIENT COMMENT** MISC XX SCH (21:16)
--- NOTE | 2020-07-29 23:02 | IPN ---
NEPHROLOGY PROGRESS NOTE DATE: 07/29/2020 SUBJECTIVE: The patient was seen and examined at the bedside today morning in the ICU. He is scheduled for dialysis today. He has bilateral chest tubes. He still complains of lower abdominal pain and decreased appetite and dry heaves. OBJECTIVE: VITAL SIGNS: Temperature is 97.4 degrees Fahrenheit, blood pressure 159/68, pulse is 63, respiratory rate of 18, saturating 99% on nasal cannula at 3 liters. INTAKE AND OUTPUT: Urine output is not recorded. Chest tube output is 570 mL. Weight in the bed scale is 74.9 kg. PHYSICAL EXAMINATION: GENERAL APPEARANCE: The patient is awake, laying in bed in mild painful distress. HEAD AND NECK: Extraocular muscles intact. Pupils are equally round and reactive to light. Mucous membranes are moist. Neck is supple. There is no jugular venous distention. CARDIOVASCULAR: S1, S2, regular rate. EXTREMITIES: 1+ edema of the lower extremities. RESPIRATORY: Mildly decreased breath sounds at the bases. Bilateral chest tubes are noted. ABDOMEN: Soft, midline surgical scar. Tenderness to mild palpation in bilateral lower quadrants. MUSCULOSKELETAL: Bilateral below the knee amputation is noted. FINISHED CLOTH EXAMINER: No focal deficits. Power is 5/5 in bilateral upper extremities. LAB REVIEW: CBC showed a WBC of 5.7, hemoglobin 9.2, platelet count 206. BMP showed sodium 140, potassium 4.8, chloride 105, bicarbonate 29, BUN 36, creatinine is 4, calcium is 7.5. IMAGING: A chest x-ray was done today which showed lung gresham are clear. Bilateral thoracotomy tubes were noted. CURRENT INPATIENT MEDICATIONS: The patient's medications were all reviewed by myself. He continues to be on Ertapenem. No significant change in the medications. ASSESSMENT AND PLAN: 1. End-stage renal disease - The patient will be dialyzed today. Ultrafiltration goal will be around 2 liters as tolerated by his blood pressure. 2. Bilateral pleural effusions - The patient has bilateral chest tubes. Volume status is being optimized with dialysis. The rest of the management is as per CT Surgery. 3. Anemia and end-stage renal disease - continue current dose of Aranesp. 4. Pain lower abdomen - The patient is going to have an EGD by Surgical Service today.
[2020-07-30] VITALS (9 sets, daily range): BP systolic 98–155; BP diastolic 48–69
[2020-07-30] MEDS: ACETAMINOPHEN TAB 650MG DOSE (2X325MG) PO PRN (01:37)
[2020-07-30] MEDS: LEVALBUTEROL HFA 45MCG/ACT 15 GM INHALER INH SCH ×4 (01:53→19:59)
[2020-07-30] MEDS: ONDANSETRON 4MG/2ML VIAL IV PRN ×2 (06:08→21:37)
[2020-07-30] MEDS: LEVOTHYROXINE 25MCG TABLET (0.025MG) PO SCH (06:08)
[2020-07-30] MEDS: SODIUM CHLORIDE 0.9% INJ 10 ML SYR IV SCH ×2 (06:09→16:34)
[2020-07-30 06:51] LABS: BASO % 0.2 % (0.0-1.0); EOS # 0.1 10^3/uL (0.0-0.5); EOS % 2.8 % (0.0-3.0); HEMATOCRIT 28.5 % (42.0-52.0); HEMOGLOBIN 8.8 g/dl (13.5-17.5); LYMPH # 1.2 10^3/uL (1.5-5.0); LYMPH % 22.9 % (24.0-44.0); MEAN CORPUSCULAR HEMOGLOBIN 28.9 pg (27.0-33.0); MEAN CORPUSCULAR HGB CONC 30.9 g/dl (32.0-36.5); MEAN CORPUSCULAR VOLUME 93.8 fl (80.0-96.0); MONO # 0.7 10^3/uL (0.0-0.8); MONO % 14.4 % (2.0-8.0); NEUTROPHILS % 59.3 % (36.0-66.0); PLATELET COUNT, AUTOMATED 189 10^3/uL (150-450); RED BLOOD COUNT 3.04 10^6/uL (4.30-6.10); WHITE BLOOD COUNT 5.1 10^3/uL (4.0-10.0)
--- NOTE | 2020-07-30 07:20 | IPNPDOC ---
Date Seen The patient was seen on 07/30/20. Progress Note Hospitalist progress note dictated If note is needed urgently, please call medical records to stat transcribe. . VS, I&O, 24H, Fishbone Vital Signs/I&O Vital Signs Date Time Temp Pulse Resp B/P (MAP) Pulse Ox O2 Delivery O2 Flow Rate FiO2 07/30/20 06:00 63 111/53 (72) 99 Nasal Cannula 1.0 07/30/20 04:00 97.1 14 07/24/20 11:15 100 I&O- Last 24 Hours up to 6 AM 07/30/20 06:00 Intake Total 890 ml Output Total 2390 ml Balance -1500 ml Laboratory Data 24H LABS Laboratory Tests 2 07/29/20 12:14: Bedside Glucose (Misc Panel) 91 07/29/20 16:49: Bedside Glucose (Misc Panel) 121H 07/29/20 20:52: Bedside Glucose (Misc Panel) 190H 07/30/20 06:30: Immature Granulocyte % (Auto) 0.4, Neutrophils (%) (Auto) 59.3, Lymphocytes (%) (Auto) 22.9L, Monocytes (%) (Auto) 14.4H, Eosinophils (%) (Auto) 2.8, Basophils (%) (Auto) 0.2, Neutrophils # (Auto) 3.0, Lymphocytes # (Auto) 1.2L, Monocytes # (Auto) 0.7, Eosinophils # (Auto) 0.1, Basophils # (Auto) 0.0, Nucleated Red Blood Cells % (auto) 0.0 CBC/BMP Laboratory Tests 07/30/20 06:30 Microbiology Microbiology 07/28/20 Acid Fast Stain, Received Pending 07/28/20 Mycobacterial Culture, Received Pending 07/28/20 Fungal Smear, Received Pending 07/28/20 Fungal Culture, Received Pending 07/28/20 Gram Stain - Final, Resulted 07/28/20 Anaerobic Culture, Resulted Pending 07/28/20 Body Fluid Culture, Received Pending 07/24/20 Acid Fast Stain, Received Pending 07/24/20 Mycobacterial Culture, Received Pending 07/24/20 Fungal Smear, Received Pending 07/24/20 Fungal Culture, Received Pending 07/24/20 Gram Stain - Final, Complete 3/12/21 Body Fluid Culture - Final, Complete 07/24/20 Anaerobic Culture - Final, Complete 07/23/20 Blood Culture - Final, Complete NO GROWTH AFTER 5 DAYS JEFF RENTERIA MD Jul 30, 2020 07:20
[2020-07-30 07:24] LABS: CALCIUM LEVEL 7.8 MG/DL (8.8-10.2); CREATININE FOR GFR 3.07 MG/DL (0.70-1.30); GLOMERULAR FILTRATION RATE 21.7 (>49); POTASSIUM SERUM 3.9 MEQ/L (3.5-5.1)
[2020-07-30] MEDS: HumaLOG INSULIN (NovoLOG) PER UNIT SC SCH ×4 (07:30→20:56)
--- NOTE | 2020-07-30 07:52 | REP ---
INDICATION: chest tube. COMPARISON: 07/29/2020. TECHNIQUE: Portable AP chest with the patient semi upright. FINDINGS: The bilateral thoracotomy tubes are unchanged. The left costophrenic angle is opacified as an interval change suggestive of left pleural effusion or left lower lobe infiltrate or combination. Cardiac size is enlarged, unchanged. Right lung is clear, unchanged. Left upper extremity PICC line is unchanged. IMPRESSION: Opacification of the left costophrenic angle suggestive of the fusion, infiltrate or combination. The bilateral thoracotomy tubes are unchanged. <Electronically signed by Mario Nazario > 07/30/20 0748
[2020-07-30] MEDS: MIRALAX *UNIT DOSE* 17GM PACKET PO SCH (09:00)
[2020-07-30] MEDS: LIDOCAINE 5% (LIDODERM) PATCH TD SCH (10:01)
[2020-07-30] MEDS: oxyCODONE 5MG TAB PO SCH ×2 (10:06→23:10)
[2020-07-30] MEDS: TAMSULOSIN 0.4 MG CAP PO SCH (10:06)
[2020-07-30] MEDS: NEPHRO-VIT TAB (NEPHROCAPS) PO SCH (10:06)
[2020-07-30] MEDS: OLANZapine 5 MG TAB PO SCH ×2 (10:06→20:56)
[2020-07-30] MEDS: DOCUSATE SODIUM 100MG CAPSULE PO SCH ×2 (10:06→20:46)
[2020-07-30] MEDS: levETIRAcetam 250MG TABLET (KEPPRA) PO SCH ×2 (10:06→20:56)
[2020-07-30] MEDS: SERTRALINE HCL 50 MG TAB PO SCH (10:07)
[2020-07-30] MEDS: MOM 30ML SUSPENSION UDC PO SCH (10:07)
[2020-07-30] MEDS: PANTOPRAZOLE 40MG TAB (PROTONIX) PO SCH (10:07)
[2020-07-30] MEDS: CARVedilol 6.25 MG TAB PO SCH ×2 (10:07→20:47)
--- NOTE | 2020-07-30 12:52 | IPN ---
PROGRESS NOTE DATE: 07/30/2020 SUBJECTIVE: The patient is seen and examined at the bedside. Chart has been reviewed. He currently has two chest tubes. Complains of slight shortness of breath this morning, as well as chest tightness across the chest on and off since yesterday. He feels better when he clenches his arms in and compresses the chest. No diaphoresis, palpitations, lightheadedness, dizziness, or worsening shortness of breath. OBJECTIVE: VITAL SIGNS: Temperature 97.1, pulse 62, respiratory rate 14, blood pressure 114/56, 97% on 1 liter nasal cannula. INTAKE AND OUTPUT: Intake 670, output 2600, negative 1930. Left chest tube 410; right chest tube 190 overnight. Current weight is 71.9 kg from previous weight of 74.9 kg. GENERAL: He is awake, alert, and oriented to person, place, and time. Answering questions appropriately. HEENT: No JVD. No thyromegaly. Moist mucous membranes. The patient is not diaphoretic. He is able to speak in full sentences without the use of respiratory accessory muscles. LUNGS: Diminished breath sounds at the bilateral bases with crackles. HEART: S1, S2. Regular rate and rhythm. ABDOMEN: Soft, nontender, and nondistended. EXTREMITIES: No cyanosis or clubbing. Bilateral BKA. LABORATORY DATA: White count 5, hemoglobin 8.8, hematocrit 28, platelet count 189,000. On 07/30, metabolic panel was still pending. IMAGING STUDIES: On 07/29 chest x-ray lung gresham are clear. Bilateral thoracotomy tubes. Unchanged left upper extremity PICC line unchanged. On 07/29/2020, EGD chronic gastritis. LA grade B chronic esophagitis biopsied. Nodular mucosa in first portion of duodenum biopsied. ASSESSMENT AND PLAN: This is a 69-year-old male with bilateral below-knee amputation (BKA) and end-stage renal disease on dialysis admitted on 07/23, with shortness of breath and abdominal pain found to have symptomatic anemia with hemoglobin of 6.7. CT abdomen and pelvis showed pericardial effusion status post admitted to intensive care unit (ICU). IMPRESSION: 1. Pericardial effusion status post window on 07/24/2020. Pericardial tube removed on 07/26. Repeat echo showed resolution. Thoracic surgeon managing current chest tubes. Pneumomediastinum status post esophagogastroduodenoscopy (EGD) with gastritis and esophagitis. 2. Left pleural effusion resolved with chest tube secondary to volume overload managed by dialysis. 3. End-stage renal disease on maintenance dialysis managed by sheet metal assembler and riveter. 4. Hemorrhage pericardial effusion secondary to Eliquis. 5. History of pulmonary embolism. Eliquis has been discontinued due to hemorrhage pericardial effusion. 6. Hemorrhagic pericarditis due to Eliquis still with persistent pain. 7. Hypertension, controlled on current medications. 8. History of peripheral vascular disease status post bilateral [id number] amputation. 9. Type 2 diabetes on a consistent carbohydrate diet with sliding scale with coverage currently controlled on current regimen. 10. Esophagitis and gastritis on Protonix 40 daily. 11. Depression on chronic Zoloft. 12. BPH on chronic Flomax. MTDD
[2020-07-30] MEDS: ERTAPENEM SODIUM 0.5 GM in NS 50 ML IV SCH (15:44)
--- NOTE | 2020-07-30 16:29 | IPN ---
PROGRESS NOTE DATE: 07/30/2020 SUBJECTIVE: Mr. Andrade is in a bit brighter mood today. Nonetheless, he still has excruciating left lower quadrant pain just to the lightest of touch on his abdomen. His left side is mildly tender. It is soft, however. Bowel sounds are positive, but hypoactive. OBJECTIVE: VITAL SIGNS: Show a T-max of 98.6 with a blood pressure that ranges between 98/48 to 155/69. Pulse ranges between 62 to 72 in a sinus rhythm. Respiratory rate of 14 to 20 without the use of accessory muscles who is 97% to 99% saturated on 1 liter nasal cannula. INTAKE AND OUTPUT: Over the past 24 hours has been recorded as 670 in and 2600 out for a negativity of 1930 mL; 2000 mL were taken off at hemodialysis yesterday and he has put out 190 mL from the right chest tube and 410 from the left chest tube. There is no air leak. Weight today is 71.9 kg compared to 74.9 kg yesterday. RESPIRATORY: I still cannot sit him up to auscultate his posterior chest and his lungs, secondary to the extreme abdominal pain. Posterolaterally on either side he has equal breath sounds on either side. I do not appreciate wheezes or rales. CARDIAC: Without murmurs, clicks, gallops, or rubs. I no longer hear the squeaking noises I heard yesterday. I cannot feel his PMI. S1 and S2 are normal. ABDOMEN: Soft, only slightly tender on the left, and exquisitely tender on the right. Bowel sounds are positive and he is soft on the left. EXTREMITIES: His thighs show resolution of his edema and there is no edema on the tibial stumps below his knees. There is no differential swelling of the upper extremities. SKIN: Warm, dry, and perfused without cyanosis or mottling, including that of the nail beds and knees. NECK: Supple. There is no jugular venous distention. No subcutaneous emphysema. Trachea is midline. MOUTH: Shows the mucous membranes to be pink and moist. Lips and commisures are without lesions and no thrush. EYES: Show his pupils equal and reactive. Extraocular muscles are intact. Sclerae nonicteric. NEUROLOGIC: Shows II through XII intact. Normal gross motor, gross sensation intact. Gait is not tested. PSYCHIATRIC: Shows him to be awake, alert, and oriented x3 with appropriate mood and affect and conversational. LABORATORY DATA: His white count today is 5.1 with hemoglobin and hematocrit of 8.8 and 28.5 respectively. Platelet count is 189,000 and stable. Differential shows 59% neutrophils, 22% lymphocytes, 14% monocytes. There are no immature forms and no toxic granulations. His electrolytes are normal with a BUN and creatinine of 22 and 3.07 after dialysis yesterday. Glucose is 115 with a calcium of 7.8. IMAGING DATA: His chest x-ray done portably shows clearing of both hemithoraces. Chest tubes are in good place. He does look as if he has some cephalization of vessels on the portable. I see no infiltrates per se. IMPRESSION: 1. Hemorrhagic pericardial effusion resolved with pericardial window and tube pericardiostomy, resolved probably secondary to anticoagulation with Eliquis. 2. Renal failure requiring dialysis. 3. Hypertension. 4. Abdominal pain continuing. 5. Peripheral vascular disease status post bilateral [id number] amputations. 6. Diabetes. 7. Pulmonary embolism previously on Eliquis that has now discontinued. 8. Hemorrhagic pericarditis secondary to Eliquis. 9. Left pleural effusion resolved with a chest tube. PLAN AND DISCUSSION: I will remove his right chest tube today as it is draining less than 200 mL. I will continue his left chest tube. The major outstanding problem with Mr. Andrade is his abdominal pain, which seems to have most everyone stumped. It certainly does not look as if it is intraabdominal, but rather musculoskeletal; perhaps a rectus hematoma. It is utterly exquisitely tender, however. EGD yesterday showed gastritis and some esophagitis, but would not explain his abdominal pain.
[2020-07-30] MEDS ORDERED: oxyCODONE 5MG TAB PO ONE (19:00)
[2020-07-30] MEDS: DONEPEZIL 5 MG TAB PO SCH (20:46)
[2020-07-30] MEDS: ATORVASTATIN 20 MG TAB PO SCH (20:46)
[2020-07-30] MEDS: **NOTE PATIENT COMMENT** MISC XX SCH (20:56)
[2020-07-30] MEDS ORDERED: LIDOCAINE 1% SDV 5ML VIAL SC PRN (22:50)
[2020-07-31] VITALS: BP 124/58
[2020-07-31] MEDS: LEVALBUTEROL HFA 45MCG/ACT 15 GM INHALER INH SCH ×4 (01:35→19:35)
[2020-07-31] MEDS: ONDANSETRON 4MG/2ML VIAL IV PRN ×2 (03:15→11:32)
[2020-07-31 04:00] VITALS: BP 143/66
[2020-07-31] MEDS: LEVOTHYROXINE 25MCG TABLET (0.025MG) PO SCH (05:48)
[2020-07-31] MEDS: SODIUM CHLORIDE 0.9% INJ 10 ML SYR IV SCH ×2 (05:49→16:03)
--- NOTE | 2020-07-31 05:53 | IPN ---
PROGRESS NOTE DATE: 07/30/2020 SUBJECTIVE: The patient was seen and examined at the bed side today morning in the ICU. He is hemodynamically stable. He was dialyzed yesterday. He tolerated the hemodialysis procedure well. 2 liters of fluid were removed. He still reports pain in the lower abdomen. His right-sided chest tube was removed. He still has a chest tube on the left side. OBJECTIVE: Vital signs: Temperature is 97.2 degrees Fahrenheit, blood pressure is 113/56, pulse is 68, respiratory rate of 24, saturating 92% on nasal canula at 1 liter. Intake and output: Urine output is not recorded. Right-sided chest tube has been removed. Left-sided chest tube has an output of 115 ml so far. Weight in the bed scale is 71.9 kg. PHYSICAL EXAMINATION: General: The patient is awake, alert and oriented times 2, laying in bed. Head and neck examination: Extraocular muscles are intact. Pupils equally round and reactive to light. Mucous membranes are moist. Neck is supple. There is no jugular venous distention (JVD). Cardiovascular: S1, S2, regular rate. 1+ edema of the bilateral lower extremities. Respiratory: Decreased breath sounds at the bases. Left-sided chest tube is noted. Abdomen: Tender to deep palpation in the bilateral lower quadrant. Midline surgical scar is healing. Musculoskeletal: Bilateral below-knee amputations were noted. 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 Power is 5/5 in bilateral upper extremities. LABORATORY REVIEW: Complete blood count (CBC) showed a WBC of 5.1, hemoglobin 8.8, platelets of 189. Basic metabolic panel (BMP) showed sodium 139, potassium 3.9, chloride 103, bicarbonate 28, BUN 27, creatinine is 3. IMAGING: Chest x-ray was done today morning, which showed opacification of the left costophrenic angle suggestive of effusion, infiltrate or combination. CURRENT INPATIENT MEDICATIONS: The patient's medications were all reviewed by myself. No significant change in the medications today as compared with yesterday. ASSESSMENT AND PLAN: 1. End-stage renal disease. The patient was dialyzed yesterday. Hemodialysis will be done tomorrow morning. The patient gets heparin pre dialysis because of hemorrhagic pleural and pericardial effusions. 2. Bilateral pleural effusions and pericardial effusion. The patient is status post pericardial window. Pericardial effusion has resolved. Right-sided chest tube has been removed; left-sided chest tube is still in situ. CT surgery is managing the case. 3. Anemia secondary to bleeding and end-stage renal disease. Continue Aranesp. Transfuse as needed for hemoglobin below 8. 4. Pain lower abdomen. The patient had esophagogastroduodenoscopy (EGD) done, which showed gastritis. Otherwise, no etiology of the abdominal pain was noted. Management is as per surgical service.
[2020-07-31 06:16] LABS: HEMATOCRIT 28.7 % (42.0-52.0); HEMOGLOBIN 8.7 g/dl (13.5-17.5); MEAN CORPUSCULAR HEMOGLOBIN 28.1 pg (27.0-33.0); MEAN CORPUSCULAR HGB CONC 30.3 g/dl (32.0-36.5); MEAN CORPUSCULAR VOLUME 92.6 fl (80.0-96.0); PLATELET COUNT, AUTOMATED 200 10^3/uL (150-450); WHITE BLOOD COUNT 4.9 10^3/uL (4.0-10.0)
[2020-07-31 06:36] LABS: CALCIUM LEVEL 7.7 MG/DL (8.8-10.2); CREATININE FOR GFR 4.13 MG/DL (0.70-1.30); GLOMERULAR FILTRATION RATE 15.4 (>49); MAGNESIUM LEVEL 2.2 MG/DL (1.8-2.4); POTASSIUM SERUM 3.9 MEQ/L (3.5-5.1)
[2020-07-31] MEDS: HumaLOG INSULIN (NovoLOG) PER UNIT SC SCH ×5 (07:30→21:00)
[2020-07-31] MEDS ORDERED: oxyCODONE 5MG TAB PO ONE (07:50)
[2020-07-31] MEDS ORDERED: MORPHINE 2 MG/ML 1ML VIAL (J2270) IV ONE (07:50)
--- NOTE | 2020-07-31 07:52 | REP ---
INDICATION: RIGHT LATERAL CHEST TUBE. COMPARISON: 07/30/2020 TECHNIQUE: AP portable chest performed with the patient semi upright. FINDINGS: There is a left thoracotomy tube, unchanged. I suspect there is a tiny left apical pneumothorax. The right thoracotomy tube has been removed. There is no pneumothorax or pleural fluid collection on the right. I suspect there is atelectasis in the left lower lobe. The lung gresham are otherwise clear. Cardiac size is enlarged. There is a left upper extremity PICC line with the tip in the superior vena cava, unchanged. There is an artifact projected over the left upper extremity, possibly an endovascular stent. IMPRESSION: The right thoracotomy tube is been removed. There is no pneumothorax or pleural fluid collection. Atelectasis in the left lower lobe. The left thoracotomy tube is unchanged. I suspect there is a tiny left apical pneumothorax. <Electronically signed by Mario Nazario > 07/31/20 0749
[2020-07-31 08:00] VITALS: BP 182/74
[2020-07-31] MEDS: OLANZapine 5 MG TAB PO SCH ×2 (08:30→22:08)
[2020-07-31] MEDS: DOCUSATE SODIUM 100MG CAPSULE PO SCH ×2 (08:30→22:03)
[2020-07-31] MEDS: levETIRAcetam 250MG TABLET (KEPPRA) PO SCH ×2 (08:30→22:07)
[2020-07-31] MEDS: LIDOCAINE 5% (LIDODERM) PATCH TD SCH (08:30)
[2020-07-31] MEDS: oxyCODONE 5MG TAB PO SCH ×2 (08:31→22:06)
--- NOTE | 2020-07-31 08:41 | REP ---
INDICATION: abd pain. COMPARISON: Comparison is made with images from CT study July 23, 2020.. TECHNIQUE: Portable AP supine radiograph. Two views provided. FINDINGS: There are surgical sutures in the right upper quadrant. Vascular calcification is again observed. There are calcifications in the right upper quadrant above the kidney question biliary calcifications. These are seen to be in the pancreatic head on recent CT study. There are degenerative changes in the lumbar spine and some postsurgical fusion is seen in the lower lumbar spine. 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 There is air and stool in a nondistended colon proximally and distally. A solitary loop of air-filled small bowel is seen in the right mid abdomen. No small bowel dilation is seen. IMPRESSION: Vascular calcification. Postoperative changes in the abdomen and spine. Unremarkable bowel gas pattern. <Electronically signed by Julián Martinez > 07/31/20 0961
[2020-07-31] MEDS: MOM 30ML SUSPENSION UDC PO SCH (09:00)
--- NOTE | 2020-07-31 09:05 | IPNPDOC ---
Date Seen The patient was seen on 07/31/20. Progress Note Hospitalist progress note dictated job #[id number]. If urgently needed, pls call hypertype for STAT pipe organ mechanic. VS, I&O, 24H, Fishbone Vital Signs/I&O Vital Signs Date Time Temp Pulse Resp B/P (MAP) Pulse Ox O2 Delivery O2 Flow Rate FiO2 07/31/20 09:00 18 Room Air 07/31/20 04:00 97.8 71 143/66 (91) 94 1.0 07/30/20 23:10 99 I&O- Last 24 Hours up to 6 AM 07/31/20 06:00 Intake Total 860 ml Output Total 155 ml Balance 705 ml Laboratory Data 24H LABS Laboratory Tests 2 07/30/20 12:11: Bedside Glucose (Misc Panel) 154H 07/30/20 16:11: Bedside Glucose (Misc Panel) 191H 07/30/20 20:50: Bedside Glucose (Misc Panel) 147H 07/31/20 05:59: Nucleated Red Blood Cells % (auto) 0.0, Anion Gap 6L, Glomerular Filtration Rate 15.4L, Calcium Level 7.7L, Magnesium Level 2.2 CBC/BMP Laboratory Tests 07/31/20 05:59 Microbiology Microbiology 07/28/20 Acid Fast Stain, Received Pending 07/28/20 Mycobacterial Culture, Received Pending 07/28/20 Fungal Smear, Received Pending 07/28/20 Fungal Culture, Received Pending 07/28/20 Gram Stain - Final, Complete 07/28/20 Anaerobic Culture - Final, Complete 07/28/20 Body Fluid Culture - Final, Complete 07/24/20 Acid Fast Stain, Received Pending 07/24/20 Mycobacterial Culture, Received Pending 07/24/20 Fungal Smear, Received Pending 07/24/20 Fungal Culture, Received Pending 07/24/20 Gram Stain - Final, Complete 07/24/20 Body Fluid Culture - Final, Complete 07/24/20 Anaerobic Culture - Final, Complete 07/23/20 Blood Culture - Final, Complete NO GROWTH AFTER 5 DAYS JEFF RENTERIA MD Jul 31, 2020 09:05
[2020-07-31 12:30] VITALS: BP 170/54
[2020-07-31] MEDS: NEPHRO-VIT TAB (NEPHROCAPS) PO SCH (13:06)
[2020-07-31] MEDS: CARVedilol 6.25 MG TAB PO SCH ×2 (13:06→22:07)
[2020-07-31] MEDS: TAMSULOSIN 0.4 MG CAP PO SCH (13:06)
[2020-07-31] MEDS: SERTRALINE HCL 50 MG TAB PO SCH (13:06)
[2020-07-31] MEDS: PANTOPRAZOLE 40MG TAB (PROTONIX) PO SCH (13:07)
--- NOTE | 2020-07-31 13:13 | IPN ---
PROGRESS NOTE DATE: 07/31/2020 Patient remains with chest tube, complains of severe pain across the abdomen from left to right, epigastric region and bilateral lower quadrants this morning, rating it at 7/10 without nausea, vomiting, fever, or chills. Patient has no abdominal distention. No other issues overnight. No complaints of shortness of breath, chest pain, pressure, tightness, lightheadedness, or dizziness. Patient is nonambulatory with bilateral below-knee amputation (BKA). OBJECTIVE: PHYSICAL EXAMINATION: Vital signs: Temperature 97.8, pulse 71, respiratory rate 19, blood pressure 143/66, 94% on 1 liter nasal cannula. Generally: Patient appears anxious but not diaphoretic, no pallor, no icterus or jaundice. Speaks in full sentences. No jugular venous distension (JVD), thyromegaly, or cervical lymphadenopathy. Patient has chest tube in place with bloody drainage. Lungs are diminished but clear. Heart: S1, S2, sinus rhythm. Abdomen is soft, tender bilateral lower quadrants. No rebound or guarding. No hepatosplenomegaly. Extremities: Bilateral BKA. No cyanosis or clubbing. Skin: Warm, dry, well-perfused, pink in color. LABORATORY DATA: White count 4.9, hemoglobin 8.7, hematocrit 28, platelet count 200, sodium 137, potassium 3.9, chloride 103, bicarbonate 28, BUN 35, creatinine 4.13, glucose of 106. Intake and output: Intake 1100, output 205, since midnight output was 20 mL. Left thoracotomy tube 175 mL, right one is 30 mL. Current weight is 80.7 kg. Repeat chest x-ray 07/31/2020: Left thoracotomy unchanged, tiny left apical pneumothorax. No pneumothorax or pleural fluid collection on the right, chest tube has been removed. Atelectasis in the left lower lobe. ASSESSMENT AND PLAN: This is a 69-year-old male with end-stage renal disease on maintenance dialysis, admitted on 07/23/2020 with shortness of breath, abdominal pain, and found to have symptomatic anemia, hemoglobin of 6.7, and pericardial effusion with pneumomediastinum status post pericardial window. IMPRESSION: 1. Pericardial effusion, bilateral pleural effusion status post window on 07/24/2020. Patient's right thoracotomy tube has been discontinued. Left chest tube still in place with small left apical pneumothorax managed by thoracic surgeon. Left apical pneumothorax and left-sided pleural effusion due to volume overload managed by dialysis and chest tube management per thoracic surgeon, Dr. Felipe Palomo. 2. End-stage renal disease. On maintenance dialysis managed by pigment pusher. 3. Hemorrhagic pericardial effusion secondary to Eliquis. 4. History of pulmonary embolism on Eliquis which has been discontinued due to recent hemorrhagic pericardial effusion. 5. Hypertension. Currently controlled. 6. History of peripheral vascular disease status post [id number] amputation. 7. Persistent abdominal pain with esophagitis/gastritis noted on EGD. No signs of perforation. On Protonix 40 daily. 8. Pneumomediastinum. Resolved. Evaluation included EGD which did not show any perforated viscus. 9. BPH. On Flomax. 10. Depression. On chronic Zoloft. MTDD
--- NOTE | 2020-07-31 13:48 | IPN ---
PROGRESS NOTE DATE: 07/31/2020 Mr. Andrade has just come back from dialysis. He still the abdominal pain, more on the right than the left, but it seems to be spreading somewhat to the left lower quadrant. He is breathing well. His vital signs show a maximum temperature of 97.9 with a heart rate that ranges between 71-74 in a sinus rhythm, respiratory rate of 17-19 without the use of accessory muscles, who is 94%-99% saturated on 1 liter nasal cannula and whose blood pressure is ranging between 182/74 to 124/58. His intake and output for the past 24 hours has been recorded as 1100 in and 205 out, for a positivity of 895 mL. He has had 175 mL out of the chest tube. He weighs 80.7 kg today compared to 71.9 kg yesterday. PHYSICAL EXAMINATION: He has equal breath sounds on either side. I still cannot sit him up to listen to his back because of his intense abdominal pain. Cardiac exam shows a pericardial friction rub. There are no murmurs, clicks, or gallops. I cannot feel his point of maximal impulse (PMI). Abdomen is soft on the left but exquisitely tender on the right. I cannot appreciate hepatomegaly from his pain. Costovertebral angle (CVA) tenderness is not tested. His thighs show no edema. There is no differential swelling of the upper extremities. Skin is warm, dry, and perfused without cyanosis or mottling, including that of the nailbeds and knees. Neck is supple. There is no jugular venous distention. No subcutaneous emphysema. Trachea is midline. Mouth shows the mucous membranes to be pink and moist. Lips and commissures without lesions. No thrush. Eyes show his pupils to be equal and reactive. Extraocular motion intact. Sclerae anicteric. Neurologic shows II-XII intact. Normal gross motor, gross sensation intact. Gait is not tested. Psychiatric shows him to be awake, alert, and oriented times three with appropriate mood and affect and conversational. His white count today is 4.9 with a hemoglobin and hematocrit of 8.7 and 28.7, essentially unchanged from yesterday, with a platelet count of 200 and stable. Chemistries today show normal electrolytes with a BUN and creatinine of 35 and 4.13 prior to dialysis. Calcium is 7.7 with a magnesium of 2.2. His chest x-ray today shows his lung fully expanded to the chest wall. Costophrenic angles are sharp. Heart silhouette seems to be smaller additionally. It is done portably. IMPRESSION: 1. Hemorrhagic pericardial effusion, resolved with pericardial window and tube pericardiostomy. Probably secondary to anticoagulation with Eliquis. 2. Renal failure requiring dialysis. 3. Hypertension. 4. Abdominal pain, continuing. 5. Peripheral vascular disease, status post bilateral below-knee amputations. 6. Diabetes. 7. Pulmonary embolism, previously on Eliquis, now discontinued. 8. Hemorrhagic pericarditis secondary to Eliquis. 9. Left pleural effusion, resolved with a chest tube and diminishing. PLAN AND DISCUSSION: I will remove his chest tube today. I will follow his chest x-ray tomorrow. If the fluid remains at bay, I will withdraw from the case. I have removed his suture tags from his pericardial window.
[2020-07-31] MEDS: ERTAPENEM SODIUM 0.5 GM in NS 50 ML IV SCH (15:10)
[2020-07-31 16:00] VITALS: BP 140/56
[2020-07-31 20:00] VITALS: BP 145/83
[2020-07-31] MEDS: **NOTE PATIENT COMMENT** MISC XX SCH (21:00)
[2020-07-31] MEDS: ATORVASTATIN 20 MG TAB PO SCH (22:03)
[2020-07-31] MEDS: DONEPEZIL 5 MG TAB PO SCH (22:07)
[2020-08-01] MEDS: ACETAMINOPHEN TAB 650MG DOSE (2X325MG) PO PRN ×2 (01:01→05:33)
[2020-08-01] MEDS: LEVALBUTEROL HFA 45MCG/ACT 15 GM INHALER INH SCH ×4 (02:13→20:47)
[2020-08-01 04:00] VITALS: BP 118/57
[2020-08-01] MEDS: LEVOTHYROXINE 25MCG TABLET (0.025MG) PO SCH (05:33)
[2020-08-01 05:35] LABS: BASO % 0.4 % (0.0-1.0); EOS # 0.2 10^3/uL (0.0-0.5); EOS % 3.4 % (0.0-3.0); HEMATOCRIT 29.9 % (42.0-52.0); HEMOGLOBIN 9.2 g/dl (13.5-17.5); LYMPH # 1.4 10^3/uL (1.5-5.0); LYMPH % 29.1 % (24.0-44.0); MEAN CORPUSCULAR HEMOGLOBIN 28.7 pg (27.0-33.0); MEAN CORPUSCULAR HGB CONC 30.8 g/dl (32.0-36.5); MEAN CORPUSCULAR VOLUME 93.1 fl (80.0-96.0); MONO # 0.8 10^3/uL (0.0-0.8); MONO % 15.2 % (2.0-8.0); NEUTROPHILS # 2.6 10^3/uL (1.5-8.5); NEUTROPHILS % 51.7 % (36.0-66.0); PLATELET COUNT, AUTOMATED 213 10^3/uL (150-450); RED BLOOD COUNT 3.21 10^6/uL (4.30-6.10); WHITE BLOOD COUNT 4.9 10^3/uL (4.0-10.0)
[2020-08-01] MEDS: SODIUM CHLORIDE 0.9% INJ 10 ML SYR IV SCH ×2 (05:35→16:00)
[2020-08-01 06:40] LABS: CALCIUM LEVEL 7.8 MG/DL (8.8-10.2); CREATININE FOR GFR 3.35 MG/DL (0.70-1.30); GLOMERULAR FILTRATION RATE 19.7 (>49); MAGNESIUM LEVEL 2.3 MG/DL (1.8-2.4); POTASSIUM SERUM 3.9 MEQ/L (3.5-5.1)
[2020-08-01 07:13] VITALS: BP 116/57
[2020-08-01] MEDS: HumaLOG INSULIN (NovoLOG) PER UNIT SC SCH ×4 (07:30→20:32)
--- NOTE | 2020-08-01 07:44 | REP ---
INDICATION: RIGHT LATERAL CHEST TUBE. COMPARISON: 07/31/2020. TECHNIQUE: Portable AP chest with the patient semi upright. FINDINGS: The left thoracotomy tube is been removed. The previous tiny left apical pneumothorax has resolved. Atelectasis in the left lower lobe is again suspected. Right lung is clear. Cardiac size is enlarged, unchanged. The left upper extremity PICC line is unchanged with the tip again in the superior vena cava in satisfactory position. IMPRESSION: The left thoracotomy tube is been removed. The tiny left apical pneumothorax has resolved. No other interval changes. <Electronically signed by Mario Nazario > 08/01/20 0788
[2020-08-01] MEDS: CARVedilol 6.25 MG TAB PO SCH ×2 (08:32→20:28)
[2020-08-01] MEDS ORDERED: oxyCODONE 5MG TAB PO PRN (08:40)
[2020-08-01] MEDS: NEPHRO-VIT TAB (NEPHROCAPS) PO SCH (08:49)
[2020-08-01] MEDS: OLANZapine 5 MG TAB PO SCH ×2 (08:49→20:27)
[2020-08-01] MEDS: TAMSULOSIN 0.4 MG CAP PO SCH (08:49)
[2020-08-01] MEDS: LIDOCAINE 5% (LIDODERM) PATCH TD SCH (08:49)
[2020-08-01] MEDS: MIRALAX *UNIT DOSE* 17GM PACKET PO SCH (08:49)
[2020-08-01] MEDS: levETIRAcetam 250MG TABLET (KEPPRA) PO SCH ×2 (08:50→20:25)
[2020-08-01] MEDS: SERTRALINE HCL 50 MG TAB PO SCH (08:50)
[2020-08-01] MEDS: PANTOPRAZOLE 40MG TAB (PROTONIX) PO SCH (08:50)
[2020-08-01] MEDS: MOM 30ML SUSPENSION UDC PO SCH (08:50)
[2020-08-01] MEDS: DOCUSATE SODIUM 100MG CAPSULE PO SCH ×2 (08:50→20:28)
--- NOTE | 2020-08-01 09:11 | IPN ---
NEPHROLOGY PROGRESS NOTE DATE: 07/31/2020 SUBJECTIVE: Patient was seen and examined at the bedside today morning during hemodialysis. Patient is afebrile, hemodynamically stable. He is tolerating the hemodialysis procedure well. OBJECTIVE: VITAL SIGNS: Temperature 98.1 degrees Fahrenheit, blood pressure 145/83, pulse 83, respiratory rate 17, saturating 97% on room air. INTAKE/OUTPUT: Urine output is not recorded. Chest tube drainage is 20 mL. Weight in the bed scale is 80.7 kg. PHYSICAL EXAMINATION: GENERAL: Patient is awake, alert and oriented x2, lying in bed, getting hemodialysis done. HEAD AND NECK: Extraocular muscles intact. Pupils equally round and reactive to light. Mucous membranes are moist. Neck is supple. No JVD. RESPIRATORY: Decreased breath sounds at the bases. Left-sided chest tube is noted. CARDIOVASCULAR: S1, S2, regular rate. 1+ edema of the lower extremities. ABDOMEN: Soft, quite tender to deep palpation in bilateral lower quadrants. MUSCULOSKELETAL: Bilateral knee amputation was noted. TAP PULLER: No focal deficit. Power is 5/5 in bilateral upper extremities. LAB REVIEW: CBC showed WBC 4.9, hemoglobin 8.7, platelets 200,000. BMP showed sodium 137, potassium 3.9, chloride 103, bicarb 28, BUN 35, creatinine 4.1. CURRENT INPATIENT MEDICATIONS: Patient's medications were all reviewed by myself. No significant change in the medications today as compared with yesterday. ASSESSMENT AND PLAN: 1. End-stage renal disease: Patient is being dialyzed according to his regular schedule. Ultrafiltration goal will be 2 liters as tolerated by his blood pressure. 2. Bilateral pleural effusions and pericardial effusion: Patient's right-sided chest tube was removed. Left-sided chest tube is draining less now. CT surgery to decide about removal of the chest tube. 3. Anemia and end-stage renal disease: Continue current dose of Aranesp with dialysis.
[2020-08-01 11:39] VITALS: BP 149/68
--- NOTE | 2020-08-01 12:22 | IPN ---
PROGRESS NOTE DATE: 08/01/2020 SUBJECTIVE: Patient continues to be encephalopathic and with acute delirium later in the afternoon. His pain medications have holding parameters for respiratory depression as well as confusion. This morning he was hard to awaken, but when he awakened, he was appropriate with questioning. According to nursing, patient did well with his pain control and was only given Acetaminophen after the delirium yesterday afternoon. No shortness of breath. Chest tube has been removed. Stable overnight, saturating 94 to 97% on room air. PHYSICAL EXAMINATION: VITAL SIGNS: Temperature 97, pulse 61, respiratory rate 18, blood pressure 116/57, 94% on room air. GENERAL: Patient is awake, alert, oriented to himself, a little difficult to awaken, but once awake appropriate and answering questions. No respiratory distress. HEENT: No JVD. No thyromegaly or cervical lymphadenopathy. Moist mucous membranes. LUNGS: Diminished with fine crackles at the bases. HEART: S1, S2, sinus rhythm. ABDOMEN: Obese, soft, nontender, non-distended. EXTREMITIES: Bilateral BKA. SKIN: Warm, dry, well perfused. [place] in color. LABORATORY DATA: White count 4.9, hemoglobin 9.2, hematocrit 29.9, platelet count 213,000. Sodium 139, potassium 3.9, chloride 103, bicarb 31, BUN 22, creatinine 3.35, glucose 102. IMAGING STUDIES: Chest x-ray 08/01/2020; left thoracotomy tube has been removed. Tiny left apical pneumothorax has resolved. No other interval changes. ASSESSMENT: This is a 69-year-old male with history of end-stage renal disease on maintenance dialysis, admitted on 07/23/2020 with shortness of breath, abdominal pain and chest pain. He was found to have symptomatic anemia with hemoglobin of 6.7 and a pericardial effusion with pneumomediastinum; status post pericardial window. Current issues include pericardial effusion, bilateral pleural effusion secondary to fluid overload from end-stage renal disease, left apical pneumothorax, end-stage renal disease on maintenance dialysis, hemorrhagic pericardial effusion secondary to Eliquis, history of pulmonary embolism on Eliquis held due to hemorrhagic pericardial effusion, hypertension, peripheral vascular disease with bilateral below the knee amputation, abdominal pain with esophagitis, gastritis noted on EGD, pneumomediastinum, resolved and no signs of perforation on EGD, BPH and depression. PLAN: Continue with present management. Patient maybe transferred to medical surgical floor. Dialysis needs per nephrology. Thoracic surgery has signed off. Will monitor for recurrent pneumothorax. If medically stable, patient's antibiotics can be discontinued after a total of seven day course. Monitor patient on his pain medications due to acute delirium caused by opioids. Will change opioids to as needed. MTDD
--- NOTE | 2020-08-01 13:20 | IPN ---
PROGRESS NOTE DATE: 08/01/2020 SUBJECTIVE: Mr. Andrade is breathing well. He still has his abdominal pain, which is still quite exquisite and hurts at even the lightest touch in the right lower quadrant. His chest tube was removed yesterday. OBJECTIVE: VITAL SIGNS: Show a T-max of 97.3 with a heart rate that ranges between 59 and 75 in sinus rhythm. Respiratory rate that is constant 18 who is 94% to 97% saturated on room air and whose blood pressure is ranging between 118/57 to 116/57. INTAKE AND OUTPUT: Over the past 24 hours has been recorded as 710 in and 2020 out for a negativity of 1310 mL. He went to hemodialysis yesterday and 2000 mL were removed. He weighs 82.2 kg today compared to 80.7 kg yesterday. RESPIRATORY: I still cannot sit him up because of his abdominal pain. Nonetheless, his lungs show equal breath sounds on either side. I hear no wheezes, rhonchi, or rales anteriorly. CARDIAC: Exam does not show the pericardial friction rub that I heard yesterday. S1 and S2 are normal. I cannot feel his PMI. ABDOMEN: Exquisitely tender on the right side particularly in the right lower quadrant. Left side is soft. Bowel sounds are positive. EXTREMITIES: Show no edema in his thigh. There is no differential swelling of the upper extremities. SKIN: Warm, dry, and perfused without cyanosis or mottling, including that of the nail beds and knees. NECK: Supple. There is no jugular venous distention. No subcutaneous emphysema. Trachea is midline. MOUTH: Shows the mucous membranes to be pink and moist. Lips and commisures are without lesions and no thrush. EYES: Show his pupils equal and reactive. Extraocular muscles are intact. Sclerae nonicteric. NEUROLOGIC: Shows II through XII intact. Normal gross motor, gross sensation intact. Gait is not tested. PSYCHIATRIC: Shows him to be awake, alert, and oriented x3 with appropriate mood and affect and conversational. LABORATORY DATA: His white count today is 4.9 with hemoglobin and hematocrit of 9.2 and 29.9 respectively. Platelet count is 213,000 and differential shows 51% neutrophils, 29% lymphocytes, and 15% monocytes. There are no immature forms and no toxic granulations. His electrolytes are normal with a BUN and creatinine of 22 and 3.35 after dialysis yesterday. Glucose is 102 with a calcium of 7.8. IMAGING DATA: His chest x-ray shows his lungs fully expand to the chest wall. It is done portably, but costophrenic angles look fairly sharp. I see no evidence of pleural effusions. IMPRESSION: 1. Hemorrhagic pericarditis and pericardial effusion resolved with pericardial window and tuber pericardiostomy probably secondary to Eliquis anticoagulation. 2. Renal failure requiring dialysis. 3. Hypertension. 4. Abdominal pain continuing of unknown origin. 5. Peripheral vascular disease status post bilateral [id number] amputation. 6. Diabetes. 7. History of pulmonary embolism previously on Eliquis now discontinued. 8. Hemorrhagic pericarditis secondary to Eliquis. 9. Left pleural effusion resolved with chest tube. PLAN AND DISCUSSION: His pericarditis and pericardial effusion are resolved. His pleural effusions are resolved and I will therefore withdraw from the case. I have no objection to him being placed on the med-surg unit per the hospitalist service.
[2020-08-01] MEDS: ERTAPENEM SODIUM 0.5 GM in NS 50 ML IV SCH (15:07)
[2020-08-01 15:42] VITALS: BP 132/60
[2020-08-01] MEDS: ONDANSETRON 4MG/2ML VIAL IV PRN (18:13)
[2020-08-01] MEDS: SODIUM CHLORIDE 0.9% INJ 10 ML SYR IV PRN (18:14)
[2020-08-01 20:00] VITALS: BP 105/52
[2020-08-01] MEDS: ATORVASTATIN 20 MG TAB PO SCH (20:25)
[2020-08-01] MEDS: oxyCODONE 5MG TAB PO SCH (20:27)
[2020-08-01] MEDS: DONEPEZIL 5 MG TAB PO SCH (20:28)
[2020-08-01] MEDS: **NOTE PATIENT COMMENT** MISC XX SCH (21:00)
--- NOTE | 2020-08-01 23:28 | IPN ---
NEPHROLOGY PROGRESS NOTE DATE: 08/01/2020 SUBJECTIVE: Patient was seen and examined at the bedside today morning. Patient is lying in the bed. He is sleepy and drowsy. He was dialyzed yesterday and 2 liters of fluid was removed, which he tolerated well. He still complains of moderate persistent lower abdominal pain. OBJECTIVE: VITAL SIGNS: Temperature 97.3 degrees Fahrenheit, blood pressure 105/52, pulse 69, respiratory rate 16, saturating 100% on room air. INTAKE/OUTPUT: No urine output recorded. Ultrafiltration with hemodialysis was 2 liters. PHYSICAL EXAMINATION: GENERAL: Patient lying in bed, drowsy, obtunded. HEAD AND NECK: Mucous membranes are moist. Neck is supple. No JVD. RESPIRATORY: Chest is clear to auscultation bilaterally. Bilateral equal air entry. CARDIOVASCULAR: S1, S2, regular rate. Trace edema of bilateral lower extremities. ABDOMEN: Soft, moderate amount of tenderness in the lower quadrants. MUSCULOSKELETAL: Bilateral below knee amputation. MEDICAL RADIATION DOSIMETRIST: Patient is very drowsy and sleepy. LAB REVIEW: CBC showed WBC 4.9, hemoglobin 9.2, platelets 213,000. BMP showed sodium 139, potassium 3.9, chloride 103, bicarb 31, BUN 22, creatinine 3.3. CURRENT INPATIENT MEDICATIONS: Patient's medications were all reviewed by myself. He continues to be on Ertapenem. ASSESSMENT AND PLAN: 1. End-stage renal disease: Patient was dialyzed yesterday. Next hemodialysis will be on Monday. 2. Bilateral pleural effusions and pericardial effusion: Patient gets Heparin free dialysis. Volume status is being optimized through dialysis. Management of left-sided pleural effusion is as per CT surgery. 3. Anemia and end-stage renal disease: Patient continues to be on Aranesp. Hemoglobin level is stable and improving. 4. Hypertension: Blood pressure is controlled with Coreg 6.25 mg p.o. twice a day.
[2020-08-02] VITALS: BP 127/50
[2020-08-02] MEDS: LEVALBUTEROL HFA 45MCG/ACT 15 GM INHALER INH SCH ×4 (01:15→19:48)
[2020-08-02 04:00] VITALS: BP 147/68
[2020-08-02] MEDS: LEVOTHYROXINE 25MCG TABLET (0.025MG) PO SCH (05:44)
[2020-08-02] MEDS: ONDANSETRON 4MG/2ML VIAL IV PRN ×3 (05:44→22:45)
[2020-08-02] MEDS: ACETAMINOPHEN TAB 650MG DOSE (2X325MG) PO PRN ×2 (05:45→14:30)
[2020-08-02] MEDS: SODIUM CHLORIDE 0.9% INJ 10 ML SYR IV SCH ×2 (06:01→16:32)
[2020-08-02 07:05] VITALS: BP 130/60
--- NOTE | 2020-08-02 07:22 | REP ---
INDICATION: RIGHT LATERAL CHEST TUBE. COMPARISON: 08/01/2020. TECHNIQUE: Portable AP chest with the patient sitting FINDINGS: Atelectasis is good again suspected in the left lower lobe. The remainder of the lung gresham are clear and unchanged. Cardiac size is enlarged, unchanged. The left upper extremity PICC line is unchanged. IMPRESSION: No interval change. <Electronically signed by Mario Nazario > 08/02/20 0718
[2020-08-02] MEDS: HumaLOG INSULIN (NovoLOG) PER UNIT SC SCH ×4 (07:30→20:46)
[2020-08-02] MEDS ORDERED: oxyCODONE 5MG TAB PO ONE (08:00)
[2020-08-02] MEDS ORDERED: SUCRALFATE 1 GM TAB PO ONE (08:00)
--- NOTE | 2020-08-02 08:30 | IPNPDOC ---
Date Seen The patient was seen on 08/02/20. Progress Note Hospitalist progress note dictated job #[id number]. 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 VS, I&O, 24H, Fishbone Vital Signs/I&O Vital Signs Date Time Temp Pulse Resp B/P (MAP) Pulse Ox O2 Delivery O2 Flow Rate FiO2 08/02/20 07:05 97.9 75 20 130/60 (83) 100 Nasal Cannula 3.0 07/30/20 23:10 99 I&O- Last 24 Hours up to 6 AM 08/02/20 06:00 Intake Total 490 ml Output Total 600 ml Balance -110 ml Laboratory Data 24H LABS Laboratory Tests 2 08/01/20 11:02: Bedside Glucose (Misc Panel) 148H 08/01/20 16:04: Bedside Glucose (Misc Panel) 116H 08/01/20 20:21: Bedside Glucose (Misc Panel) 113 08/02/20 06:00: Bedside Glucose (Misc Panel) 97 Microbiology Microbiology 07/28/20 Acid Fast Stain, Received Pending 07/28/20 Mycobacterial Culture, Received Pending 07/28/20 Fungal Smear, Received Pending 07/28/20 Fungal Culture, Received Pending 07/28/20 Gram Stain - Final, Complete 07/28/20 Anaerobic Culture - Final, Complete 07/28/20 Body Fluid Culture - Final, Complete 07/24/20 Acid Fast Stain, Received Pending 07/24/20 Mycobacterial Culture, Received Pending 07/24/20 Fungal Smear, Received Pending 07/24/20 Fungal Culture, Received Pending 07/24/20 Gram Stain - Final, Complete 07/24/20 Body Fluid Culture - Final, Complete 07/24/20 Anaerobic Culture - Final, Complete 07/23/20 Blood Culture - Final, Complete NO GROWTH AFTER 5 DAYS JEFF RENTERIA MD Aug 02, 2020 08:30
[2020-08-02] MEDS: DOCUSATE SODIUM 100MG CAPSULE PO SCH ×2 (09:00→20:02)
[2020-08-02] MEDS: TAMSULOSIN 0.4 MG CAP PO SCH (09:32)
[2020-08-02] MEDS: MOM 30ML SUSPENSION UDC PO SCH (09:33)
[2020-08-02] MEDS: LIDOCAINE 5% (LIDODERM) PATCH TD SCH (09:33)
[2020-08-02] MEDS: SERTRALINE HCL 50 MG TAB PO SCH (09:33)
[2020-08-02] MEDS: OLANZapine 5 MG TAB PO SCH ×2 (09:33→20:03)
[2020-08-02] MEDS: PANTOPRAZOLE 40MG TAB (PROTONIX) PO SCH (09:33)
[2020-08-02] MEDS: NEPHRO-VIT TAB (NEPHROCAPS) PO SCH (09:33)
[2020-08-02] MEDS: levETIRAcetam 250MG TABLET (KEPPRA) PO SCH ×2 (09:33→20:03)
[2020-08-02] MEDS: CARVedilol 6.25 MG TAB PO SCH ×2 (09:35→20:05)
[2020-08-02 11:35] VITALS: BP_SYST 132; BP_SYST 90; BP_DIAS 49; BP_DIAS 64
[2020-08-02] MEDS: SUCRALFATE 1 GM TAB PO SCH ×3 (11:36→20:03)
[2020-08-02] MEDS: oxyCODONE 5MG TAB PO PRN (11:37)
[2020-08-02] MEDS ORDERED: LIDOCAINE 1% SDV 5ML VIAL SC PRN (11:55)
--- NOTE | 2020-08-02 14:14 | IPN ---
PROGRESS NOTE DATE: 08/02/2020 SUBJECTIVE: The patient is seen and examined at the bedside. Chart has been reviewed. He complains of diffuse abdominal pain, but per nursing has been doing well and only had one Percocet all night long. No nausea, vomiting, shortness of breath, chest pain, pressure, tightness, lightheadedness or dizziness. The patient has bilateral below-knee amputation (BKA) and usually is not ambulatory and needs one person assistance going from bed to his wheelchair at home. OBJECTIVE: Physical examination: Vital signs: Temperature 97.9, pulse 75, respiratory rate 20, blood pressure 130/60, 100% on 3 liters nasal canula. General: Awake, alert, oriented x3, answering questions appropriately. No jugular venous distention (JVD), no thyromegaly. Poor dentition. Dry mucous membranes. Chapped lips. No stridor, no carotid bruit. Heart: S1, S2. Sinus rhythm. Lungs: Clear to auscultation. No wheezes, rales or rhonchi. Abdomen: Soft, nontender. Abdomen: Soft. Some epigastric tenderness. No rebound or guarding. Positive bowel sounds in all four quadrants, non-distended. No hepatosplenomegaly. Skin: Left upper PICC line without erythema. Bilateral below-knee amputation (BKA) on lower extremities. Skin: Warm, dry, well perfuse, pink in color. LABORATORY DATA: Pending labs this morning. ASSESSMENT: This is a 69-year-old male admitted due to hemorrhagic pericardial effusion, developed pleural effusion requiring chest tube placement, developed pneumomediastinum after pericardial window. CURRENT ISSUES ARE FOLLOWS: 1. Pericardial effusion, status post pericardial window. 2. Left-sided pleural effusion, status post right thoracotomy tube resolved. 3. End-stage renal disease on maintenance dialysis. 4. Hemorrhagic pericardial effusion secondary to Eliquis. 5. History of pulmonary embolus on chronic Eliquis, held due to recent hemorrhagic pericardial effusion. 6. Hypertension. 7. Peripheral vascular disease with bilateral below-knee amputation (BKA). 8. Esophagitis, gastritis with persistent abdominal pain. 9. Pneumomediastinum, resolved. 10.Benign prostatic hypertrophy (BPH) 11.Depression. 12.Acute delirium secondary to opioids without respiratory distress. PLAN: The patient's pain medications have been changed to as needed due to episodes of altered mental status and acute delirium that has been noted after pain medications are given. He is continued on all his home medications including Protonix, Zoloft, Flomax, Synthroid, Coreg, atorvastatin, Aricept, Keppra, Xopenex and has been started on Carafate 1 gm at meals and at bedtime due to persistent epigastric pain and recent gastritis, esophagitis noted on esophagogastroduodenoscopy (EGD). He is also on Protonix 40 mg daily. At baseline, he usually has one person assistance at home. ARU will be consulted, otherwise he is medically stable for hospital discharge. [facility]
[2020-08-02 15:06] LABS: HEMATOCRIT 28.7 % (42.0-52.0); HEMOGLOBIN 8.7 g/dl (13.5-17.5); MEAN CORPUSCULAR HEMOGLOBIN 28.7 pg (27.0-33.0); MEAN CORPUSCULAR HGB CONC 30.3 g/dl (32.0-36.5); MEAN CORPUSCULAR VOLUME 94.7 fl (80.0-96.0); PLATELET COUNT, AUTOMATED 221 10^3/uL (150-450); RED BLOOD COUNT 3.03 10^6/uL (4.30-6.10); WHITE BLOOD COUNT 4.9 10^3/uL (4.0-10.0)
[2020-08-02 15:35] LABS: CALCIUM LEVEL 7.4 MG/DL (8.8-10.2); CREATININE FOR GFR 5.01 MG/DL (0.70-1.30); GLOMERULAR FILTRATION RATE 12.4 (>49); POTASSIUM SERUM 4.8 MEQ/L (3.5-5.1)
[2020-08-02] MEDS: DONEPEZIL 5 MG TAB PO SCH (20:03)
[2020-08-02] MEDS: ATORVASTATIN 20 MG TAB PO SCH (20:03)
[2020-08-02] MEDS: oxyCODONE 5MG TAB PO SCH (20:05)
[2020-08-02] MEDS: **NOTE PATIENT COMMENT** MISC XX SCH (20:35)
[2020-08-02 22:00] VITALS: BP 135/58
[2020-08-03] MEDS: LEVALBUTEROL HFA 45MCG/ACT 15 GM INHALER INH SCH ×4 (01:36→20:22)
[2020-08-03] MEDS ORDERED: LIDOCAINE 5% (LIDODERM) PATCH TD ONE (04:11)
[2020-08-03 06:00] VITALS: BP 141/57
[2020-08-03] MEDS: LEVOTHYROXINE 25MCG TABLET (0.025MG) PO SCH (06:22)
[2020-08-03] MEDS: SODIUM CHLORIDE 0.9% INJ 10 ML SYR IV SCH ×2 (06:22→20:19)
[2020-08-03] MEDS: TAMSULOSIN 0.4 MG CAP PO SCH (06:23)
[2020-08-03] MEDS: MOM 30ML SUSPENSION UDC PO SCH (06:23)
[2020-08-03] MEDS: SERTRALINE HCL 50 MG TAB PO SCH (06:23)
[2020-08-03] MEDS: DOCUSATE SODIUM 100MG CAPSULE PO SCH ×2 (06:23→21:13)
[2020-08-03] MEDS: SUCRALFATE 1 GM TAB PO SCH ×4 (06:23→21:13)
[2020-08-03] MEDS: NEPHRO-VIT TAB (NEPHROCAPS) PO SCH (06:23)
[2020-08-03] MEDS: MIRALAX *UNIT DOSE* 17GM PACKET PO SCH (06:23)
[2020-08-03] MEDS: CARVedilol 6.25 MG TAB PO SCH ×2 (06:24→21:14)
[2020-08-03] MEDS: levETIRAcetam 250MG TABLET (KEPPRA) PO SCH ×2 (06:24→21:13)
[2020-08-03] MEDS: OLANZapine 5 MG TAB PO SCH ×2 (06:24→21:14)
[2020-08-03] MEDS: PANTOPRAZOLE 40MG TAB (PROTONIX) PO SCH (06:24)
[2020-08-03 06:33] VITALS: BP 178/72
[2020-08-03 07:16] LABS: BASO % 0.4 % (0.0-1.0); EOS # 0.2 10^3/uL (0.0-0.5); EOS % 3.7 % (0.0-3.0); HEMOGLOBIN 9.2 g/dl (13.5-17.5); LYMPH # 1.2 10^3/uL (1.5-5.0); LYMPH % 22.3 % (24.0-44.0); MEAN CORPUSCULAR HEMOGLOBIN 28.4 pg (27.0-33.0); MEAN CORPUSCULAR HGB CONC 29.7 g/dl (32.0-36.5); MEAN CORPUSCULAR VOLUME 95.7 fl (80.0-96.0); MONO # 0.7 10^3/uL (0.0-0.8); NEUTROPHILS # 3.1 10^3/uL (1.5-8.5); NEUTROPHILS % 60.2 % (36.0-66.0); PLATELET COUNT, AUTOMATED 221 10^3/uL (150-450); RED BLOOD COUNT 3.24 10^6/uL (4.30-6.10); WHITE BLOOD COUNT 5.2 10^3/uL (4.0-10.0)
[2020-08-03 07:41] LABS: ALBUMIN 2.4 GM/DL (3.2-5.2); ALT/SGPT 9 U/L (12-78); BILIRUBIN,TOTAL 0.4 MG/DL (0.2-1.0); BLOOD UREA NITROGEN 47 MG/DL (7-18); CALCIUM LEVEL 8.1 MG/DL (8.8-10.2); CARBON DIOXIDE LEVEL 28 MEQ/L (21-32); CHLORIDE LEVEL 101 MEQ/L (98-107); CREATININE FOR GFR 5.69 MG/DL (0.70-1.30); GLOMERULAR FILTRATION RATE 10.7 (>49); GLUCOSE, FASTING 144 MG/DL (70-100); SODIUM LEVEL 137 MEQ/L (136-145); TOTAL PROTEIN 6.2 GM/DL (6.4-8.2); TROPONIN I < 0.02 NG/ML (< 0.10)
[2020-08-03] MEDS ORDERED: ISOVUE-370 76% 100ML VIAL As Ordered ONE (07:52)
--- NOTE | 2020-08-03 08:18 | REP ---
INDICATION: RIGHT LATERAL CHEST TUBE. COMPARISON: Comparison portable chest x-ray August 01, 2020. TECHNIQUE: Portable upright AP chest radiograph. FINDINGS: A left-sided PICC line is in place. Its tip is in the expected location of superior vena cava. Oxygen delivery tubing is noted. There is increased density in the left lower lobe today obscuring left hemidiaphragm consistent with pleural effusion or left lower lobe infiltrate. The left chest tube noted on July 31, 2020 has been removed. There is some vascular congestion visible today. Mild cardiomegaly again noted unchanged.. IMPRESSION: Increased density in the left base behind the heart obscuring left hemidiaphragm. Question left pleural effusion versus infiltrate left lower lobe. Mild vascular congestion.. <Electronically signed by Julián Martinez > 08/03/20 [id number]
[2020-08-03] MEDS: LIDOCAINE 5% (LIDODERM) PATCH TD SCH (08:41)
[2020-08-03] MEDS: HumaLOG INSULIN (NovoLOG) PER UNIT SC SCH ×4 (08:41→21:00)
--- NOTE | 2020-08-03 08:42 | REP ---
INDICATION: h/o pe syncope. COMPARISON: Portable chest x-ray earlier this same date, chest CT dated 07/27/2020, chest CT dated 07/24/[address] angiography dated 07/23/2020 the TECHNIQUE: Chest CT with IV contrast, CT angiography. FINDINGS: There are no emboli in the pulmonary trunk or central pulmonary arteries. There are no emboli in the pulmonary artery lobar segment branches. The previous pericardial effusion has significantly decreased in size. Cardiac size is enlarged, unchanged. There is a small left pleural effusion. There is bibasilar atelectasis, worse in the left lower lobe. The thoracic aorta is unremarkable. There is limited visualization of the upper abdomen. The adrenals are unremarkable. The pancreas appears atrophic. This is unchanged. IMPRESSION: There are no pulmonary emboli. Small left pleural effusion. Bibasilar atelectasis, worse on the left. Cardiomegaly, unchanged. The previous pericardial effusion has significantly decreased. <Electronically signed by Mario Nazario > 08/03/20 [id number]
--- NOTE | 2020-08-03 10:09 | IPN ---
PROGRESS NOTE DATE: 08/03/2020 SUBJECTIVE: Patient is seen and examined at the bedside. Chart has been reviewed. He denies any chest pain, pressure, tightness, shortness of breath, lightheadedness, dizziness, fever, chills, or cough. Chest tube has been removed by Dr. Palomo. He has been medically stable for the past 48 hours. He continues to complain of back pain which is chronic and he does have as needed pain medications. He said that he had a syncopal episode yesterday twice when he could not be awakened for a few seconds, then came to, glucose level was normal. CT chest obtained showed no pulmonary embolism. Previous pericardial effusion has significantly decreased. OBJECTIVE: PHYSICAL EXAMINATION: Vital signs: Temperature 98.7, pulse 72, respiratory rate 14, blood pressure 178/72, 100% on 3 liters nasal cannula. Generally: Patient is awake, alert, oriented to person, place, and time, answering questions appropriately. No jugular venous distension (JVD), thyromegaly, or cervical lymphadenopathy. Moist mucous membranes. Lungs diminished without any rales. Heart: S1, S2, sinus rhythm. Abdomen: Obese, soft, nontender, nondistended. Extremities: Bilateral below-knee amputation (BKA). LABORATORY DATA: White count 5.2, hemoglobin 9, hematocrit 31, platelet count 221, sodium 137, potassium 5, chloride 101, bicarbonate 28, BUN 47, creatinine 5.79, glucose of 144, troponin less than 0.02. ASSESSMENT AND PLAN: This is a 69-year-old male, usually has dialysis in [place], end-stage renal disease on maintenance dialysis, admitted due to pericardial effusion requiring pericardial window and developed pneumomediastinum. CURRENT ISSUES: 1. Pericardial effusion status post pericardial window. 2. Left-sided pleural effusion secondary to fluid overload from end-stage renal disease on dialysis status post right thoracotomy tube which has been removed. 3. Hemorrhagic pericardial effusion secondary to Eliquis. 4. History of pulmonary embolism (PE) on chronic Eliquis discontinued due to recent hemorrhagic pleural effusion. Repeat CT chest has no pulmonary embolism (PE). 5. Hypertension, uncontrolled. 6. Peripheral vascular disease with bilateral below-knee amputation. 7. Complains of syncope times two today and yesterday. 8. Altered mental status with acute delirium secondary to opioids. 9. Esophagitis/gastritis with persistent abdominal discomfort found on EGD. 10. Pneumomediastinum secondary to pericardial window, resolved. No signs of perforated viscus on EGD. 11. BPH, chronic. 12. Depression, chronic. PLAN: Patient had complained of syncopal episode yesterday. Per nursing, patient came to very quickly. Patient will be placed back on telemetry. Will send for EEG. No prior history of seizure activity. Most likely due to possible arrhythmia. Repeat CT chest showed no pulmonary embolism (PE). He is still off of Eliquis due to recent hemorrhagic pericardial effusion. Repeat CT shows resolution of the pericardial effusion. He is on maintenance hemodialysis, to receive dialysis today. He is continued on all his other medications. If stable overnight, no issues on telemetry, EEG is negative, patient may be discharged home once his dialysis is confirmed by patient and family services ([facility]) and transportation has been arranged, as early as tomorrow. PARUL
[2020-08-03] MEDS ORDERED: DARBEPOETIN 200MCG/0.4ML *DIALYSIS* SYRINGE (J0882 PER 1MCG) IV SCH (10:15)
--- NOTE | 2020-08-03 12:08 | IPN ---
INPATIENT PROGRESS NOTE DATE: 08/03/2020 SUBJECTIVE: Mr. Andrade seen and examined this morning in the Hemodialysis Unit receiving a treatment which is uneventful. He no longer has a chest tube. He denies shortness of breath at rest and he states he feels more hungry and feels interested in food now. PHYSICAL EXAMINATION: Vital signs: Temperature 98.7, pulse 72, respiratory rate 14, blood pressure 178/72, saturating 100% on 3 liters nasal cannula. Intake yesterday was 1220. Urine yesterday was 600. Weight on the bed scale today was refused by the patient. General: Patient is seen awake, alert and oriented to person, place and time in the Hemodialysis Unit receiving his treatment. He is pale on exam, but in no distress. HEENT: Extraocular muscles are intact. Tongue is moist. Neck: Supple. Jugular veins are not elevated. Heart: Sounds are S1 and S2 sins. Lungs: Symmetric without crackles or rales. Abdomen: Soft and there are bowel sounds. Extremities: Bilateral below-knee amputations with trace dependent edema. Arterial venous access: His right arm fistula is presently in use. Skin: Pallor and is warm and dry. Neurologic: He is oriented and cooperative and conversational. LABORATORY DATA: White count 5.2, hemoglobin 9.2, platelets 221. Sodium 137, potassium 5, bicarbonate 28. IMAGING: CT angio done today showed small left pleural effusion, no pulmonary embolus and the previous pericardial effusion is significantly decreased in size. INPATIENT MEDICATIONS: Reviewed by myself and no changes noted as compared to yesterday. PROBLEMS/PLAN: 1. End-stage renal disease: On hemodialysis on a Monday, Monday, Monday schedule. The patient is being dialyzed today with goal fluid removal of 2.5 kg. He is receiving heparin free dialysis in view of recent hemorrhagic pericardial effusion. His volume status and electrolytes are acceptable. Continue with current dialysis prescription. 2. Left sided pleural effusion and recent hemorrhagic pericardial effusion: A repeat CT angiogram today is noted with much improvement noted in his effusions and he no longer has a chest tube and he was followed by thoracic surgery. Volume status regulated via HD principally. 3. Anemia related to end-stage renal failure: Patient continues on Aranesp and his hemoglobin is improving. I will get iron studies as well. 4. Hypertension: Blood pressures are acceptable on current regimen of carvedilol. MTDD
[2020-08-03] MEDS: HEPARIN SOD (PORCINE) 5000UNITS/ML 1ML VIAL/SYRINGE SQ SCH ×2 (12:49→21:13)
[2020-08-03] MEDS: oxyCODONE 5MG TAB PO PRN (12:49)
[2020-08-03 14:00] VITALS: BP 124/55
[2020-08-03 18:00] VITALS: BP 99/44
[2020-08-03 19:09] VITALS: BP 121/61
[2020-08-03] MEDS: **NOTE PATIENT COMMENT** MISC XX SCH ×2 (21:00)
[2020-08-03] MEDS: oxyCODONE 5MG TAB PO SCH (21:00)
[2020-08-03] MEDS: DONEPEZIL 5 MG TAB PO SCH (21:13)
[2020-08-03] MEDS: ATORVASTATIN 20 MG TAB PO SCH (21:13)
[2020-08-03 22:00] VITALS: BP 125/60
[2020-08-03] MEDS: ONDANSETRON 4MG/2ML VIAL IV PRN (23:10)
[2020-08-03] MEDS: SODIUM CHLORIDE 0.9% INJ 10 ML SYR IV PRN (23:10)
[2020-08-04] VITALS (7 sets, daily range): BP systolic 121–135; BP diastolic 52–66
[2020-08-04] MEDS: LEVALBUTEROL HFA 45MCG/ACT 15 GM INHALER INH SCH ×4 (02:00→19:42)
[2020-08-04] MEDS: oxyCODONE 5MG TAB PO SCH (02:10)
[2020-08-04] MEDS: SODIUM CHLORIDE 0.9% INJ 10 ML SYR IV SCH ×2 (06:00→18:29)
[2020-08-04] MEDS: LEVOTHYROXINE 25MCG TABLET (0.025MG) PO SCH (06:05)
[2020-08-04] MEDS: HEPARIN SOD (PORCINE) 5000UNITS/ML 1ML VIAL/SYRINGE SQ SCH ×2 (06:06→14:00)
[2020-08-04 06:24] LABS: BASO % 0.4 % (0.0-1.0); EOS # 0.2 10^3/uL (0.0-0.5); EOS % 5.2 % (0.0-3.0); HEMATOCRIT 29.5 % (42.0-52.0); HEMOGLOBIN 8.9 g/dl (13.5-17.5); LYMPH # 1.3 10^3/uL (1.5-5.0); MEAN CORPUSCULAR HEMOGLOBIN 27.9 pg (27.0-33.0); MEAN CORPUSCULAR HGB CONC 30.2 g/dl (32.0-36.5); MEAN CORPUSCULAR VOLUME 92.5 fl (80.0-96.0); MONO # 0.7 10^3/uL (0.0-0.8); MONO % 14.4 % (2.0-8.0); NEUTROPHILS # 2.4 10^3/uL (1.5-8.5); NEUTROPHILS % 51.8 % (36.0-66.0); PLATELET COUNT, AUTOMATED 204 10^3/uL (150-450); RED BLOOD COUNT 3.19 10^6/uL (4.30-6.10); WHITE BLOOD COUNT 4.7 10^3/uL (4.0-10.0)
[2020-08-04 06:46] LABS: CREATININE FOR GFR 4.19 MG/DL (0.70-1.30); GLOMERULAR FILTRATION RATE 15.2 (>49); POTASSIUM SERUM 4.6 MEQ/L (3.5-5.1)
[2020-08-04] MEDS: PANTOPRAZOLE 40MG TAB (PROTONIX) PO SCH (08:43)
[2020-08-04] MEDS: OLANZapine 5 MG TAB PO SCH (08:43)
[2020-08-04] MEDS: TAMSULOSIN 0.4 MG CAP PO SCH (08:43)
[2020-08-04] MEDS: SUCRALFATE 1 GM TAB PO SCH ×3 (08:43→17:30)
[2020-08-04] MEDS: MOM 30ML SUSPENSION UDC PO SCH (08:43)
[2020-08-04] MEDS: levETIRAcetam 250MG TABLET (KEPPRA) PO SCH (08:43)
[2020-08-04] MEDS: DOCUSATE SODIUM 100MG CAPSULE PO SCH (08:43)
[2020-08-04] MEDS: NEPHRO-VIT TAB (NEPHROCAPS) PO SCH (08:43)
[2020-08-04] MEDS: SERTRALINE HCL 50 MG TAB PO SCH (08:43)
[2020-08-04] MEDS: HumaLOG INSULIN (NovoLOG) PER UNIT SC SCH ×4 (08:44→23:23)
[2020-08-04] MEDS: LIDOCAINE 5% (LIDODERM) PATCH TD SCH (08:46)
[2020-08-04] MEDS: CARVedilol 6.25 MG TAB PO SCH (08:51)
[2020-08-04] MEDS: oxyCODONE 5MG TAB PO PRN (09:54)
[2020-08-04] MEDS ORDERED: OLAN5TAB PO (10:09)
[2020-08-04] MEDS ORDERED: SUCR1TA PO (10:09)
--- NOTE | 2020-08-04 12:39 | IPN ---
PROGRESS NOTE DATE: 08/04/2020 SUBJECTIVE: Patient seen and examined this morning at the bedside. He complains of pain with repositioning, and he complains of pain in his right stump He denies any shortness of breath at rest. He was dialyzed yesterday without any issue. There was 1500 mL of fluid removed. He remains afebrile and hemodynamically stable with stable oxygen requirements as well. Temperature 98.5, pulse 67, respiratory rate 20, blood pressure 129/54, saturating 99% on 2 liters nasal cannula. Dialysis yesterday removed 1.5 liters. GENERAL: Patient is seen lying in bed in no apparent distress. Extraocular muscles are intact. He is awake, alert, and oriented to person, place, and situation. He is answering questions appropriately. Nasal cannula is in place. Jugular veins are not elevated. Mucous membranes are moist. LUNGS: Sounds are symmetric without any rales or crackles. HEART: Sounds are regular, s1, S2. There is no edema in the dependent areas nor in the stumps. ABDOMEN: Soft and nontender. EXTREMITIES: Show bilateral below-knee amputations. NEUROLOGIC: He is at baseline mentation, awake, alert, and oriented. Today's laboratory studies show a white count 4.7, hemoglobin 8.9, platelets 204. Sodium 135, potassium 4.6, bicarbonate 28. INPATIENT MEDICATIONS: Reviewed by myself, and no change noted as compared to yesterday. He is back on heparin subcutaneous. PROBLEMS: 1. End-stage renal disease, on hemodialysis on Monday, Monday, Monday schedule. The patient was dialyzed yesterday with 1.5 liters of fluid removed. His volume status and electrolytes are acceptable. Continue current dialysis prescription. His fistula is in good use. 2. Anemia related to chronic renal failure. Hemoglobin is stable but suboptimal at 8.9. He continues on Aranesp with dialysis, and it will be monitored in the outpatient dialysis unit. 3. Hypertension. Blood pressures are acceptably controlled on the current regimen. Systolic is 120s to 140s. He is on carvedilol. 4. Left-sided pleural effusion and recent hemorrhagic pericardial effusion. His repeat CT angiogram from yesterday was noted with significant improvement in his effusions, and his volume status is regulated via dialysis and he is compensated.
--- NOTE | 2020-08-04 19:41 | IPNPDOC ---
Date Seen The patient was seen on 08/04/20. Progress Note SUBJECTIVE: Confused today for family, nursing and with some things for myself. He complained of chest pain anteriorly, repeat trop neg. Refused EEG on 08/03/20 and today refused ABG. HD stable, labs appear stable, afebrile, no increase in narcotic use. Repeat CT appears improved but patient states he feels more "short of breath today". 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 Moist mucous membranes. PULM: Lungs diminished without any rales. CHEST: Multiple well healing scars, scabbed lesions, tender to touch but no er ythema present CVS: S1, S2, sinus rhythm. no m/r/g GI: Obese, soft, nontender, nondistended. EXT: Bilateral below-knee amputation (BKA)., no swelling, pulses present and strong PSYCH: mood and affect appropriate LABORATORY DATA: Please see below MICROBIOLOGY: F/u UA, Bcx ASSESSMENT: This is a 69-year-old male, usually has dialysis in [place], end- stage renal disease on maintenance dialysis, admitted due to pericardial effusion requiring pericardial window and developed pneumomediastinum. PLAN: 1. AMS r/o delerium vs. infection ? vs. behavioral? vs. 2/2 to syncope events/ seizure event 08/03/20 2. Pericardial effusion status post pericardial window. 3. Left-sided pleural effusion secondary to fluid overload from end-stage renal disease on dialysis status post right thoracotomy tube which has been removed. 4. Hemorrhagic pericardial effusion secondary to Eliquis. 5. History of pulmonary embolism (PE) on chronic Eliquis discontinued due to recent hemorrhagic pleural effusion. Repeat CT chest has no pulmonary embolism (PE). 6. Hypertension, uncontrolled. 7. Peripheral vascular disease with bilateral below-knee amputation. 8. Altered mental status with acute delirium secondary to opioids. 9. Esophagitis/gastritis with persistent abdominal discomfort found on EGD. 10. Pneumomediastinum secondary to pericardial window, resolved. No signs of perforated viscus on EGD. 11. BPH, chronic. 12. Depression, chronic. PLAN: With recent syncope/? seizures possibly AMS is 2/2 to this? Patient has intermittent confusion per family, this is much different from baseline. This change in mental status is not medication induced as patient has not had new medications introduced to regimen. He has been more problematic today per nursing. At times cooperative, pleasant but other times can throw things in room, refusing labs, etc. He has been afebrile but will repeat UA, blood cultures. Patient has refused EEG on 08/03/20, refused ABG today. Trop neg. D iscussed with family. States that patient can get verbally aggressive but never throws things. can be confused at times but not like how he was today on phone. They are having brother come see in on 08/05/20 to talk with patient to see if this can help situation. Is compensated from dialysis/nephrology standpoint and when mental status improves, can go home with family with services. VS[facility]O Vital Signs Date Time Temp Pulse Resp B/P (MAP) Pulse Ox O2 Delivery O2 Flow Rate FiO2 08/04/20 18:00 98.7 63 16 127/52 (77) 100 Nasal Cannula 2.0 07/30/20 23:10 99 I&O- Last 24 Hours up to 6 AM 08/04/20 06:00 Intake Total 630 ml Output Total 1500 ml Balance -870 ml Laboratory Data 24H LABS Laboratory Tests 2 08/03/20 20:39: Bedside Glucose (Misc Panel) 98 08/04/20 06:04: Immature Granulocyte % (Auto) 0.2, Neutrophils (%) (Auto) 51.8, Lymphocytes (%) (Auto) 28.0, Monocytes (%) (Auto) 14.4H, Eosinophils (%) (Auto) 5.2H, Basophils (%) (Auto) 0.4, Neutrophils # (Auto) 2.4, Lymphocytes # (Auto) 1.3L, Monocytes # (Auto) 0.7, Eosinophils # (Auto) 0.2, Basophils # (Auto) 0.0, Nucleated Red Blood Cells % (auto) 0.0, Anion Gap 8, Glomerular Filtration Rate 15.2L, Calcium Level 8.0L 08/04/20 16:22: Bedside Glucose (Misc Panel) 106 CBC/BMP Laboratory Tests 08/04/20 06:04 Microbiology Microbiology 07/28/20 Acid Fast Stain, Received Pending 07/28/20 Mycobacterial Culture, Received Pending 07/28/20 Fungal Smear, Received Pending 07/28/20 Fungal Culture, Received Pending 07/28/20 Gram Stain - Final, Complete 07/28/20 Anaerobic Culture - Final, Complete 07/28/20 Body Fluid Culture - Final, Complete Current Medications Current Medications Medications (Trade) Dose Ordered Sig/Tesfaye Route PRN Reason Start Time Stop Time Status Last Admin Dose Admin Acetaminophen (Tylenol Tab) 650 mg Q4HP PRN PO PAIN OR FEVER 07/23/20 09:55 08/02/20 14:30 Atorvastatin Calcium (Lipitor) 80 mg QHS PO 07/23/20 21:00 08/03/20 21:13 Bisacodyl (Dulcolax Suppository) 10 mg Q4HP PRN PA CONSTIPATION 07/24/20 15:00 Carvedilol (COReg) 6.25 mg BID PO 07/23/20 21:00 08/04/20 08:51 Cetylpyridinium Chloride (Cepacol) 1 cristi Q1HP PRN PO COUGH 07/25/20 20:35 07/25/20 20:42 Darbepoetin Quang (Aranesp (Dialysis Use)) 200 mcg HD IV 07/26/20 22:15 07/27/20 15:05 DC Darbepoetin Quang (Aranesp (Dialysis Use)) 200 mcg HD IV 07/27/20 15:05 Cancel Darbepoetin Quang (Aranesp (Dialysis Use)) 200 mcg HD IV 07/27/20 15:15 08/03/20 10:14 DC 07/27/20 15:23 Darbepoetin Quang (Aranesp (Dialysis Use)) 200 mcg HD IV 08/03/20 10:15 08/03/20 10:24 Dextrose (Dextrose 50%) 25 ml ASDIRECTED PRN IV SEE LABEL COMMENTS 07/23/20 04:20 Dextrose/Sodium Chloride 1,000 ml @ 75 mls/hr [id number] IV 07/24/20 00:00 07/24/20 17:25 DC 07/24/20 00:12 Dextrose/Sodium Chloride 1,000 ml @ 75 mls/hr [id number] IV 07/24/20 15:00 UNV Docusate Sodium (Colace) 100 mg BID PO 07/24/20 21:00 08/04/20 08:43 Donepezil HCl (AriCEPT) 5 mg QHS PO 07/23/20 21:00 08/03/20 21:13 Ertapenem 0.5 gm/ Sodium Chloride 50 ml @ 100 mls/hr Q24H IV 07/23/20 16:00 08/02/20 11:58 DC 08/01/20 15:07 Ertapenem 1 gm/ Sodium Chloride 50 ml @ 100 mls/hr Q24H IV 07/23/20 11:40 07/23/20 12:21 DC Fentanyl Citrate (Sublimaze) 25 mcg Q5MP PRN IV PAIN LEVEL 5-10 07/24/20 15:15 07/24/20 16:15 DC Glucagon (Glucagon) 1 mg ASDIRECTED PRN SC SEE LABEL COMMENTS 07/23/20 04:20 Glucose (Glucose) 16 GM ASDIRECTED PRN PO SEE LABEL COMMENTS 07/23/20 04:20 Heparin Sodium (Heparin (Flush)) 200 units ASDIRECTED PRN IV SEE LABEL COMMENTS 07/25/20 17:00 08/03/20 23:10 Heparin Sodium (Heparin (Flush)) 200 units PICC IV 07/25/20 18:00 08/04/20 18:29 Heparin Sodium (Porcine) (Heparin) 5,000 units Q12H SC 07/24/20 21:00 07/25/20 22:15 DC 07/25/20 20:30 Heparin Sodium (Porcine) (Heparin) 5,000 units Q8H SQ 08/03/20 14:00 08/04/20 06:06 Home Med (Med Rec Complete!) ASDIRECTED XX 07/23/20 09:00 07/23/20 09:03 DC Hydromorphone HCl (Dilaudid) 0.5 mg Q5MP PRN IV PAIN LEVEL 4-7 07/24/20 15:15 07/24/20 16:15 DC 07/24/20 15:10 Insulin Human Lispro (HumaLOG INSULIN) SEE PROTOCOL TABLE AC SC 07/23/20 07:30 08/04/20 08:44 Insulin Human Lispro (HumaLOG INSULIN) SEE PROTOCOL TABLE QHS SC 07/23/20 21:00 Levalbuterol HCl (Xopenex Hfa) 2 puff Q4HP PRN INH SHORTNESS OF BREATH 07/23/20 13:30 07/26/20 01:03 Levalbuterol HCl (Xopenex Hfa) 2 puff RQ6H INH 07/23/20 14:00 08/04/20 13:19 Levalbuterol HCl (Xopenex Neb) 1.25 mg Q2HP PRN NEB WHEEZING 07/23/20 04:25 07/23/20 13:29 DC Levalbuterol HCl (Xopenex Neb) 1.25 mg RQ6H NEB 07/23/20 08:00 07/23/20 13:29 DC 07/23/20 07:34 Levetiracetam (Keppra) 500 mg BID PO 07/23/20 21:00 08/04/20 08:43 Levothyroxine Sodium (Synthroid) 25 mcg DAILY@0600 PO 07/24/20 06:00 08/04/20 06:05 Lidocaine (Lidoderm Patch) 1 patch DAILY TD 07/26/20 09:00 08/03/20 04:16 DC 08/02/20 09:33 Lidocaine (Lidoderm Patch) 2 patch DAILY TD 08/03/20 09:00 08/04/20 08:46 Lidocaine HCl (Lidocaine 1% Sdv) 0.5 ml ASDIRECTED PRN SC SEE LABEL COMMENTS 07/27/20 07:20 07/28/20 07:19 DC Lidocaine HCl (Lidocaine 1% Sdv) 0.5 ml ASDIRECTED PRN SC SEE LABEL COMMENTS 07/29/20 07:25 07/30/20 07:24 DC Lidocaine HCl (Lidocaine 1% Sdv) 0.5 ml ASDIRECTED PRN SC SEE LABEL COMMENTS 07/30/20 22:50 07/31/20 22:49 DC Lidocaine HCl (Lidocaine 1% Sdv) 0.5 ml ASDIRECTED PRN SC SEE LABEL COMMENTS 08/02/20 11:55 08/03/20 11:54 DC Magnesium Hydroxide (Milk Of Magnesia) 30 ml DAILY PO 07/24/20 09:00 08/04/20 08:43 Metoclopramide HCl (REGLAN INJection) 10 mg Q6HP PRN IV NAUSEA OR VOMITING 07/24/20 15:15 07/24/20 16:15 DC Midazolam HCl (Versed) 2 mg STAT STAT IV 07/28/20 14:12 07/28/20 14:15 DC 07/28/20 14:25 Miscellaneous (Unresolved Clarification Entry) SEE LABEL COMMENTS DAILY XX 07/31/20 09:00 07/31/20 15:13 DC 07/31/20 09:00 Naloxone HCl (Narcan) 0.1 mg Q5MP PRN IV RESP. RATE < 10 07/28/20 12:10 Naloxone HCl (Narcan) 0.4 mg STAT STAT IV 07/28/20 12:00 07/28/20 12:08 DC Non-Formulary Medication ( See Comment Field Below ) REMOVE LIDODERM PATCH DAILY@ XX 07/23/20 21:00 07/26/20 16:39 DC 07/23/20 21:00 Non-Formulary Medication ( See Comment Field Below ) REMOVE LIDODERM PATCH DAILY@ XX 07/26/20 21:00 08/02/20 20:35 Non-Formulary Medication ( See Comment Field Below ) REMOVE LIDODERM PATCH DAILY@ XX 08/03/20 21:00 Olanzapine (ZyPREXA) 5 mg BID PO 07/26/20 14:00 08/04/20 08:43 Ondansetron HCl (ZOFRAN INJection) 4 mg Q4HP PRN IV NAUSEA OR VOMITING 07/23/20 06:45 08/03/20 23:10 Ondansetron HCl (ZOFRAN INJection) 4 mg Q4HP PRN IV NAUSEA OR VOMITING 07/24/20 15:15 07/24/20 16:15 DC Oxycodone HCl (Roxicodone, Oxyir) 5 mg ASDIRECTED PRN PO PAIN LEVEL 1-4 07/24/20 15:15 07/24/20 16:15 DC Oxycodone HCl (Roxicodone, Oxyir) 10 mg BID PRN PO PAIN 07/23/20 10:40 07/28/20 12:10 DC 07/28/20 00:08 Oxycodone HCl (Roxicodone, Oxyir) 10 mg QHS PO 07/23/20 21:00 08/04/20 02:10 Oxycodone HCl (Roxicodone, Oxyir) 10 mg SuTuThSa@0900 PO 07/25/20 09:00 08/01/20 08:40 DC 07/30/20 10:06 Oxycodone HCl (Roxicodone, Oxyir) 10 mg SuTuThSa@0900 PRN PO PRN PAIN>5/10 ON PAIN SCALE 08/01/20 08:40 08/04/20 09:54 Oxycodone HCl (Roxicodone, Oxyir) 15 mg MoWeFr@0900 PO 07/24/20 09:00 08/01/20 08:40 DC 07/24/20 08:01 Oxycodone HCl (Roxicodone, Oxyir) 15 mg MoWeFr@0900 PRN PO >5/10 PAIN PRN MWF 9AM 08/01/20 08:40 Oxycodone/ Acetaminophen (Percocet 5mg/ 325mg Tablet) 1 tab Q4H PRN PO MODERATE PAIN (PS 5-7) 07/24/20 15:00 07/24/20 15:18 DC Oxycodone/ Acetaminophen (Percocet 5mg/ 325mg Tablet) 2 tab Q4H PRN PO SEVERE PAIN (PS 8-10) 07/24/20 15:00 07/24/20 15:18 DC Pantoprazole Sodium (Protonix) 40 mg DAILY PO 07/24/20 09:00 08/04/20 08:43 Polyethylene Glycol (Miralax) 1 pkt Q2D PO 07/24/20 09:00 08/03/20 06:23 Quetiapine Fumarate (SEROquel) 25 mg QHS PO 07/26/20 21:00 07/26/20 12:52 DC Sertraline HCl (Zoloft) 50 mg DAILY PO 07/24/20 09:00 08/04/20 08:43 Sodium Chloride 1,000 ml @ 30 mls/hr Q24H IV 07/24/20 15:15 07/24/20 16:15 DC 07/24/20 17:33 Sodium Chloride (Saline Lock Flush) 10 ml ASDIRECTED PRN IV SEE LABEL COMMENTS 07/25/20 17:00 08/03/20 23:10 Sodium Chloride (Saline Lock Flush) 10 ml PICC IV 07/25/20 18:00 08/04/20 18:29 Sucralfate (Carafate) 1 gm ACHS PO 08/02/20 12:00 08/04/20 08:43 Tamsulosin HCl (Flomax) 0.4 mg DAILY PO 07/24/20 09:00 08/04/20 08:43 Trazodone HCl (Desyrel) 50 mg QHS PO 07/23/20 21:00 07/28/20 12:01 DC 07/28/20 00:07 Vitamin B Complex/ Vit C/Folic Acid (Nephro-[facility] Rx) 1 tab DAILY PO 07/24/20 09:00 08/04/20 08:43 Allergies Coded Allergies: Penicillins (Verified Allergy, Unknown, 07/23/20) cephalexin (Verified Allergy, Unknown, 07/23/20) chocolate flavor (Verified Allergy, Unknown, 07/23/20) ketorolac (Verified Allergy, Unknown, 07/23/20) metformin (Verified Allergy, Unknown, 07/23/20) methadone (Verified Allergy, Unknown, 07/23/20) nalbuphine (Verified Allergy, Unknown, 07/23/20) tetracycline (Verified Allergy, Unknown, 07/23/20) Sarah Marie MD Aug 04, 2020 19:41
[2020-08-04] MEDS: **NOTE PATIENT COMMENT** MISC XX SCH (23:24)
[2020-08-05] VITALS (7 sets, daily range): BP systolic 100–148; BP diastolic 47–99
[2020-08-05] MEDS: DONEPEZIL 5 MG TAB PO SCH ×2 (00:30→21:04)
[2020-08-05] MEDS: DOCUSATE SODIUM 100MG CAPSULE PO SCH ×4 (00:30→21:04)
[2020-08-05] MEDS: SUCRALFATE 1 GM TAB PO SCH ×5 (00:30→21:04)
[2020-08-05] MEDS: ATORVASTATIN 20 MG TAB PO SCH ×2 (00:31→21:05)
[2020-08-05] MEDS: OLANZapine 5 MG TAB PO SCH ×4 (00:31→21:05)
[2020-08-05] MEDS: oxyCODONE 5MG TAB PO SCH ×2 (00:31→21:00)
[2020-08-05] MEDS: CARVedilol 6.25 MG TAB PO SCH (00:31)
[2020-08-05] MEDS: levETIRAcetam 250MG TABLET (KEPPRA) PO SCH ×4 (00:31→21:05)
[2020-08-05] MEDS: HEPARIN SOD (PORCINE) 5000UNITS/ML 1ML VIAL/SYRINGE SQ SCH ×4 (00:32→21:05)
[2020-08-05] MEDS: **NOTE PATIENT COMMENT** MISC XX SCH ×3 (00:32→20:43)
[2020-08-05] MEDS: ACETAMINOPHEN TAB 650MG DOSE (2X325MG) PO PRN ×2 (00:33→21:10)
[2020-08-05] MEDS: LEVALBUTEROL HFA 45MCG/ACT 15 GM INHALER INH SCH ×4 (01:06→20:47)
[2020-08-05 03:47] LABS: BLOOD UREA NITROGEN 42 MG/DL (7-18); CALCIUM LEVEL 7.6 MG/DL (8.8-10.2); CARBON DIOXIDE LEVEL 29 MEQ/L (21-32); CHLORIDE LEVEL 99 MEQ/L (98-107); GLUCOSE, FASTING 170 MG/DL (70-100); POTASSIUM SERUM 4.6 MEQ/L (3.5-5.1); SODIUM LEVEL 136 MEQ/L (136-145); TROPONIN I < 0.02 NG/ML (< 0.10)
[2020-08-05] MEDS: LEVOTHYROXINE 25MCG TABLET (0.025MG) PO SCH ×2 (06:00→06:42)
[2020-08-05] MEDS: SODIUM CHLORIDE 0.9% INJ 10 ML SYR IV SCH ×2 (06:43→18:01)
[2020-08-05] MEDS: MIRALAX *UNIT DOSE* 17GM PACKET PO SCH (06:45)
[2020-08-05] MEDS: MOM 30ML SUSPENSION UDC PO SCH ×2 (06:45→09:00)
[2020-08-05] MEDS: TAMSULOSIN 0.4 MG CAP PO SCH ×2 (06:45→09:00)
[2020-08-05] MEDS: PANTOPRAZOLE 40MG TAB (PROTONIX) PO SCH ×2 (06:45→09:00)
[2020-08-05] MEDS: NEPHRO-VIT TAB (NEPHROCAPS) PO SCH ×2 (06:45→09:00)
[2020-08-05] MEDS: SERTRALINE HCL 50 MG TAB PO SCH ×2 (06:45→09:00)
[2020-08-05] MEDS: SODIUM CHLORIDE 0.9% INJ 10 ML SYR IV PRN ×3 (06:47→23:40)
[2020-08-05] MEDS: HumaLOG INSULIN (NovoLOG) PER UNIT SC SCH ×4 (07:30→21:00)
[2020-08-05] MEDS ORDERED: LIDOCAINE 1% SDV 5ML VIAL SC PRN (07:40)
[2020-08-05] MEDS ORDERED: SODIUM CHLORIDE 0.9% 1000ML IV PRN (07:40)
[2020-08-05 08:58] LABS: HEMATOCRIT 28.2 % (42.0-52.0); HEMOGLOBIN 8.7 g/dl (13.5-17.5); MEAN CORPUSCULAR HEMOGLOBIN 28.3 pg (27.0-33.0); MEAN CORPUSCULAR HGB CONC 30.9 g/dl (32.0-36.5); MEAN CORPUSCULAR VOLUME 91.9 fl (80.0-96.0); PLATELET COUNT, AUTOMATED 223 10^3/uL (150-450); RED BLOOD COUNT 3.07 10^6/uL (4.30-6.10); WHITE BLOOD COUNT 4.3 10^3/uL (4.0-10.0)
[2020-08-05] MEDS: LIDOCAINE 5% (LIDODERM) PATCH TD SCH (09:00)
[2020-08-05] MEDS: CARVedilol 3.125 MG TAB PO SCH ×2 (09:00→21:44)
[2020-08-05 09:25] LABS: ALBUMIN 2.4 GM/DL (3.2-5.2); BILIRUBIN,TOTAL 0.3 MG/DL (0.2-1.0); CALCIUM LEVEL 7.9 MG/DL (8.8-10.2); CREATININE FOR GFR 4.88 MG/DL (0.70-1.30); GLOMERULAR FILTRATION RATE 12.7 (>49)
[2020-08-05] MEDS: ONDANSETRON 4MG/2ML VIAL IV PRN (10:50)
--- NOTE | 2020-08-05 17:26 | REP ---
INDICATION: re-eval effusions. COMPARISON: 08/03/2020 TECHNIQUE: Portable AP chest with the patient supine. FINDINGS: The opacification of the left costophrenic angle on the comparison study has improved. This may be a consequence of the patient being filmed supine or may represent improvement in the left effusion and lower lobe infiltrate. The remainder of the left lung is clear. Right lung is clear. Cardiac size normal. The right upper extremity PICC line is unchanged. There appears to be a vascular stent in the left upper extremity. IMPRESSION: Improvement in the left lung infiltrate/effusion versus positioning, the current study is performed with the patient supine. <Electronically signed by Mario Nazario > 08/05/20 [id number]
[2020-08-05] MEDS ORDERED: LevoFLOXacin IV 500 MG in IV 1 EA IV ONE (18:40)
--- NOTE | 2020-08-05 19:05 | IPNPDOC ---
Date Seen The patient was seen on 08/05/20. Progress Note SUBJECTIVE: UA +, started on levofloxacin renally dosed. CXR done today shows further improvement. Early this AM, evaluated in dialysis and was AAOx3, cooperative. Per nursing, after dialysis, patient was hallucinating in his room, seeing things that were not there. HD stable, afebrile, labs appear near baseline. OBJECTIVE: PHYSICAL EXAMINATION: VS: Please see below GENERAL: Answering questions appropriately, AAOx3 HEENT: PERRLA, AT/NC, EOM intact NECK: No jugular venous distension (JVD), thyromegaly, or cervical lymphadenopathy. Moist mucous membranes. PULM: Lungs diminished without any rales. CHEST: Multiple well healing scars, scabbed lesions, tender to touch but no erythema present CVS: S1, S2, sinus rhythm. no m/r/g GI: Obese, soft, nontender, nondistended. EXT: Bilateral below-knee amputation (BKA)., no swelling, pulses present and strong PSYCH: mood and affect appropriate LABORATORY DATA: Please see below MICROBIOLOGY: UA +, f/u UCx and Blood cultures ASSESSMENT: This is a 69-year-old male ESRD on HD admitted due to pericardial effusion requiring pericardial window and developed pneumomediastinum. PLAN: 1. Delerium possibly 2/2 to UTI 2. Pericardial effusion status post pericardial window. 3. Left-sided pleural effusion secondary to fluid overload from end-stage renal disease on dialysis status post right thoracotomy tube which has been removed. 4. Hemorrhagic pericardial effusion secondary to Eliquis. 5. History of pulmonary embolism (PE) on chronic Eliquis discontinued due to recent hemorrhagic pleural effusion. Repeat CT chest has no pulmonary embolism (PE). 6. Hypertension 7. Peripheral vascular disease with bilateral below-knee amputation. 8. Altered mental status with acute delirium secondary to opioids. 9. Esophagitis/gastritis with persistent abdominal discomfort found on EGD. 10. Pneumomediastinum secondary to pericardial window, resolved. No signs of perforated viscus on EGD. 11. BPH, chronic. 12. Depression, chronic. 13. Hx of seizures 14. ESRD on HD PLAN: Started levofloxacin today for UTI with UcX pending. Hopefully this will show some improvement in delerium, mental status changes that are intermittent. Other labs appear to be close to baseline. CXR done today appear better than prior imaging. Plan is still home with family when medically improved. VS, I&O, 24H, Fishbone Vital Signs/I&O Vital Signs Date Time Temp Pulse Resp B/P (MAP) Pulse Ox O2 Delivery O2 Flow Rate FiO2 08/05/20 14:00 98.5 75 18 148/99 (115) 94 Nasal Cannula 2.0 07/30/20 23:10 99 I&O- Last 24 Hours up to 6 AM 08/05/20 06:00 Intake Total 600 ml Balance 600 ml Laboratory Data 24H LABS Laboratory Tests 2 08/04/20 20:41: Bedside Glucose (Misc Panel) 115 08/05/20 02:49: Anion Gap 8, Glomerular Filtration Rate 13.0L, Calcium Level 7.6L, Troponin I < 0.02 08/05/20 08:25: Anion Gap 7L, Glomerular Filtration Rate 12.7L, Calcium Level 7.9L, Nucleated Red Blood Cells % (auto) 0.0, Lactic Acid Level 1.7, Total Bilirubin 0.3, Aspartate Amino Transf (AST/SGOT) 17, Alanine Aminotransferase (ALT/SGPT) 8L, Alkaline Phosphatase 95, Total Protein 6.0L, Albumin 2.4L, Albumin/Globulin Ratio 0.7 08/05/20 15:52: Urine Color YELLOW, Urine Appearance HAZY, Urine pH 8.0, Urine Specific [place] 1.009, Urine Protein 3+H, Urine Glucose (UA) 2+H, Urine Ketones NEGATIVE, Urine Blood 1+H, Urine Nitrite NEGATIVE, Urine Bilirubin NEGATIVE, Urine Urobilinogen 0.2, Urine Leukocyte Esterase 3+H, Urine WBC (Auto) 100H, Urine RBC (Auto) 2, Urine Hyaline Casts (Auto) 0, Urine Bacteria (Auto) NEGATIVE, Urine Squamous Epithelial Cells 0, Urine Sperm (Auto) 08/05/20 16:37: Bedside Glucose (Misc Panel) 183H CBC/BMP Laboratory Tests 08/05/20 02:49 08/05/20 08:25 Microbiology Microbiology 08/05/20 Urine Culture, Received Pending 08/05/20 Blood Culture, Received Pending 08/05/20 Blood Culture, Received Pending 07/28/20 Acid Fast Stain, Received Pending 07/28/20 Mycobacterial Culture, Received Pending 07/28/20 Fungal Smear, Received Pending 07/28/20 Fungal Culture, Received Pending 07/28/20 Gram Stain - Final, Complete 07/28/20 Anaerobic Culture - Final, Complete 07/28/20 Body Fluid Culture - Final, Complete Current Medications Current Medications Medications (Trade) Dose Ordered Sig/Tesfaye Route PRN Reason Start Time Stop Time Status Last Admin Dose Admin Acetaminophen (Tylenol Tab) 650 mg Q4HP PRN PO PAIN OR FEVER 07/23/20 09:55 08/05/20 00:33 Atorvastatin Calcium (Lipitor) 80 mg QHS PO 07/23/20 21:00 08/05/20 00:31 Bisacodyl (Dulcolax Suppository) 10 mg Q4HP PRN OK CONSTIPATION 07/24/20 15:00 Carvedilol (COReg) 3.125 mg BID PO 08/05/20 09:00 Carvedilol (COReg) 6.25 mg BID PO 07/23/20 21:00 08/05/20 11:09 DC 08/05/20 00:31 Cetylpyridinium Chloride (Cepacol) 1 cristi Q1HP PRN PO COUGH 07/25/20 20:35 07/25/20 20:42 Darbepoetin Quang (Aranesp (Dialysis Use)) 200 mcg HD IV 07/26/20 22:15 07/27/20 15:05 DC Darbepoetin Quang (Aranesp (Dialysis Use)) 200 mcg HD IV 07/27/20 15:05 Cancel Darbepoetin Quang (Aranesp (Dialysis Use)) 200 mcg HD IV 07/27/20 15:15 08/03/20 10:14 DC 07/27/20 15:23 Darbepoetin Quang (Aranesp (Dialysis Use)) 200 mcg HD IV 08/03/20 10:15 08/03/20 10:24 Dextrose (Dextrose 50%) 25 ml ASDIRECTED PRN IV SEE LABEL COMMENTS 07/23/20 04:20 Dextrose/Sodium Chloride 1,000 ml @ 75 mls/hr [id number] IV 07/24/20 00:00 07/24/20 17:25 DC 07/24/20 00:12 Dextrose/Sodium Chloride 1,000 ml @ 75 mls/hr [id number] IV 07/24/20 15:00 UNV Docusate Sodium (Colace) 100 mg BID PO 07/24/20 21:00 08/05/20 00:30 Donepezil HCl (AriCEPT) 5 mg QHS PO 07/23/20 21:00 08/05/20 00:30 Ertapenem 0.5 gm/ Sodium Chloride 50 ml @ 100 mls/hr Q24H IV 07/23/20 16:00 08/02/20 11:58 DC 08/01/20 15:07 Ertapenem 1 gm/ Sodium Chloride 50 ml @ 100 mls/hr Q24H IV 07/23/20 11:40 07/23/20 12:21 DC Fentanyl Citrate (Sublimaze) 25 mcg Q5MP PRN IV PAIN LEVEL 5-10 07/24/20 15:15 07/24/20 16:15 DC Glucagon (Glucagon) 1 mg ASDIRECTED PRN SC SEE LABEL COMMENTS 07/23/20 04:20 Glucose (Glucose) 16 GM ASDIRECTED PRN PO SEE LABEL COMMENTS 07/23/20 04:20 Heparin Sodium (Heparin (Flush)) 200 units ASDIRECTED PRN IV SEE LABEL COMMENTS 07/25/20 17:00 08/05/20 06:48 Heparin Sodium (Heparin (Flush)) 200 units PICC IV 07/25/20 18:00 08/05/20 18:01 Heparin Sodium (Porcine) (Heparin) 5,000 units Q12H SC 07/24/20 21:00 07/25/20 22:15 DC 07/25/20 20:30 Heparin Sodium (Porcine) (Heparin) 5,000 units Q8H SQ 08/03/20 14:00 08/05/20 15:16 Home Med (Med Rec Complete!) ASDIRECTED XX 07/23/20 09:00 07/23/20 09:03 DC Hydromorphone HCl (Dilaudid) 0.5 mg Q5MP PRN IV PAIN LEVEL 4-7 07/24/20 15:15 07/24/20 16:15 DC 07/24/20 15:10 Insulin Human Lispro (HumaLOG INSULIN) SEE PROTOCOL TABLE AC SC 07/23/20 07:30 08/05/20 18:00 Insulin Human Lispro (HumaLOG INSULIN) SEE PROTOCOL TABLE QHS SC 07/23/20 21:00 Levalbuterol HCl (Xopenex Hfa) 2 puff Q4HP PRN INH SHORTNESS OF BREATH 07/23/20 13:30 07/26/20 01:03 Levalbuterol HCl (Xopenex Hfa) 2 puff RQ6H INH 07/23/20 14:00 08/05/20 07:13 Levalbuterol HCl (Xopenex Neb) 1.25 mg Q2HP PRN NEB WHEEZING 07/23/20 04:25 07/23/20 13:29 DC Levalbuterol HCl (Xopenex Neb) 1.25 mg RQ6H NEB 07/23/20 08:00 07/23/20 13:29 DC 07/23/20 07:34 Levetiracetam (Keppra) 500 mg BID PO 07/23/20 21:00 08/05/20 00:31 Levothyroxine Sodium (Synthroid) 25 mcg DAILY@0600 PO 07/24/20 06:00 08/04/20 06:05 Lidocaine (Lidoderm Patch) 1 patch DAILY TD 07/26/20 09:00 08/03/20 04:16 DC 08/02/20 09:33 Lidocaine (Lidoderm Patch) 2 patch DAILY TD 08/03/20 09:00 08/04/20 08:46 Lidocaine HCl (Lidocaine 1% Sdv) 0.5 ml ASDIRECTED PRN SC SEE LABEL COMMENTS 07/27/20 07:20 07/28/20 07:19 DC Lidocaine HCl (Lidocaine 1% Sdv) 0.5 ml ASDIRECTED PRN SC SEE LABEL COMMENTS 07/29/20 07:25 07/30/20 07:24 DC Lidocaine HCl (Lidocaine 1% Sdv) 0.5 ml ASDIRECTED PRN SC SEE LABEL COMMENTS 07/30/20 22:50 07/31/20 22:49 DC Lidocaine HCl (Lidocaine 1% Sdv) 0.5 ml ASDIRECTED PRN SC SEE LABEL COMMENTS 08/02/20 11:55 08/03/20 11:54 DC Lidocaine HCl (Lidocaine 1% Sdv) 0.5 ml ASDIRECTED PRN SC SEE LABEL COMMENTS 08/05/20 07:40 08/06/20 07:39 Magnesium Hydroxide (Milk Of Magnesia) 30 ml DAILY PO 07/24/20 09:00 08/04/20 08:43 Metoclopramide HCl (REGLAN INJection) 10 mg Q6HP PRN IV NAUSEA OR VOMITING 07/24/20 15:15 07/24/20 16:15 DC Midazolam HCl (Versed) 2 mg STAT STAT IV 07/28/20 14:12 07/28/20 14:15 DC 07/28/20 14:25 Miscellaneous (Unresolved Clarification Entry) SEE LABEL COMMENTS DAILY XX 07/31/20 09:00 07/31/20 15:13 DC 07/31/20 09:00 Naloxone HCl (Narcan) 0.1 mg Q5MP PRN IV RESP. RATE < 10 07/28/20 12:10 Naloxone HCl (Narcan) 0.4 mg STAT STAT IV 07/28/20 12:00 07/28/20 12:08 DC Non-Formulary Medication ( See Comment Field Below ) REMOVE LIDODERM PATCH DAILY@ XX 07/23/20 21:00 07/26/20 16:39 DC 07/23/20 21:00 Non-Formulary Medication ( See Comment Field Below ) REMOVE LIDODERM PATCH DAILY@ XX 07/26/20 21:00 08/04/20 23:24 Non-Formulary Medication ( See Comment Field Below ) REMOVE LIDODERM PATCH DAILY@ XX 08/03/20 21:00 08/05/20 00:32 Olanzapine (ZyPREXA) 5 mg BID PO 07/26/20 14:00 08/05/20 00:31 Ondansetron HCl (ZOFRAN INJection) 4 mg Q4HP PRN IV NAUSEA OR VOMITING 07/23/20 06:45 08/03/20 23:10 Ondansetron HCl (ZOFRAN INJection) 4 mg Q4HP PRN IV NAUSEA OR VOMITING 07/24/20 15:15 07/24/20 16:15 DC Oxycodone HCl (Roxicodone, Oxyir) 5 mg ASDIRECTED PRN PO PAIN LEVEL 1-4 07/24/20 15:15 07/24/20 16:15 DC Oxycodone HCl (Roxicodone, Oxyir) 10 mg BID PRN PO PAIN 07/23/20 10:40 07/28/20 12:10 DC 07/28/20 00:08 Oxycodone HCl (Roxicodone, Oxyir) 10 mg QHS PO 07/23/20 21:00 08/04/20 02:10 Oxycodone HCl (Roxicodone, Oxyir) 10 mg SuTuThSa@0900 PO 07/25/20 09:00 08/01/20 08:40 DC 07/30/20 10:06 Oxycodone HCl (Roxicodone, Oxyir) 10 mg SuTuThSa@0900 PRN PO PRN PAIN>5/10 ON PAIN SCALE 08/01/20 08:40 08/04/20 09:54 Oxycodone HCl (Roxicodone, Oxyir) 15 mg MoWeFr@0900 PO 07/24/20 09:00 08/01/20 08:40 DC 07/24/20 08:01 Oxycodone HCl (Roxicodone, Oxyir) 15 mg MoWeFr@0900 PRN PO >5/10 PAIN PRN MWF 9AM 08/01/20 08:40 Oxycodone/ Acetaminophen (Percocet 5mg/ 325mg Tablet) 1 tab Q4H PRN PO MODERATE PAIN (PS 5-7) 07/24/20 15:00 07/24/20 15:18 DC Oxycodone/ Acetaminophen (Percocet 5mg/ 325mg Tablet) 2 tab Q4H PRN PO SEVERE PAIN (PS 8-10) 07/24/20 15:00 07/24/20 15:18 DC Pantoprazole Sodium (Protonix) 40 mg DAILY PO 07/24/20 09:00 08/04/20 08:43 Polyethylene Glycol (Miralax) 1 pkt Q2D PO 07/24/20 09:00 08/05/20 06:45 Quetiapine Fumarate (SEROquel) 25 mg QHS PO 07/26/20 21:00 07/26/20 12:52 DC Sertraline HCl (Zoloft) 50 mg DAILY PO 07/24/20 09:00 08/04/20 08:43 Sodium Chloride 1,000 ml @ 30 mls/hr Q24H IV 07/24/20 15:15 07/24/20 16:15 DC 07/24/20 17:33 Sodium Chloride (Nacl 0.9%) 200 ml ASDIRECTED PRN IV SEE LABEL COMMENTS 08/05/20 07:40 08/06/20 07:39 Sodium Chloride (Saline Lock Flush) 10 ml ASDIRECTED PRN IV SEE LABEL COMMENTS 07/25/20 17:00 08/05/20 06:47 Sodium Chloride (Saline Lock Flush) 10 ml PICC IV 07/25/20 18:00 08/05/20 18:01 Sucralfate (Carafate) 1 gm ACHS PO 08/02/20 12:00 08/05/20 18:01 Tamsulosin HCl (Flomax) 0.4 mg DAILY PO 07/24/20 09:00 08/04/20 08:43 Trazodone HCl (Desyrel) 50 mg QHS PO 07/23/20 21:00 07/28/20 12:01 DC 07/28/20 00:07 Vitamin B Complex/ Vit C/Folic Acid (Nephro-Aubree Rx) 1 tab DAILY PO 07/24/20 09:00 08/04/20 08:43 Allergies Coded Allergies: Penicillins (Verified Allergy, Unknown, 07/23/20) cephalexin (Verified Allergy, Unknown, 07/23/20) chocolate flavor (Verified Allergy, Unknown, 07/23/20) ketorolac (Verified Allergy, Unknown, 07/23/20) metformin (Verified Allergy, Unknown, 07/23/20) methadone (Verified Allergy, Unknown, 07/23/20) nalbuphine (Verified Allergy, Unknown, 07/23/20) tetracycline (Verified Allergy, Unknown, 07/23/20) Sarah Marie MD Aug 05, 2020 19:04
[2020-08-06] MEDS: LEVALBUTEROL HFA 45MCG/ACT 15 GM INHALER INH SCH ×4 (00:57→19:42)
[2020-08-06] MEDS: ONDANSETRON 4MG/2ML VIAL IV PRN ×3 (02:20→22:41)
[2020-08-06] MEDS: SODIUM CHLORIDE 0.9% INJ 10 ML SYR IV PRN ×3 (02:21→22:42)
[2020-08-06] MEDS: ACETAMINOPHEN TAB 650MG DOSE (2X325MG) PO PRN ×2 (02:21→22:43)
[2020-08-06 06:00] VITALS: BP 128/52
[2020-08-06] MEDS: HEPARIN SOD (PORCINE) 5000UNITS/ML 1ML VIAL/SYRINGE SQ SCH ×3 (06:40→22:42)
[2020-08-06] MEDS: SODIUM CHLORIDE 0.9% INJ 10 ML SYR IV SCH ×2 (06:40→17:35)
[2020-08-06] MEDS: LEVOTHYROXINE 25MCG TABLET (0.025MG) PO SCH (06:40)
[2020-08-06 07:17] LABS: HEMATOCRIT 28.4 % (42.0-52.0); HEMOGLOBIN 8.6 g/dl (13.5-17.5); MEAN CORPUSCULAR HEMOGLOBIN 28.3 pg (27.0-33.0); MEAN CORPUSCULAR HGB CONC 30.3 g/dl (32.0-36.5); MEAN CORPUSCULAR VOLUME 93.4 fl (80.0-96.0); PLATELET COUNT, AUTOMATED 213 10^3/uL (150-450); RED BLOOD COUNT 3.04 10^6/uL (4.30-6.10); WHITE BLOOD COUNT 4.6 10^3/uL (4.0-10.0)
[2020-08-06 07:39] LABS: ALBUMIN 2.8 GM/DL (3.2-5.2); BILIRUBIN,TOTAL 0.3 MG/DL (0.2-1.0); CALCIUM LEVEL 8.2 MG/DL (8.8-10.2); CREATININE FOR GFR 3.39 MG/DL (0.70-1.30); GLOMERULAR FILTRATION RATE 19.4 (>49); POTASSIUM SERUM 4.4 MEQ/L (3.5-5.1); TOTAL PROTEIN 6.4 GM/DL (6.4-8.2)
[2020-08-06] MEDS: SUCRALFATE 1 GM TAB PO SCH ×4 (08:11→22:40)
[2020-08-06] MEDS: HumaLOG INSULIN (NovoLOG) PER UNIT SC SCH ×4 (08:12→22:08)
[2020-08-06] MEDS: DOCUSATE SODIUM 100MG CAPSULE PO SCH ×2 (08:12→22:40)
[2020-08-06] MEDS: SERTRALINE HCL 50 MG TAB PO SCH (08:13)
[2020-08-06] MEDS: TAMSULOSIN 0.4 MG CAP PO SCH (08:13)
[2020-08-06] MEDS: MOM 30ML SUSPENSION UDC PO SCH (08:13)
[2020-08-06] MEDS: PANTOPRAZOLE 40MG TAB (PROTONIX) PO SCH (08:13)
[2020-08-06] MEDS: levETIRAcetam 250MG TABLET (KEPPRA) PO SCH ×2 (08:13→22:41)
[2020-08-06] MEDS: NEPHRO-VIT TAB (NEPHROCAPS) PO SCH (08:13)
[2020-08-06] MEDS: OLANZapine 5 MG TAB PO SCH ×2 (08:30→22:46)
[2020-08-06] MEDS: CARVedilol 3.125 MG TAB PO SCH ×2 (08:30→22:41)
[2020-08-06] MEDS: LIDOCAINE 5% (LIDODERM) PATCH TD SCH (08:32)
--- NOTE | 2020-08-06 10:25 | REP ---
INDICATION: increased abd pain, r/o acute pathology COMPARISON: CT chest 08/03/2020. TECHNIQUE: CT Scan of the abdomen was performed without intravenous contrast. Sagittal and coronal reconstruction images performed. FINDINGS: Lung bases: There is a small left pleural effusion. There are bibasilar patchy parenchymal opacities representing atelectasis or infiltrate, left greater than the right, which are unchanged. There is mild cardiomegaly. There is a small amount of pericardial fluid or thickening unchanged. There is a stable superficial hematoma along the right anterior pericardium which extends into the midline of the upper abdominal wall. Liver: Grossly unremarkable. Gallbladder: Prior cholecystectomy. Spleen: Grossly unremarkable. Adrenals: Normal. Pancreas: There are scattered pancreatic calcifications compatible with chronic pancreatitis. Kidneys: There is thinning of the renal cortex bilaterally without hydronephrosis. Small and large bowel: Unremarkable. No bowel wall thickening is seen. There is no evidence for bowel obstruction. Free fluid: None. Abdominal aorta: No aneurysm or dissection. Adenopathy: None. Osseous structures: There are degenerative changes of the spine without compression deformity. IMPRESSION: Stable findings in the lung bases. Small amount of pericardial fluid or thickening unchanged. Stable superficial hematoma along the right anterior pericardium extending into the midline of the upper abdominal wall. No acute findings are seen in the abdomen. <Electronically signed by Mario Varghese > 08/06/20 1022
--- NOTE | 2020-08-06 12:53 | IPN ---
PROGRESS NOTE DATE: 08/06/2020 Mr. Andrade is seen this morning on his bedside. He is complaining of pain at his surgical site. He denies any nausea and vomiting and reports eating well. He denies any dyspnea or chest pain. He was dialyzed yesterday, which he tolerated well. PHYSICAL EXAMINATION: Temperature 97.4 degrees Fahrenheit, heart rate 70 per minute, respiratory rate 16 per minute, blood pressure 120/58 mmHg, and oxygen saturation 99% on 2 liters oxygen. His head is atraumatic. Neck supple and without jugular venous distention (JVD) or thyroid enlargement. Heart sounds are regular, and there is no audible pericardial friction rub. Lungs with diminished breath sounds at dependent parts. Abdomen is soft, and old surgical scars are healed. Bowel sounds are normal. He has a dressing on the left chest. Extremities show no cyanosis or clubbing. Right arm arteriovenous (AV) graft is patent. He had bilateral below-knee amputations previously. Neurologically he is at his baseline mentation without a focal deficit. Today's labs show WBC count 4.6, hemoglobin 8.6, hematocrit 28.4, platelets 213. Sodium 140, potassium 4.4, CO2 of 30, BUN 31, and creatinine 33.9. Glucose 109 and calcium 8.2. PROBLEMS: 1. End-stage renal disease. Patient was dialyzed yesterday, and we will plan to dialyze him again tomorrow. His electrolytes are stable, and he is very well dialyzed. There is no emergent need for dialysis today. 2. Congestive heart failure, pleural effusion, and pericardial effusion. Clinically his volume status is well compensated. His pleural and pericardial fluids have been removed. At this point we will continue to manage his volume status with three times a week dialysis. 3. Anemia. Anemia is stable at this point, and we will continue with weekly dose of Aranesp. No urgent need for a transfusion.
--- NOTE | 2020-08-06 13:41 | IPNPDOC ---
Date Seen The patient was seen on 08/06/20. Progress Note SUBJECTIVE: Abdominal pain of RUQ present, CT abd/pelvis showed stable findings, no new pathology or acute findings. On levofloxacin for UTI. All labs appear stable. AAOx3, cooperative. OBJECTIVE: PHYSICAL EXAMINATION: VS: Please see below GENERAL: Answering questions appropriately, AAOx3 HEENT: PERRLA, AT/NC, EOM intact NECK: No jugular venous distension (JVD), thyromegaly, or cervical lymphadenopathy. Moist mucous membranes. PULM: Lungs diminished without any rales. CHEST: Multiple well healing scars, scabbed lesions, tender to touch but no erythema present CVS: S1, S2, sinus rhythm. no m/r/g GI: tenderness of RUQ without organomegaly, bruising. Obese, soft, nondistended. EXT: Bilateral below-knee amputation (BKA)., no swelling, pulses present and strong PSYCH: mood and affect appropriate LABORATORY DATA: Please see below MICROBIOLOGY: UA +, f/u UCx Blood cultures NG to date IMAGING: CT abd/pelvis: Stable findings in the lung bases. Small amount of pericardial fluid or thickening unchanged. Stable superficial hematoma along the right anterior per icardium extending into the midline of the upper abdominal wall. No acute findings are seen in the abdomen. ASSESSMENT: This is a 69-year-old male ESRD on HD admitted due to pericardial effusion requiring pericardial window and developed pneumomediastinum. PLAN: 1. Delerium possibly 2/2 to UTI vs. intermittent confusion/delerium from prolonged hospital stay 2. Pericardial effusion status post pericardial window. 3. Left-sided pleural effusion secondary to fluid overload from end-stage renal disease on dialysis status post right thoracotomy tube which has been removed. 4. Hemorrhagic pericardial effusion secondary to Eliquis. 5. History of pulmonary embolism (PE) on chronic Eliquis discontinued due to recent hemorrhagic pleural effusion. Repeat CT chest has no pulmonary embolism (PE). 6. Right upper quadrant abdominal pain 2/2 to unknown etiology 7. Musculoskeletal chest pain likely 2/2 to recent surgery, intermittent 8. Altered mental status with acute delirium secondary to opioids. 9. Esophagitis/gastritis with persistent abdominal discomfort found on EGD. 10. Pneumomediastinum secondary to pericardial window, resolved. No signs of perforated viscus on EGD. 11. BPH, chronic. 12. Depression, chronic. 13. Hx of seizures 14. ESRD on HD 15. Hypertension 16. Peripheral vascular disease with bilateral below-knee amputation. PLAN: RUQ pain persists but CT abd/pelvis neg for acute pathology, all labs wnl. UCx pending. AAOx 3. Plan is still home with family when medically improved, hopefully in next 24 hours. VS, I&O, 24H, Fishbone Vital Signs/I&O Vital Signs Date Time Temp Pulse Resp B/P (MAP) Pulse Ox O2 Delivery O2 Flow Rate FiO2 08/06/20 09:00 2.0 08/06/20 08:30 70 120/58 08/06/20 06:00 97.4 16 99 Nasal Cannula I&O- Last 24 Hours up to 6 AM 08/06/20 06:00 Intake Total 1460.0 ml Output Total 1650 ml Balance -190.0 ml Laboratory Data 24H LABS Laboratory Tests 2 08/05/20 15:52: Urine Color YELLOW, Urine Appearance HAZY, Urine pH 8.0, Urine Specific [place] 1.009, Urine Protein 3+H, Urine Glucose (UA) 2+H, Urine Ketones NEGATIVE, Urine Blood 1+H, Urine Nitrite NEGATIVE, Urine Bilirubin NEGATIVE, Urine Urobilinogen 0.2, Urine Leukocyte Esterase 3+H, Urine WBC (Auto) 100H, Urine RBC (Auto) 2, Urine Hyaline Casts (Auto) 0, Urine Bacteria (Auto) NEGATIVE, Urine Squamous Epithelial Cells 0, Urine Sperm (Auto) 08/05/20 16:37: Bedside Glucose (Misc Panel) 183H 08/05/20 21:02: Bedside Glucose (Misc Panel) 220H 08/06/20 06:49: Nucleated Red Blood Cells % (auto) 0.0, Anion Gap 7L, Glomerular Filtration Rate 19.4L, Calcium Level 8.2L, Total Bilirubin 0.3, Aspartate Amino Transf (AST/SGOT) 13, Alanine Aminotransferase (ALT/SGPT) 8L, Alkaline Phosphatase 95, Total Protein 6.4, Albumin 2.8L, Albumin/Globulin Ratio 0.8 CBC/BMP Laboratory Tests 08/06/20 06:49 Microbiology Microbiology 08/05/20 Urine Culture, Received Pending 08/05/20 Blood Culture - Preliminary, Resulted No growth after 24 hours . All specim... 08/05/20 Blood Culture - Preliminary, Resulted No growth after 24 hours . All specim... 07/28/20 Acid Fast Stain, Received Pending 07/28/20 Mycobacterial Culture, Received Pending 07/28/20 Fungal Smear, Received Pending 07/28/20 Fungal Culture, Received Pending 07/28/20 Gram Stain - Final, Complete 07/28/20 Anaerobic Culture - Final, Complete 07/28/20 Body Fluid Culture - Final, Complete Current Medications Current Medications Medications (Trade) Dose Ordered Sig/Tesfaye Route PRN Reason Start Time Stop Time Status Last Admin Dose Admin Acetaminophen (Tylenol Tab) 650 mg Q4HP PRN PO PAIN OR FEVER 07/23/20 09:55 08/06/20 02:21 Atorvastatin Calcium (Lipitor) 80 mg QHS PO 07/23/20 21:00 08/05/20 21:05 Bisacodyl (Dulcolax Suppository) 10 mg Q4HP PRN [place] CONSTIPATION 07/24/20 15:00 Carvedilol (COReg) 3.125 mg BID PO 08/05/20 09:00 08/06/20 08:30 Carvedilol (COReg) 6.25 mg BID PO 07/23/20 21:00 08/05/20 11:09 DC 08/05/20 00:31 Cetylpyridinium Chloride (Cepacol) 1 cristi Q1HP PRN PO COUGH 07/25/20 20:35 07/25/20 20:42 Darbepoetin Quang (Aranesp (Dialysis Use)) 200 mcg HD IV 07/26/20 22:15 07/27/20 15:05 DC Darbepoetin Quang (Aranesp (Dialysis Use)) 200 mcg HD IV 07/27/20 15:05 Cancel Darbepoetin Quang (Aranesp (Dialysis Use)) 200 mcg HD IV 07/27/20 15:15 08/03/20 10:14 DC 07/27/20 15:23 Darbepoetin Quang (Aranesp (Dialysis Use)) 200 mcg HD IV 08/03/20 10:15 08/03/20 10:24 Dextrose (Dextrose 50%) 25 ml ASDIRECTED PRN IV SEE LABEL COMMENTS 07/23/20 04:20 Dextrose/Sodium Chloride 1,000 ml @ 75 mls/hr [id number] IV 07/24/20 00:00 07/24/20 17:25 DC 07/24/20 00:12 Dextrose/Sodium Chloride 1,000 ml @ 75 mls/hr [id number] IV 07/24/20 15:00 UNV Docusate Sodium (Colace) 100 mg BID PO 07/24/20 21:00 08/06/20 08:12 Donepezil HCl (AriCEPT) 5 mg QHS PO 07/23/20 21:00 08/05/20 21:04 Ertapenem 0.5 gm/ Sodium Chloride 50 ml @ 100 mls/hr Q24H IV 07/23/20 16:00 08/02/20 11:58 DC 08/01/20 15:07 Ertapenem 1 gm/ Sodium Chloride 50 ml @ 100 mls/hr Q24H IV 07/23/20 11:40 07/23/20 12:21 DC Fentanyl Citrate (Sublimaze) 25 mcg Q5MP PRN IV PAIN LEVEL 5-10 07/24/20 15:15 07/24/20 16:15 DC Glucagon (Glucagon) 1 mg ASDIRECTED PRN SC SEE LABEL COMMENTS 07/23/20 04:20 Glucose (Glucose) 16 GM ASDIRECTED PRN PO SEE LABEL COMMENTS 07/23/20 04:20 Heparin Sodium (Heparin (Flush)) 200 units ASDIRECTED PRN IV SEE LABEL COMMENTS 07/25/20 17:00 08/06/20 06:41 Heparin Sodium (Heparin (Flush)) 200 units PICC IV 07/25/20 18:00 08/06/20 06:40 Heparin Sodium (Porcine) (Heparin) 5,000 units Q12H SC 07/24/20 21:00 07/25/20 22:15 DC 07/25/20 20:30 Heparin Sodium (Porcine) (Heparin) 5,000 units Q8H SQ 08/03/20 14:00 08/06/20 06:40 Home Med (Med Rec Complete!) ASDIRECTED XX 07/23/20 09:00 07/23/20 09:03 DC Hydromorphone HCl (Dilaudid) 0.5 mg Q5MP PRN IV PAIN LEVEL 4-7 07/24/20 15:15 07/24/20 16:15 DC 07/24/20 15:10 Insulin Human Lispro (HumaLOG INSULIN) SEE PROTOCOL TABLE AC SC 07/23/20 07:30 08/06/20 08:12 Insulin Human Lispro (HumaLOG INSULIN) SEE PROTOCOL TABLE QHS SC 07/23/20 21:00 Levalbuterol HCl (Xopenex Hfa) 2 puff Q4HP PRN INH SHORTNESS OF BREATH 07/23/20 13:30 07/26/20 01:03 Levalbuterol HCl (Xopenex Hfa) 2 puff RQ6H INH 07/23/20 14:00 08/06/20 07:17 Levalbuterol HCl (Xopenex Neb) 1.25 mg Q2HP PRN NEB WHEEZING 07/23/20 04:25 07/23/20 13:29 DC Levalbuterol HCl (Xopenex Neb) 1.25 mg RQ6H NEB 07/23/20 08:00 07/23/20 13:29 DC 07/23/20 07:34 Levetiracetam (Keppra) 500 mg BID PO 07/23/20 21:00 08/06/20 08:13 Levofloxacin 250 mg/IV Miscellaneous Supplies 50 ml @ 50 mls/hr Q48H IV 08/07/20 18:00 Levothyroxine Sodium (Synthroid) 25 mcg DAILY@0600 PO 07/24/20 06:00 08/06/20 06:40 Lidocaine (Lidoderm Patch) 1 patch DAILY TD 07/26/20 09:00 08/03/20 04:16 DC 08/02/20 09:33 Lidocaine (Lidoderm Patch) 2 patch DAILY TD 08/03/20 09:00 08/06/20 08:32 Lidocaine HCl (Lidocaine 1% Sdv) 0.5 ml ASDIRECTED PRN SC SEE LABEL COMMENTS 07/27/20 07:20 07/28/20 07:19 DC Lidocaine HCl (Lidocaine 1% Sdv) 0.5 ml ASDIRECTED PRN SC SEE LABEL COMMENTS 07/29/20 07:25 07/30/20 07:24 DC Lidocaine HCl (Lidocaine 1% Sdv) 0.5 ml ASDIRECTED PRN SC SEE LABEL COMMENTS 07/30/20 22:50 07/31/20 22:49 DC Lidocaine HCl (Lidocaine 1% Sdv) 0.5 ml ASDIRECTED PRN SC SEE LABEL COMMENTS 08/02/20 11:55 08/03/20 11:54 DC Lidocaine HCl (Lidocaine 1% Sdv) 0.5 ml ASDIRECTED PRN SC SEE LABEL COMMENTS 08/05/20 07:40 08/06/20 07:39 DC Magnesium Hydroxide (Milk Of Magnesia) 30 ml DAILY PO 07/24/20 09:00 08/06/20 08:13 Metoclopramide HCl (REGLAN INJection) 10 mg Q6HP PRN IV NAUSEA OR VOMITING 07/24/20 15:15 07/24/20 16:15 DC Midazolam HCl (Versed) 2 mg STAT STAT IV 07/28/20 14:12 07/28/20 14:15 DC 07/28/20 14:25 Miscellaneous (Unresolved Clarification Entry) SEE LABEL COMMENTS DAILY XX 07/31/20 09:00 07/31/20 15:13 DC 07/31/20 09:00 Naloxone HCl (Narcan) 0.1 mg Q5MP PRN IV RESP. RATE < 10 07/28/20 12:10 Naloxone HCl (Narcan) 0.4 mg STAT STAT IV 07/28/20 12:00 07/28/20 12:08 DC Non-Formulary Medication ( See Comment Field Below ) REMOVE LIDODERM PATCH DAILY@ XX 07/23/20 21:00 07/26/20 16:39 DC 07/23/20 21:00 Non-Formulary Medication ( See Comment Field Below ) REMOVE LIDODERM PATCH DAILY@ XX 07/26/20 21:00 08/04/20 23:24 Non-Formulary Medication ( See Comment Field Below ) REMOVE LIDODERM PATCH DAILY@ XX 08/03/20 21:00 08/05/20 00:32 Olanzapine (ZyPREXA) 5 mg BID PO 07/26/20 14:00 08/06/20 08:30 Ondansetron HCl (ZOFRAN INJection) 4 mg Q4HP PRN IV NAUSEA OR VOMITING 07/23/20 06:45 08/06/20 02:20 Ondansetron HCl (ZOFRAN INJection) 4 mg Q4HP PRN IV NAUSEA OR VOMITING 07/24/20 15:15 07/24/20 16:15 DC Oxycodone HCl (Roxicodone, Oxyir) 5 mg ASDIRECTED PRN PO PAIN LEVEL 1-4 07/24/20 15:15 07/24/20 16:15 DC Oxycodone HCl (Roxicodone, Oxyir) 10 mg BID PRN PO PAIN 07/23/20 10:40 07/28/20 12:10 DC 07/28/20 00:08 Oxycodone HCl (Roxicodone, Oxyir) 10 mg QHS PO 07/23/20 21:00 08/04/20 02:10 Oxycodone HCl (Roxicodone, Oxyir) 10 mg SuTuThSa@0900 PO 07/25/20 09:00 08/01/20 08:40 DC 07/30/20 10:06 Oxycodone HCl (Roxicodone, Oxyir) 10 mg SuTuThSa@0900 PRN PO PRN PAIN>5/10 ON PAIN SCALE 08/01/20 08:40 08/04/20 09:54 Oxycodone HCl (Roxicodone, Oxyir) 15 mg MoWeFr@0900 PO 07/24/20 09:00 08/01/20 08:40 DC 07/24/20 08:01 Oxycodone HCl (Roxicodone, Oxyir) 15 mg MoWeFr@0900 PRN PO >5/10 PAIN PRN MWF 9AM 08/01/20 08:40 Oxycodone/ Acetaminophen (Percocet 5mg/ 325mg Tablet) 1 tab Q4H PRN PO MODERATE PAIN (PS 5-7) 07/24/20 15:00 07/24/20 15:18 DC Oxycodone/ Acetaminophen (Percocet 5mg/ 325mg Tablet) 2 tab Q4H PRN PO SEVERE PAIN (PS 8-10) 07/24/20 15:00 07/24/20 15:18 DC Pantoprazole Sodium (Protonix) 40 mg DAILY PO 07/24/20 09:00 08/06/20 08:13 Polyethylene Glycol (Miralax) 1 pkt Q2D PO 07/24/20 09:00 08/05/20 06:45 Quetiapine Fumarate (SEROquel) 25 mg QHS PO 07/26/20 21:00 07/26/20 12:52 DC Sertraline HCl (Zoloft) 50 mg DAILY PO 07/24/20 09:00 08/06/20 08:13 Sodium Chloride 1,000 ml @ 30 mls/hr Q24H IV 07/24/20 15:15 07/24/20 16:15 DC 07/24/20 17:33 Sodium Chloride (Nacl 0.9%) 200 ml ASDIRECTED PRN IV SEE LABEL COMMENTS 08/05/20 07:40 08/06/20 07:39 DC Sodium Chloride (Saline Lock Flush) 10 ml ASDIRECTED PRN IV SEE LABEL COMMENTS 07/25/20 17:00 08/06/20 06:41 Sodium Chloride (Saline Lock Flush) 10 ml PICC IV 07/25/20 18:00 08/06/20 06:40 Sucralfate (Carafate) 1 gm ACHS PO 08/02/20 12:00 08/06/20 08:11 Tamsulosin HCl (Flomax) 0.4 mg DAILY PO 07/24/20 09:00 08/06/20 08:13 Trazodone HCl (Desyrel) 50 mg QHS PO 07/23/20 21:00 07/28/20 12:01 DC 07/28/20 00:07 Vitamin B Complex/ Vit C/Folic Acid (Nephro-Aubree Rx) 1 tab DAILY PO 07/24/20 09:00 08/06/20 08:13 Allergies Coded Allergies: Penicillins (Verified Allergy, Unknown, 07/23/20) cephalexin (Verified Allergy, Unknown, 07/23/20) chocolate flavor (Verified Allergy, Unknown, 07/23/20) ketorolac (Verified Allergy, Unknown, 07/23/20) metformin (Verified Allergy, Unknown, 07/23/20) methadone (Verified Allergy, Unknown, 07/23/20) nalbuphine (Verified Allergy, Unknown, 07/23/20) tetracycline (Verified Allergy, Unknown, 07/23/20) Sarah Marie MD Aug 06, 2020 13:41
[2020-08-06 14:00] VITALS: BP 156/96
[2020-08-06] MEDS: oxyCODONE 5MG TAB PO SCH (15:16)
[2020-08-06 22:00] VITALS: BP 148/60
[2020-08-06] MEDS: **NOTE PATIENT COMMENT** MISC XX SCH ×2 (22:08→22:41)
[2020-08-06] MEDS: DONEPEZIL 5 MG TAB PO SCH (22:40)
[2020-08-06] MEDS: ATORVASTATIN 20 MG TAB PO SCH (22:41)
[2020-08-07] MEDS: LEVALBUTEROL HFA 45MCG/ACT 15 GM INHALER INH SCH ×3 (01:04→13:46)
[2020-08-07 06:00] VITALS: BP 162/48
[2020-08-07] MEDS: HEPARIN SOD (PORCINE) 5000UNITS/ML 1ML VIAL/SYRINGE SQ SCH ×2 (06:31→14:55)
[2020-08-07] MEDS: SODIUM CHLORIDE 0.9% INJ 10 ML SYR IV SCH (06:31)
[2020-08-07] MEDS: LEVOTHYROXINE 25MCG TABLET (0.025MG) PO SCH (06:31)
[2020-08-07 06:32] VITALS: BP 162/48
[2020-08-07] MEDS: DOCUSATE SODIUM 100MG CAPSULE PO SCH (06:32)
[2020-08-07] MEDS: SUCRALFATE 1 GM TAB PO SCH ×2 (06:32→13:29)
[2020-08-07] MEDS: CARVedilol 3.125 MG TAB PO SCH (06:32)
[2020-08-07] MEDS: levETIRAcetam 250MG TABLET (KEPPRA) PO SCH (06:33)
[2020-08-07] MEDS: NEPHRO-VIT TAB (NEPHROCAPS) PO SCH (06:33)
[2020-08-07] MEDS: SERTRALINE HCL 50 MG TAB PO SCH (06:33)
[2020-08-07] MEDS: TAMSULOSIN 0.4 MG CAP PO SCH (06:33)
[2020-08-07] MEDS: MOM 30ML SUSPENSION UDC PO SCH (06:33)
[2020-08-07] MEDS: MIRALAX *UNIT DOSE* 17GM PACKET PO SCH (06:33)
[2020-08-07] MEDS: OLANZapine 5 MG TAB PO SCH (06:33)
[2020-08-07] MEDS: PANTOPRAZOLE 40MG TAB (PROTONIX) PO SCH (06:33)
[2020-08-07] MEDS: LIDOCAINE 5% (LIDODERM) PATCH TD SCH (06:34)
[2020-08-07] MEDS: ACETAMINOPHEN TAB 650MG DOSE (2X325MG) PO PRN ×2 (06:34→13:29)
[2020-08-07] MEDS: SODIUM CHLORIDE 0.9% INJ 10 ML SYR IV PRN (06:36)
[2020-08-07 06:55] LABS: HEMATOCRIT 28.7 % (42.0-52.0); HEMOGLOBIN 8.8 g/dl (13.5-17.5); MEAN CORPUSCULAR HEMOGLOBIN 28.4 pg (27.0-33.0); MEAN CORPUSCULAR HGB CONC 30.7 g/dl (32.0-36.5); MEAN CORPUSCULAR VOLUME 92.6 fl (80.0-96.0); PLATELET COUNT, AUTOMATED 227 10^3/uL (150-450); WHITE BLOOD COUNT 4.8 10^3/uL (4.0-10.0)
[2020-08-07 07:42] LABS: ALBUMIN 2.7 GM/DL (3.2-5.2); BILIRUBIN,TOTAL 0.4 MG/DL (0.2-1.0); CALCIUM LEVEL 8.3 MG/DL (8.8-10.2); CREATININE FOR GFR 4.29 MG/DL (0.70-1.30); GLOMERULAR FILTRATION RATE 14.8 (>49); POTASSIUM SERUM 5.2 MEQ/L (3.5-5.1); TOTAL PROTEIN 6.3 GM/DL (6.4-8.2)
[2020-08-07] MEDS: HumaLOG INSULIN (NovoLOG) PER UNIT SC SCH ×2 (07:59→13:30)
[2020-08-07] MEDS ORDERED: LEVO250T12 PO (08:13)
[2020-08-07] MEDS ORDERED: CARV6.25 PO (08:16)
[2020-08-07] MEDS ORDERED: LIDOCAINE 1% SDV 5ML VIAL SQ ONE (11:05)
--- NOTE | 2020-08-07 16:58 | DS.PDOC ---
Discharge Summary General Date of Admission Jul 23, 2020 at 02:10 Date of Discharge 08/07/20 Attending Physician: Sarah Marie MD Discharge Summary HISTORY OF PRESENT ILLNESS: 69 year old male with PMHx detailed below who initially presented to [facility] for acute onset shortness of breath and chest tightness. He states that his symptoms began on Monday morning about 10 minutes after waking up, while he was still laying comfortably in bed. He states he has never had symptoms like this before. He describes shortness of breath which is worse upon sitting up and improve while laying flat. He also notes a chest tightness in the middle of his chest. He states this is worse when he is feeling short of breath. He denies radiation of the pain. He reports lightheadedness as well during the episodes of shortness of breath. Additionally the patient has had ab dominal pain which he states has been present since Monday as well. He notes he has been vomiting 4-6 times per day and unable to keep down sold food at times. He states he has had decreased appetite for the past 6 weeks as he has been in and out of the hospital. He notes he has lost about 15lbs over the past 6 weeks. He denies bloody vomitus. He states he is incontinent of stool and has not been made aware of any blood in his stool or black, tarry stools. While the patient was admitted to [facility], he was transfused with 2 units PRBCS due to Hg level of 6.7. He was also evaluated with CT of the abdomen and pelvis for his abdominal pain, discussed below. Additionally a CT chest was ordered. Patient was ultimately found to have pericardial effusion, pleural effusion, and acute anemia transferred to [facility] for further evaluation. HOSPITAL COURSE: On 07/27/2019 patient was found to have hemorrhagic pericarditis and pericardial effusion which later resolved with pericardial window and tube pericardiostomy probably secondary to Eliquis anticoagulation. On 07/27/2020 the patient had right-sided abdominal wall pain with no clear etiology seen on imaging. He had a transversus abdominis plain block by surgery which did help relieve some of his anterior wall pain. On the patient had insertion of a left lateral chest tube done by cardiothoracic surgery which helped his breathing immensely. He later went for an EGD for right upper quadrant pain/ Pneumomediastinum secondary to pericardial windowNo signs of perforated viscus on EGD- only showed chronic esophagitis and gastritis on 07/29/2020. He was followed closely by cardiothoracic surgery and chest tubes that are taken out. I'll request was stopped and held due to his recent hemorrhagic on locations. He had multiple episodes of altered mental status which was believed to be secondary to acute delirium. Early on his hospitalizations they thought this was secondary to opioids and later urinary tract infection; however, despite being on appropriate antiemetic therapy the patient would still have episodes of acute delirium. This was likely secondary to his prolonged hospital stay and underlying vascular dementia. This was discussed with the family that this could continue potentially and that this may become a chronic issue. He was treated appropriately for esophagitis/gastritis which was found on EGD. He also suffered from chronic chest pain after his procedures and chest tubes intermittently. He had multiple cardiac workups after his pericardial window but they were all negative for acute issues. Other chronic issues remained stable. The patient requires many needs at home and home services was offered to patient's family who insist on taking him back. They have refused home services. He has follow-up with his outpatient waiter/waitress formal and on 08/07/2020 the patient was discharged home. His daughter was updated several times and made aware of the plan for discharge. At the time of discharge the patient had no acute complaints. PAST MEDICAL HISTORY: Diabetes Mellitus PVD s/p bilateral BKA ESRD on HD Hx of PE, on Eliquis Anemia of chronic disease CHF with diastolic dysfunction Depression Seizure disorder Hypothyroidism Vascular dementia COVID 19 infection 04/2020 PAST SURGICAL HISTORY: Tonsillectomy and adenoidectomy Posttraumatic rhinoplasty Carpal tunnel release Appendectomy Cholecystectomy Two surgeries for bowel obstructions including bowel resection Bilateral BKA Possible additional procedures related to trauma which the patient cannot elaborate on SOCIAL HISTORY: Never smoker. No alcohol use. No history IV drug or illicit substance use. Lives at home with family. Two dogs at home. 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 Former member of the [employer] with deployments to [place], [place], [place], and [place] FAMILY HISTORY: Father from lung CA, heavy smoker. Mother from leukemia. DISCHARGE MEDICATIONS: Please see below PHYSICAL EXAMINATION at discharge: VS: Please see below GENERAL: confused at times, AAOx3 HEENT: PERRLA, AT/NC, EOM intact NECK: No jugular venous distension (JVD), thyromegaly, or cervical lymphadenopathy. Moist mucous membranes. PULM: Lungs diminished without any rales. CHEST: Multiple well healing scars, scabbed lesions, tender to touch but no erythema present CVS: S1, S2, sinus rhythm. no m/r/g GI: tenderness of RUQ without organomegaly, bruising. Obese, soft, nondistended. EXT: Bilateral below-knee amputation (BKA)., no swelling, pulses present and strong INTEG: Stage 1 decub ulcer, clean, nonsuppurative PSYCH: mood and affect appropriate LABORATORY DATA: Please see below MICROBIOLOGY: UA + UCx NG thus far Blood cultures NG to date IMAGING: CT abd/pelvis: Stable findings in the lung bases. Small amount of pericardial fluid or thickening unchanged. Stable superficial hematoma along the right anterior pericardium extending into the midline of the upper abdominal wall. No acute findings are seen in the abdomen. DIAGNOSES AT TIME OF DISCHARGE: 1. Delerium possibly 2/2 to UTI and intermittent confusion/delerium from prolonged hospital stay with underlying vascular dementia. May take some time to improve. 2. Pericardial effusion status post pericardial window. 3. Left-sided pleural effusion secondary to fluid overload from end-stage renal disease on dialysis status post right thoracotomy tube which has been removed. 4. Hemorrhagic pericardial effusion secondary to Eliquis. 5. History of pulmonary embolism (PE) on chronic Eliquis discontinued due to recent hemorrhagic pleural effusion. Repeat CT chest has no pulmonary embolism (PE). 6. Right upper quadrant abdominal pain, possibly 2/2 to chronic pancreatitis vs. abd wall neuropathic pain 7. Musculoskeletal chest pain likely 2/2 to recent surgery, intermittent 8. Esophagitis/gastritis with persistent abdominal discomfort found on EGD. 9. Pneumomediastinum secondary to pericardial window, resolved. No signs of perforated viscus on EGD. 10. Peripheral vascular disease with bilateral below-knee amputation. 11. BPH, chronic. 12. Depression, chronic. 13. Hx of seizures 14. ESRD on HD 15. Hypertension 16. Sacral decubitus ulcer PLAN: Discharge home today to follow up with PCP, cardiology, nephrology after discharge. Patient's family does not wish to have o/p home services. A wound care referral offered but family would not like one at this time. TIME SPENT ON DISCHARGE: 40 minutes. Vital Signs/I&Os Vital Signs Date Time Temp Pulse Resp B/P (MAP) Pulse Ox O2 Delivery O2 Flow Rate FiO2 08/07/20 08:15 2.0 08/07/20 06:32 74 162/48 08/07/20 06:00 97.8 18 99 Nasal Cannula I&O- Last 24 Hours up to 6 AM 08/07/20 06:00 Intake Total 1207 ml Output Total 0 ml Balance 1207 ml Laboratory Data Labs 24H Laboratory Tests 2 08/06/20 17:31: Bedside Glucose (Misc Panel) 173H 08/06/20 21:05: Bedside Glucose (Misc Panel) 134H 08/07/20 06:42: Nucleated Red Blood Cells % (auto) 0.0, Anion Gap 6L, Glomerular Filtration Rate 14.8L, Calcium Level 8.3L, Total Bilirubin 0.4, Aspartate Amino Transf (AST/SGOT) 17, Alanine Aminotransferase (ALT/SGPT) 8L, Alkaline Phosphatase 97, Total Protein 6.3L, Albumin 2.7L, Albumin/Globulin Ratio 0.8 08/07/20 13:07: Bedside Glucose (Misc Panel) 126H CBC/BMP Laboratory Tests 08/07/20 06:42 FSBS Laboratory Tests Test 08/06/20 17:31 08/06/20 21:05 08/07/20 13:07 Range/Units Bedside Glucose (Misc Panel) 173 134 126 80-115 MG/DL Microbiology Microbiology 08/05/20 Urine Culture, Received Pending 08/05/20 Blood Culture - Preliminary, Resulted No Growth after 48 hours. All Specime... 08/05/20 Blood Culture - Preliminary, Resulted No Growth after 48 hours. All Specime... 07/28/20 Acid Fast Stain, Received Pending 07/28/20 Mycobacterial Culture, Received Pending 07/28/20 Fungal Smear, Received Pending 07/28/20 Fungal Culture, Received Pending 07/28/20 Gram Stain - Final, Complete 07/28/20 Anaerobic Culture - Final, Complete 07/28/20 Body Fluid Culture - Final, Complete Discharge Medications Scheduled Atorvastatin Calcium (Atorvastatin Calcium) 80 Mg Tablet, 80 MG PO QHS, (Reported) Carvedilol (Carvedilol) 6.25 Mg Tablet, 3.125 MG PO BID Cholecalciferol (Vitamin D3) (Vitamin D3) 1,000 Unit Tablet, 2,000 UNITS PO DAILY, (Reported) Donepezil HCl (Donepezil HCl) 5 Mg Tablet, 5 MG PO QHS, (Reported) Folic Acid/Vit B Complex and C (Rhina-Aubree Tablet) 0.8 Mg Tablet, 1 TAB PO DAILY, (Reported) Furosemide (Lasix) 80 Mg Tablet, 80 MG PO BID, (Reported) Insulin Glargine (Lantus) 100 Unit/1 Ml Vial, 10 UNITS SC QHS, (Reported) Insulin Human Lispro (Humalog) 100 Unit/1 Ml Vial, 15 UNITS SC AC, (Reported) GIVE UP TO 5 ADDITIONAL UNITS IF GLUCOSE > 250 Levetiracetam (Keppra) 500 Mg Tablet, 500 MG PO BID, (Reported) Levofloxacin (Levofloxacin) 250 Mg Tablet, 250 MG PO Q48H Levothyroxine Sodium (Synthroid) 50 Mcg Tablet, 25 MCG PO DAILY, (Reported) Lidocaine (Lidocaine) 5% Adh..patch, 1 PATCH TOP 3XW, (Reported) APPLY TO LOWER BACK BEFORE DIALYSIS Olanzapine (Olanzapine) 5 Mg Tablet, 5 MG PO BID Oxycodone HCl (Oxycodone HCl) 10 Mg Tablet, 10 MG PO QHS, (Reported) Oxycodone HCl (Oxycodone HCl) 10 Mg Tablet, 10 MG PO 4XWK, (Reported) ON NON-DIALYSIS DAYS Oxycodone HCl (Oxycodone HCl) 10 Mg Tablet, 15 MG PO 3XW, (Reported) BEFORE DIALYSIS ON DIALYSIS DAYS ONLY Pantoprazole Sodium (Pantoprazole Sodium) 40 Mg Tablet.dr, 40 MG PO DAILY, (Reported) Polyethylene Glycol 3350 (Miralax) 17 Gm Powd.pack, 17 GM PO Q2D, (Reported) Sertraline HCl (Sertraline HCl) 50 Mg Tablet, 50 MG PO DAILY, (Reported) Silver Sulfadiazine (Ssd) 50 Gm Cream..g., 1 DOSE TOP ASDIRECTED, (Reported) APPLY TO BUTTOCKS AFTER BATHROOM Sucralfate (Sucralfate) 1 Gm Tablet, 1 GM PO ACHS Tamsulosin HCl (Flomax) 0.4 Mg Capsule, 0.4 MG PO DAILY, (Reported) Trazodone HCl (Trazodone HCl) 50 Mg Tablet, 50 MG PO QHS, (Reported) Scheduled PRN Albuterol Sulfate (Ventolin Hfa) 18 Gm Hfa.aer.ad, 2 PUFFS INH BID PRN for SHORTNESS OF BREATH, (Reported) Diphenhydramine HCl (Diphenhydramine HCl) 25 Mg Capsule, 25 MG PO BID PRN for ITCHING, (Reported) Ondansetron HCl (Zofran) 4 Mg Tablet, 4 MG PO Q8H PRN for NAUSEA, (Reported) Oxycodone HCl (Oxycodone HCl) 10 Mg Tablet, 10 MG PO BID PRN for PAIN, (Reported) 4-6 HOURS BETWEEN DOSES Allergies Coded Allergies: Penicillins (Verified Allergy, Unknown, 07/23/20) cephalexin (Verified Allergy, Unknown, 07/23/20) chocolate flavor (Verified Allergy, Unknown, 07/23/20) ketorolac (Verified Allergy, Unknown, 07/23/20) metformin (Verified Allergy, Unknown, 07/23/20) methadone (Verified Allergy, Unknown, 07/23/20) nalbuphine (Verified Allergy, Unknown, 07/23/20) tetracycline (Verified Allergy, Unknown, 07/23/20) Sarah Marie MD Aug 07, 2020 16:58
[2020-08-07] MEDS ORDERED: LevoFLOXacin IV 250 MG in IV 1 EA IV SCH (18:00)
--- NOTE | 2020-08-07 20:39 | IPN ---
PROGRESS NOTE DATE: 08/07/2020 SUBJECTIVE: Mr. Andrade is seen this morning during hemodialysis. He is very agitated and confused. He currently has a sitter on the bedside. Nursing staff reports that he has been agitated since this morning. PHYSICAL EXAMINATION: VITALS: Temperature 97.8 degrees Fahrenheit, heart rate 74 per minute, respiratory rate 18 per minute, blood pressure 148/60 mmHg, oxygen saturation 99% on 2 liters oxygen. HEENT: Head is atraumatic. Neck is supple and JVD not abnormally elevated. LUNGS: Clear to auscultation. HEART: Sounds are regular. ABDOMEN: Soft and nontender. Bowel sounds are present. EXTREMITIES: Without any cyanosis or clubbing. Right arm AV graft is patent and currently being used for dialysis. NEUROLOGIC: He is quite agitated and has periods of restfulness and agitation. LABORATORY STUDIES: Today's labs show WBC 4.8, hemoglobin 8.8, hematocrit 28.7. Sodium 137, potassium 5.2, BUN 41, creatinine 4.29, glucose 190 and calcium 8.3. PROBLEMS: 1. End-stage renal disease: Patient is being dialyzed and will continue with dialysis for 3-1/2 hours. He is tolerating it well so far. 2. Hyperkalemia: Patient has mild hyperkalemia, which is likely to improve as we are using 2.0 mEq potassium in the dialysis bag. 3. Anemia: His anemia has been stable and we will continue with weekly dose of Aranesp. 4. Hypertension: Blood pressure seems very well controlled on current medications. 5. Altered mentation: Etiology is uncertain. He seems to have acute delirium. I would recommend consider stopping the Levofloxacin and switch to a different antibiotic.
--- NOTE | 2020-08-10 12:10 | ROOPDOC ---
[facility] Report Of Operation Report of Operation DATE OF PROCEDURE: 07/29/20 PREPROCEDURE DIAGNOSES: right side abdominal wall pain. POSTPROCEDURE DIAGNOSES: same. PROCEDURE: US guided transversus abdominis plane block using mixture of Exparel and 1/4% Marcaine. SURGEON: Kin Alba MD COMMODITIES REQUIREMENTS ANALYST: ANESTHESIA: IV sedation (MAC). ESTIMATED BLOOD LOSS: Approximately 0 mL. COMPLICATIONS: none. REMARKS: I did a trial of transversus abdominis block with a mixture of 1% lidocaine and 1/4% Marcaine 2 days ago and he had a good reoperative abdomen to the lower abdomen the still maintains he has tenderness over the area. He is present here today for an upper endoscopy. The same time I would do a more therapeutic transversus abdominis block using a longer acting mixture of Exparel and 1/4% Marcaine. DESCRIPTION OF PROCEDURE: Patient was brought to the procedure room at the outpatient procedures suite. He remained on his stretcher placed on the slight left lateral decubitus position to access the right lateral lower abdomen. After placement of monitoring leads, oxygen provided to the patient via face mask. IV sedation and started. We paused for a surgical timeout using both pre-incision safety checklist to verify correct patient, procedure site and additional clinical information prior to beginning the procedure Under ultrasound guidance the layers of the lateral oblique muscles were scanned above the anterior superior iliac spine on that side. Using a Stimuplex 16 cm 20-gauge needle, the plane between the transversus abdominis and internal oblique was located. A test dose was placed and it looks like and adequate placement. A total of 30 mL of the combination of Exparel and 1/4% Marcaine was infiltrated to this plane between the transversus abdominis and internal oblique under ultrasound guidance. An additional 10 mL was placed along the iliohypogastric nerve tract on the right lower abdomen to try and see if we can relieve the lower abdominal pain also. We then proceeded with the endoscopy which will be documented separately. KIN ALBA MD Aug 10, 2020 12:10
== END 2020-08-07 17:29 | disposition home or self-care (01) | DRG 270 ==
LOC: M ICU 07-23 02:10 → EEVIPCON 07-23 02:10 → M PCU 07-30 12:57 → M MSPAV 08-02 11:12
PROVIDERS: ADMIT Family Medicine; ATTEND Internal Medicine
PROC: 02HV33Z Insertion of Infusion Device into Superior Vena Cava, Percutaneous Approach (ICD-10-PCS; 2020-07-23)
PROC: 30233N1 Transfusion of Nonautologous Red Blood Cells into Peripheral Vein, Percutaneous Approach (ICD-10-PCS; 2020-07-24)
PROC: 0W9D00Z Drainage of Pericardial Cavity with Drainage Device, Open Approach (ICD-10-PCS; principal; 2020-07-28)
PROC: 0PB00ZZ Excision of Sternum, Open Approach (ICD-10-PCS; 2020-07-28)
PROC: 0DB98ZX Excision of Duodenum, Via Natural or Artificial Opening Endoscopic, Diagnostic (ICD-10-PCS; 2020-07-29)
PROC: 0DB68ZX Excision of Stomach, Via Natural or Artificial Opening Endoscopic, Diagnostic (ICD-10-PCS; 2020-07-29)
PROC: 3E0M3BZ Introduction of Anesthetic Agent into Peritoneal Cavity, Percutaneous Approach (ICD-10-PCS; 2020-07-29)
DX: I31.3 Pericardial effusion (noninflammatory) (principal); N18.6 End stage renal disease; J90 Pleural effusion, not elsewhere classified; I13.2 Hypertensive heart and chronic kidney disease with heart failure and with stage 5 chronic kidney disease, or end stage renal disease; I50.32 Chronic diastolic (congestive) heart failure; Z68.43 Body mass index [BMI] 50.0-59.9, adult; D68.32 Hemorrhagic disorder due to extrinsic circulating anticoagulants; G40.909 Epilepsy, unspecified, not intractable, without status epilepticus; E11.22 Type 2 diabetes mellitus with diabetic chronic kidney disease; E66.9 Obesity, unspecified; M79.81 Nontraumatic hematoma of soft tissue; K29.70 Gastritis, unspecified, without bleeding; K20.90 Esophagitis, unspecified without bleeding; E03.9 Hypothyroidism, unspecified; Z89.511 Acquired absence of right leg below knee; Z89.512 Acquired absence of left leg below knee; E11.51 Type 2 diabetes mellitus with diabetic peripheral angiopathy without gangrene; D63.1 Anemia in chronic kidney disease; D50.0 Iron deficiency anemia secondary to blood loss (chronic); Z79.01 Long term (current) use of anticoagulants; Z86.711 Personal history of pulmonary embolism; Z79.899 Other long term (current) drug therapy; Z79.4 Long term (current) use of insulin; Z88.0 Allergy status to penicillin; Z88.8 Allergy status to other drugs, medicaments and biological substances; Z91.018 Allergy to other foods